=== PATIENT | female | born 1935 | race Caucasian/White ===

== ENCOUNTER 2020-05-15 11:42 | Outpatient (CLI) | payer MEDICARE, OTHER, SELFPAY ==
--- NOTE | 2020-05-21 16:11 | ONC FU_ITS ---
Dr. Kingston Patient Follow-Up Note Patient: Tonia Potts Unit #: [id number]: 1935 Dicatated By: Estuardo Kingston M.D.Date of Visit:May 15, 2020 Onc Med Follow-up/Prog Note Chief Complaint: Monoclonal gammopathy. 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 She had presented with progressive renal function decline over a course of several months. Her hemoglobin had decreased to 11 g/dl in February of 2011. Her serum protein electrophoresis revealed 0.38 g of monoclonal protein, IgG kappa subtype. A skeletal survey was unremarkable. On 05/07/2011 bone marrow biopsy showed no increase in plasma cells. Cytogenetics were normal. [place]/lambda ration was 4.74 on 09/08/2011. An MRI of the spine in August 2011 showed no evidence of myeloma or plasmacytoma. There was no M protein on 24 hour UPEP in February 2012 and in September 2012. Frther urine testing was therefore stopped. As her evaluation was consistent with monoclonal gammopathy of undetermined significance, she was followed observation/expectant management. She also continued regular follow-up with her coin purse framer. As of her follow-up visit in January 2018 there had been no significant change in her M protein and no clinical evidence of myeloma. Subsequent to that visit she was diagnosed with a deep vein thrombosis of the left leg, for which she was given 3-4 months of anticoagulation with a apixaban. Her other medical illnesses include hypertenison, dyslipidemia, stage III chronic kidney disease, and hypothyroidism. She has additional history of B12 deficiency. She is a nonsmoker. INTERIM HISTORY: As of her follow-up visit in April 2019 her M protein had remained stable at 0.35 g/dL and she appeared stable clinically with no evidence of myeloma. She continued observation/expectant management. She is seen for a follow-up visit. She says that most of time she feels pretty good. However, she does complain that she has been having weak spells. They come on suddenly, and she says it feels like she has to sit down right away or she will fall. She has not had any actual loss of consciousness. She continues to have limited mobility, and for the past several months she has been using a walker to ambulate. She is still able to do light work, though. Her ECOG score is 1. She has good appetite. She does not have fever or night sweats. She has nonproductive cough associated with sinus drainage. She does not complain of shortness of breath. She has had a little bit of chest pain in the substernal area, which she describes as just the pain and then it is gone . She occasionally has nausea. She sometimes has diarrhea. She has urinary frequency and nocturia, and she has some urgency with urination. She has pain in her knees and she says her knees sometimes give out. She has a little arthritis in her right thumb. She has generalized muscle weakness. She does not complain of headache. She occasionally feels a little bit dizzy. She has no numbness/paresthesia or other focal neurologic symptoms. Medications: amLODIPine Besylate Tablet Oral, Cholecalciferol 1 (2000 Units) Tablet Oral daily, Fiber (Guar Gum) 2 Tablet, chewable Oral daily, Lasix 1 (40 mg) Tablet Oral daily, Levothyroxine Sodium 1 (50 mcg) Tablet Oral daily, Metoprolol Succinate ER 1 (25 mg) Tablet SR 24 HR Oral daily, PreserVision AREDS 2 Tablet Oral daily Allergies: Clindamycin HCl, Penicillins, and Sulfa Drugs. Review of Systems: Constitutional - She says she feels pretty good most of the time, though she has had some weak spells. Her energy is otherwise okay, though for the past several months she has been using a walker to ambulate. She is still able to do light work. She has good appetite. She does not have fever or night sweats. ECOG score is 1, ENMT - She has sinus drainage. No mouth sores. No sore throat or difficulty swallowing, Hematologic/Lymphatic - She says she bruises pretty easily, Respiratory - No shortness of breath. She has nonproductive cough. No pleuritic pain or hemoptysis, Cardiovascular - She has had a little bit of chest pain in the substernal area. She says it is just a pain and then it is gone . She has had no palpitations, Gastrointestinal - She occasionally has nausea. No heartburn or acid reflux. She sometimes has diarrhea. No blood in the stool or black stools, Genitourinary (F) - No dysuria or hematuria. She has urinary frequency and nocturia, and she has some urgency with urination. No incontinence, Musculoskeletal - She has some arthritis pain, particularly in her right thumb. She has pain in her knees, and she complains that her knees sometimes give out. She has generalized muscle weakness, Integumentary - No skin rash, Neurologic - No headache. She occasionally feels a little bit dizzy. No numbness or tingling. No other focal neurologic symptoms, Psychiatric - No anxiety or depression. No insomnia. Vital Signs: Performed on May 15, 2020 11:20 Height - 67.00 in Weight - 194 lbs (LOW) BSA - 2.00 sq.m BMI - 30.38 (HIGH) Temperature - 97.0 F (LOW) Pulse - 77 /min Respiration - 18 /min BP - 128/70 mm(hg) O2 Sat - 98 % Pain - 0 Physical Examination: Constitutional - She appears somewhat weak generally, and she has limited mobility, Eyes - Sclerae nonicteric. Conjunctivae clear, ENMT - No lesions noted in the oral cavity, Hematologic/Lymphatic - No cervical, clavicular, or axillary adenopathy, Respiratory - Lungs are clear with good air movement bilaterally, Cardiovascular - Heart rhythm is regular. There is no murmur, gallop or rub noted, Abdomen - Soft. Liver and spleen are not enlarged. There is no abdominal mass or ascites noted and there is no inguinal adenopathy, Extremities - There are venous stasis changes bilaterally, and there is 2+ lower extremity edema. Dorsalis pedis pulses are palpable bilaterally, Neurologic - No focal neurologic deficits noted. Lab/Imaging: Test performed on May 08, 2020 09:40 Glucose 76 mg/dL Protein, Total 6.3 g/dL Albumin, SPE 3.80 g/dL BUN 34 mg/dL Creatinine 1.23 mg/dL Cr Clearance (Est) 48.37 mL/min Sodium 135 mmol/L Potassium 4.0 mmol/L Chloride 100 mmol/L CO2 26 mmol/L Calcium 10.0 mg/dL Albumin 4.0 g/dL Bilirubin, Total 0.7 mg/dL Alkaline Phosphatase 83 IU/L AST (SGOT) 17 IU/L ALT (SGPT) 10 IU/L Sed Rate 16 mm/hr WBC 4.4 10^9/L RBC 3.99 10^12/L HGB 12.3 g/dL HCT 38.2 % MCV 95.7 fl MCH 30.8 pg MCHC 32.2 g/dL RDW 13.0 % Platelet Count 260 10^9/L MPV 9.3 fL Neutrophils (Gran) 2.89 10^9/L Lymphocytes 0.93 10^9/L Monocytes 0.44 10^9/L Eosinophils 0.10 10^9/L Basophils 0.02 10^9/L Manual Lymphocytes 21 % Manual Monocytes 10 % Manual Eosinophils 2 % Manual Basophils 1 % Ztlcb-[id number]-[id number] 0.28 g/dL Ghrbs-3-snlwtbkn 0.78 g/dL Beta Globulin 0.661 g/dL Gamma Globulin 0.80 g/dL SPE Interpretation No significant change in monoclonal proteinemia since prior study Impression: 1. 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 It was initially discovered in February 2011. Her evaluation at that time showed no evidence of myeloma. She has been followed on observation/expectant management. 2. She had pre-existing chronic kidney disease, and she had been showing decline in renal function, but it subsequently improved and stabilized. Her other medical illnesses include: 3. Hypertension. 4. Dyslipidemia. 5. Hypothyroidism. 6. She has history of cardiac arrhythmia, which I had assumed was atrial fibrillation or possibly SVT. As of her follow-up visit in January 2018 there had been no significant change in her M protein. Subsequent to that visit, she had developed worsening lower extremity edema, requiring increase in her diuretic therapy. She also required treatment for deep vein thrombosis of the left leg. However, as of her follow-up visit in April 2019 her M protein had remained stable, and there was still no clinical evidence of myeloma. Since her last visit, there has been some further decline in her mobility and in her performance status. She has had episodes described as weak spells . At this point I am not sure whether those are related more to dysequilibrium or to near syncope. Her blood counts, though, remain normal, her renal function has remained stable, and there also has been no change in her M protein level, which currently quantitated 0.41 g/dL. There has been an increase in her free kappa light chain, the significance of which is uncertain. However, by clinical evaluation, she does not have any evidence of symptomatic myeloma. Plan: She remains on observation/expectant management. As a precaution, I am going to have her bring in a 24-hour urine to check for monoclonal protein excretion. I will timely just plan a follow-up visit again in 1 year. Signed By: Estuardo Kingston M.D. <<Signature on File>>
== END 2020-05-15 11:43 | disposition home or self-care (01) ==
LOC: ONCMED 11:43
PROVIDERS: PCP Physician Assistant Medical; Visit Provider Internal Medicine Medical Oncology
DX: D47.2 Monoclonal gammopathy (principal); R53.1 Weakness; I12.9 Hypertensive chronic kidney disease with stage 1 through stage 4 chronic kidney disease, or unspecified chronic kidney disease; N18.9 Chronic kidney disease, unspecified; E78.5 Hyperlipidemia, unspecified; E03.9 Hypothyroidism, unspecified; I49.9 Cardiac arrhythmia, unspecified; Z86.718 Personal history of other venous thrombosis and embolism
CPT/HCPCS: G0463

== ENCOUNTER 2021-07-22 14:15 | Outpatient (CLI) | payer MEDICARE, OTHER, SELFPAY ==
[2021-07-22 15:37] LABS: Basophils # 0.1 10^3/uL (0.0-0.1); Basophils % 0.8 %; Eosinophils # 0.1 10^3/uL (0.0-0.8); Eosinophils % 1.1 %; Hematocrit 43.8 % (37.0-47.0); Hemoglobin 13.9 g/dL (11.5-15.3); Lymphocytes # 1.3 10^3/uL (0.8-4.8); Lymphocytes % 20.2 %; Mean Corpuscular HGB Conc 31.7 g/dL (30.0-36.0); Mean Corpuscular Hemoglobin 30.1 pg (28.0-34.0); Mean Corpuscular Volume 94.8 fl (81-99); Mean Platelet Volume 9.7 fL (7.4-10.4); Monocytes # 0.5 10^3/uL (0.2-0.9); Monocytes % 8.1 %; Neutrophils # 4.56 10^3/uL (1.8-7.7); Neutrophils % 69.6 %; Nucleated Red Blood Cells % 0 %; Platelet Count 273 10^3/cmm (130-400); Red Blood Count 4.62 10^6/uL (4.1-5.3); Red Cell Distribution Width 13.3 % (12.1-15.1); White Blood Count 6.5 10^3/uL (4.0-10.0)
[2021-07-22 16:00] LABS: Alanine Aminotransferase 12 U/L (0-33); Albumin Level 4.2 g/dL (3.5-5.2); Alkaline Phosphatase 88 IU/L (35-105); Anion Gap 16.2 (5-19); Aspartate Amino Transferase 17 U/L (0-32); Blood Urea Nitrogen 40 mg/dL (8-23); Calcium 9.9 mg/dL (8.5-10.5); Carbon Dioxide 26 mmol/L (22-29); Chloride 99 mmol/L (98-107); Globulin 2.8 g/dL (1.3-4.6); Glucose 87 mg/dL (65-115); Osmolality Calculated 293 mOsm/kg (285-295); Potassium 4.2 mmol/L (3.5-5.1); Sodium 137 mmol/L (136-145); Total Bilirubin 0.9 mg/dL (0.15-1.2)
--- NOTE | 2021-07-22 20:14 | ONC FU_ITS ---
Dr. Kingston Patient Follow-Up Note Patient: Tonia Potts Unit #: [id number]: 1935 Dicatated By: Estuardo Kingston M.D.Date of Visit:Jul 22, 2021 Onc Med Follow-up/Prog Note Chief Complaint: Monoclonal gammopathy. 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 She had presented with progressive renal function decline over a course of several months. Her hemoglobin had decreased to 11 g/dl in February of 2011. Her serum protein electrophoresis revealed 0.38 g of monoclonal protein, IgG kappa subtype. A skeletal survey was unremarkable. On 05/07/2011 bone marrow biopsy showed no increase in plasma cells. Cytogenetics were normal. [place]/lambda ration was 4.74 on 09/08/2011. An MRI of the spine in August 2011 showed no evidence of myeloma or plasmacytoma. There was no M protein on 24 hour UPEP in February 2012 and in September 2012. Frther urine testing was therefore stopped. As her evaluation was consistent with monoclonal gammopathy of undetermined significance, she was followed observation/expectant management. She also continued regular follow-up with her charm filter operator helper. As of her follow-up visit in January 2018 there had been no significant change in her M protein and no clinical evidence of myeloma. Subsequent to that visit she was diagnosed with a deep vein thrombosis of the left leg, for which she was given 3-4 months of anticoagulation with a apixaban. With her follow-up visit in April 2019 her M protein remained stable at 0.35 g/dL. Her other medical illnesses include hypertenison, dyslipidemia, stage III chronic kidney disease, and hypothyroidism. She has additional history of B12 deficiency. She is a nonsmoker. INTERIM HISTORY: As of April 2020 her M protein was stable at 0.41 g/dL and she appeared stable clinically with no evidence of myeloma. She continued observation/expectant management. She is seen for a follow-up visit. She has been feeling pretty good generally. She does have limited activity, which she is still able to live independently. She ambulates with a walker and she does her housework. ECOG score is 1. She has good appetite. She has no fever or night sweats. She has sinus drainage and states sometimes has cough. She does not complain of shortness of breath or chest pain. She occasionally has nausea and she also has some mild constipation. She has chronic lower extremity edema, and she gets up 4-5 times during the night to void. She complains of her knees give out and sometimes her ankles give out. She otherwise has no joint or bone pain. She does not complain of headache or dizziness, and she has no focal neurologic symptoms. Medications: amLODIPine Besylate Tablet Oral, Cholecalciferol 1 (2000 Units) Tablet Oral daily, Fiber (Guar Gum) 2 Tablet, chewable Oral daily, Lasix 1 Tablet (of 40 mg) Oral daily, Lasix 1 (40 mg) Tablet Oral daily, Levothyroxine Sodium 1 (50 mcg) Tablet Oral daily, Metoprolol Succinate ER 1 (25 mg) Tablet SR 24 HR Oral daily, PreserVision AREDS 2 Tablet Oral daily Allergies: Clindamycin HCl, Penicillins, and Sulfa Drugs. Vital Signs: Performed on Jul 22, 2021 15:37 Height - 67.00 in Weight - 186 lbs (LOW) BSA - 1.96 sq.m BMI - 29.13 Temperature - 96.0 F (LOW) Pulse - 78 /min Respiration - 18 /min BP - 129/89 mm(hg) O2 Sat - 97 % Pain - 0 Fatigue - 6 Physical Examination: Constitutional - She has limited mobility, but she otherwise looks pretty good generally, Eyes - Sclerae nonicteric. Conjunctivae clear, ENMT - No lesions noted in the oral cavity, Hematologic/Lymphatic - No cervical, clavicular, or axillary adenopathy, Respiratory - Lungs are clear with good air movement bilaterally, Cardiovascular - Heart rhythm is regular. There is no murmur, gallop or rub noted, Abdomen - Soft. Liver and spleen are not enlarged. There is no abdominal mass or ascites noted and there is no inguinal adenopathy, Extremities - There are venous stasis changes bilaterally, and there is 2+ lower extremity edema, Neurologic - No focal neurologic deficits noted. Lab/Imaging: Test performed on Jul 22, 2021 15:14 Sodium 137 mmol/L Potassium 4.2 mmol/L Chloride 99 mmol/L CO2 26 mmol/L Anion Gap 16.2 BUN 40 mg/dL Creatinine 1.1 mg/dL Cr Clearance (Est) 48.9000 mL/min Glucose 87 mg/dL Osmolality - Calculated 293 mOsm/kg Calcium 9.9 mg/dL Protein, Total 7.0 g/dL Albumin 4.2 g/dL Globulin 2.8 g/dL Bilirubin, Total 0.9 mg/dL ALT (SGPT) 12 U/L AST (SGOT) 17 U/L Alkaline Phosphatase 88 IU/L WBC 6.5 10 3/uL RBC 4.62 10 6/uL HGB 13.9 g/dL HCT 43.8 % MCV 94.8 fl MCH 30.1 pg MCHC 31.7 g/dL RDW 13.3 % Platelet Count 273 10 3/cmm MPV 9.7 fL Neutrophils 4.56 10 3/uL Lymphocytes 1.3 10 3/uL Monocytes 0.5 10 3/uL Eosinophils 0.1 10 3/uL Basophils 0.1 10 3/uL Neutrophil % 69.6 % Lymphocyte % 20.2 % Monocyte % 8.1 % Eosinophil % 1.1 % Basophils % 0.8 % NRBC % 0 % Problem List: 1. 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 2. She had pre-existing chronic kidney disease. 3. Hypertension. 4. Dyslipidemia. 5. Hypothyroidism. 6. She has history of cardiac arrhythmia, which I had assumed was atrial fibrillation or possibly SVT. 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 It was initially discovered in February 2011. Her evaluation at that time showed no evidence of myeloma and she was followed with expectant management. She had pre-existing chronic kidney disease, and she had been showing decline in renal function, but it subsequently improved and stabilized. During follow-up she has had somewhat limited activity tolerance, but as of April 2020 her M protein had remained stable and there have been no evidence clinically of myeloma. Her current protein electrophoresis studies are pending. Her CBC, though, is normal and her comprehensive metabolic profile shows stable renal function with BUN 40 and creatinine 1.1 mg/dL. Her overall clinical status also appears stable. Assuming there is no significant change in her quantitative M protein, she will just continue with yearly surveillance. Signed By: Estuardo Kingston M.D. <<Signature on File>>
[2021-07-23 08:46] LABS: PROTEIN, TOTAL 6.6 g/dL (6.1-8.1)
[2021-07-23 12:47] LABS: ABNORMAL PROTEIN BAND 1 0.5 g/dL (NONE DETECTED); ALBUMIN 3.8 g/dL (3.8-4.8); ALPHA 1 GLOBULIN 0.3 g/dL (0.2-0.3); ALPHA 2 GLOBULIN 0.9 g/dL (0.5-0.9); BETA 1 GLOBULIN 0.4 g/dL (0.4-0.6); BETA 2 GLOBULIN 0.3 g/dL (0.2-0.5); GAMMA GLOBULIN 0.9 g/dL (0.8-1.7)
[2021-07-23 14:29] LABS: KAPPA/LAMBDA LIGHT CHAINS FREE 6.27 (0.26-1.65); LAMBDA LIGHT CHAIN, FREE, SERU 25.5 mg/L (5.7-26.3)
[2021-07-25 12:42] LABS: Erythrocyte Sedimentation Rate 14 mm/hr (0-15)
== END 2021-07-22 14:16 | disposition home or self-care (01) ==
PROVIDERS: PCP Physician Assistant Medical; Visit Provider Internal Medicine Medical Oncology
DX: D47.2 Monoclonal gammopathy (principal); N18.9 Chronic kidney disease, unspecified; I10 Essential (primary) hypertension; E78.5 Hyperlipidemia, unspecified; E03.9 Hypothyroidism, unspecified; I49.9 Cardiac arrhythmia, unspecified; Z79.899 Other long term (current) drug therapy
CPT/HCPCS: 36415; 80053; 83883; 84155; 84165; 85025; 85651; 99214

== ENCOUNTER 2023-01-19 13:21 | Oncology outpatient (recurring) (ONCR) | payer MEDICARE, OTHER, SELFPAY | END 2023-01-25 23:59 | disposition home or self-care (01) | LOC: ONCMED 13:21 | PROVIDERS: PCP Family Medicine; Visit Provider Internal Medicine Medical Oncology | DX: D47.2 Monoclonal gammopathy (principal); R74.8 Abnormal levels of other serum enzymes | CPT/HCPCS: 99213 ==

== ENCOUNTER 2023-07-05 10:33 | Inpatient (IN) | payer MEDICARE, OTHER, SELFPAY ==
[2023-07-05] VITALS (20 sets, daily range): BP systolic 119–176; BP diastolic 59–105; PULSE 59–86; RESP 10–24; TEMP 36.1–37.3; O2SAT 97–100; BMI 29.2
--- NOTE | 2023-07-05 10:37 | XRR_ITS ---
PROCEDURE INFORMATION: Exam: XR Chest Exam date and time: 07/05/2023 11:26 AM Age: 88 years old Clinical indication: Injury or trauma; Fall; Blunt trauma (contusions or hematomas); Additional info: Chest pain TECHNIQUE: Imaging protocol: Radiologic exam of the chest. Views: 1 view. COMPARISON: CT cervical spin wo con* [id number] 07/05/2023 11:21 AM FINDINGS: Lungs: Unremarkable. No consolidation. Pleural spaces: Unremarkable. No pleural effusion. No pneumothorax. Heart/Mediastinum: Unremarkable. No cardiomegaly. Bones/joints: there is a osteoarthritis with multilevel intervertebral disc space narrowing throughout the dorsolumbar spine. There is levoscoliosis XR/XR chest 1V portable [id number] IMPRESSION: 1. No acute findings. 2. 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
--- NOTE | 2023-07-05 10:38 | ECG_ITS ---
[facility] Test Date: 2023-07-05 Pat Name: Tonia Potts Department: Room: Gender: Female [employer]oom: : 1935 Requested By: Micah Billingsley Order Number: [id number] Abel MD: Lakhwinder Mcneal M.D. Measurements Intervals [place] Rate: 71 P: 67 WI: 182 QRS: -24 QRSD: 89 T: -6 QT: 393 QTc: 428 Interpretive Statements SINUS RHYTHM BORDERLINE LEFT AXIS DEVIATION [QRS AXIS < -20] LOW QRS VOLTAGE IN PRECORDIAL LEADS [QRS DEFLECTION < 1.0 mV IN CHEST LEADS] No previous ECG available for comparison Electronically Signed On 07-05-2023 22:52:19 CDT by Lakhwinder Mcneal M.D. [id number]
--- NOTE | 2023-07-05 10:40 | ED_ITS ---
HPI - Fall General: Chief Complaint: Fall Stated Complaint: CHEST PAIN; RIGHT LEG PAIN S/P FALL Time Seen by Provider: 07/05/23 10:34 Source: patient Mode of arrival: ambulatory History of Present Illness: 88-year-old female who presents emergency room from home after a fall. She stumbled and fell at home states she falls quite often she is complaining some right leg pain and some chest discomfort chest comfort began after she had fallen. She has no known history of coronary artery disease. She has not taken any of her medications this morning the pain is worse with deep breath. She denies any radiation of the pain. No nausea vomiting or diaphoresis. MD complaint: fall Onset (ago): day(s) (1) Fall from: standing Fall witnessed: no Place fall occurred: home Loss of consciousness: None Prolonged down time: unclear Symptoms prior to fall: none Context: tripped/slipped Location of injury: head and other (6 months ago fell and injured left wrist that is deformed she was never evaluated) Location of injury - extremities: Right: arm and lower leg Quality: dull Associated symptoms-after fall: Reports neck pain; Denies abdominal pain or chest pain Review of Systems Const: Denies: fever(s) or chills Card: Denies: chest pain Resp: Denies: dyspnea GI: Denies: abdominal pain : Denies: dysuria, urinary frequency or urinary urgency Musc: Reports: neck pain; Denies: back pain Skin/Breast: Denies: rash Jameel/Lymph: Reports: easy bruising PFS ED PFSH: Medical History (Updated 07/05/23 @ 13:52 by Micah Gaspar DO) B12 deficiency CKD (chronic kidney disease) History of deep venous thrombosis (DVT) of distal vein of left lower extremity Hyperlipidemia Hypertension Hypothyroidism Lymphedema Monoclonal gammopathy of unknown significance Surgical History (Updated 01/23/23 @ 16:25 by Estuardo Kingston MD) History of cholecystectomy 2005 History of colonoscopy 2009 History of surgical removal of skin lesion Neck - 1970 Basal Cell of neck History of tonsillectomy and adenoidectomy 194 Family History (Updated 01/19/23 @ 13:44 by Doris Christensen LPN) Brother Chronic kidney disease (CKD) Other Cancer Diabetes Hyperlipidemia Hypertension Denies family history of CAD (coronary artery disease) Clotting disorder Dementia Psychiatric illness Suicide Anesthesia complication Bleeding disorder Lung disease Stroke Social History (Updated 01/19/23 @ 13:42 by Doris Christensen LPN) Smoking and tobacco status: never smoked Physical Exam Const: GENERAL APPEARANCE: cooperative and comfortable OR IENTATION/CONSCIOUSNESS: Yes awake, Yes oriented to person, Yes oriented to place and Yes oriented to time HENMT: COMMON NORMALS: normocephalic, atraumatic and hearing grossly normal bilaterally HEAD & SCALP: normocephalic and atraumatic Resp: COMMON NORMALS: normal respiratory effort, No retractions, No use of accessory muscles and clear to auscultation bilaterally AUSCULTATION: clear to auscultation bilaterally Cardio: COMMON NORMALS: regular rate, regular rhythm and No murmurs present (Cardio) RATE: regular rate RHYTHM: regular rhythm GI: COMMON NORMALS: Soft to palpation and No hepatosplenomegaly present AUSCULTATION: Yes normoactive bowel sounds PALPATION: Yes Soft to palpation, No Tenderness to palpation present (GI), No Guarding due to palpation present (GI) and Yes No hepatosplenomegaly present Extremity: COMMON NORMALS: normal to inspection, capillary refill normal, no clubbing, cyanosis or edema, no calf tenderness and no pedal edema OTHER: Ecchymosis right forearm small area of ecchymosis on the medial aspect of the right cheek consistent with injury from the frame of her glasses. Chronic venous stasis changes of the lower extremities with a small hematoma on the right anterior tibia no skin tears no lacerations. Deformity of the left wrist consistent with old fracture no pain with palpation no swelling patient states this occurred 6 months ago Neuro: SENSORIUM/ORIENTATION: Yes oriented to person, Yes oriented to place and Yes oriented to time Skin: COMMON NORMALS: no rashes or lesions noted GENERAL SKIN EXAM: no rashes or lesions noted Course Vital Signs: Vital signs: Vital Signs Temperature 97.0 F L 07/05/23 10:34 Pulse Rate 67 07/05/23 13:17 Respiratory Rate 17 07/05/23 10:34 Blood Pressure 166/95 07/05/23 13:17 Pulse Oximetry 99 07/05/23 10:34 Oxygen Delivery Me thod Room Air 07/05/23 10:34 MDM - Fall Medical Decision Making X-ray showed no acute fractures there is a healing fracture of the left wrist consistent with clinical exam and history of fall several months ago. She has some mild renal insufficiency her troponin is elevated at 464. She complains of some chest discomfort that she states began after she had fallen. Is not entirely reproducible. Patient was given aspirin when she first arrived given topical nitro for blood pressure. Her second troponin is decreased. Did not give her any anticoagulation for now consulted hospitalist and cardiology. Orders written to [facility] cardiology as anticipating seeing the patient. EKGs did not show any acute ST elevation. Medical Records I reviewed the patient's medical records. Lab Data I reviewed the patient's lab results. 07/05/23 10:49 07/05/23 10:49 Radiology Impressions Chest X-Ray 07/05/23 10:37 IMPRESSION: 1. No acute findings. 2. 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 Tibia/Fibula X-Ray 07/05/23 10:54 IMPRESSION: 1. No acute findings. 2. Soft tissue edema lateral ankle Wrist X-Ray 07/05/23 10:54 IMPRESSION: 1. Healing transverse fracture distal shaft of the radius. 2. Dorsal angulation of the distal metaphysis of the radius. 3.Osteoarthritis Cervical Spine CT 07/05/23 10:55 IMPRESSION: No acute cervical fracture is identified. Head CT 07/05/23 10:55 IMPRESSION: 1. No acute intracranial hemorrhage. 2. Advanced small vessel ischemic disease of indeterminate age. 3. Mild parenchymal volume loss. Laboratory Results WBC 5.03 10^3/uL (3.29-11.43) 07/05/23 10:49 RBC 3.78 10^6/uL (3.85-5.65) L 07/05/23 10:49 Hgb 11.80 g/dL (11.27-16.99) 07/05/23 10:49 Hct 37.0 % (36-47) 07/05/23 10:49 MCV 97.9 fl (85-98) 07/05/23 10:49 MCH 31.2 pg (27-33) 07/05/23 10:49 MCHC 31.9 g/dL (30-55) 07/05/23 10:49 RDW 13.9 % (12.1-15.1) 07/05/23 10:49 Plt Count 229 10^3/cmm (157-399) 07/05/23 10:49 MPV 9.1 fL (7.4-10.4) 07/05/23 10:49 Neut % (Auto) 70.1 % 07/05/23 10:49 Lymph % (Auto) 22.1 % 07/05/23 10:49 [place] % (Auto) 6.4 % 07/05/23 10:49 Eos % (Auto) 0.6 % 07/05/23 10:49 Baso % (Auto) 0.6 % 07/05/23 10:49 Neut # (Auto) 3.53 10^3/uL (1.8-7.7) 07/05/23 10:49 Lymph # (Auto) 1.1 10^3/uL (0.8-4.8) 07/05/23 10:49 [place] # (Auto) 0.3 10^3/uL (0.2-0.9) 07/05/23 10:49 Eos # (Auto) 0.0 10^3/uL (0.0-0.8) 07/05/23 10:49 Baso # (Auto) 0.0 10^3/uL (0.0-0.1) 07/05/23 10:49 Nucleated RBC % (auto) 0 % 07/05/23 10:49 Nucleated RBCs # 0.0 /100WBC 07/05/23 10:49 Sodium 135 mmol/L (136-145) L 07/05/23 10:49 Potassium 4.3 mmol/L (3.5-5.1) 07/05/23 10:49 Chloride 101 mmol/L (98-107) 07/05/23 10:49 Carbon Dioxide 24 mmol/L (22-29) 07/05/23 10:49 Anion Gap 14.3 (5-19) 07/05/23 10:49 BUN 46 mg/dL (8-23) H 07/05/23 10:49 Creatinine 1.7 mg/dL (0.5-0.9) H 07/05/23 10:49 GFR Calculation Not Reportable 07/05/23 10:49 Glucose 92 mg/dL (65-115) 07/05/23 10:49 Calculated Osmolality 292 mOsm/kg (285-295) 07/05/23 10:49 Calcium 9.9 mg/dL (8.5-10.5) 07/05/23 10:49 Total Bilirubin 1.1 mg/dL (0.15-1.2) 07/05/23 10:49 AST 27 U/L (0-32) 07/05/23 10:49 ALT 12 U/L (0-33) 07/05/23 10:49 Alkaline Phosphatase 89 U/L (35-105) 07/05/23 10:49 Troponin T Baseline 464 ng/L (0-10) H* 07/05/23 10:49 Troponin T 120 Minute 437.5 ng/L (0-10) H 07/05/23 12:36 Delta Troponin T -26.5 ABS# (0-10) L 07/05/23 12:36 Total Protein 5.5 g/dL (6.6-8.7) L 07/05/23 10:49 Albumin 3.6 g/dL (3.5-5.2) 07/05/23 10:49 Globulin 1.9 g/dL (1.3-4.6) 07/05/23 10:49 All radiology interpretation(s) finalized by discharge Discharge Plan Discharge Admit Provider: Aileen Vee Clinical Impression: Elevated troponin, Acute on chronic renal insufficiency Condition: Stable Coding Level of Care Code ED Health Promotion Coordinator for Glen Lopez
--- NOTE | 2023-07-05 10:54 | XRR_ITS ---
PROCEDURE INFORMATION: Exam: XR Right Tibia and Fibula Exam date and time: 07/05/2023 11:26 AM Age: 88 years old Clinical indication: Injury or trauma; Fall; Blunt trauma; Lower leg; Right TECHNIQUE: Imaging protocol: Radiologic exam of the right tibia and fibula. Views: 2 views. COMPARISON: No relevant prior studies available. FINDINGS: Bones/joints: Negative for acute fracture. Soft tissues: Soft tissue edema lateral aspect of the ankle XR/XR tibia fibula RT 2V [id number] IMPRESSION: 1. No acute findings. 2. Soft tissue edema lateral ankle
--- NOTE | 2023-07-05 10:54 | XRR_ITS ---
PROCEDURE INFORMATION: Exam: XR Right Hip Exam date and time: 07/05/2023 11:26 AM Age: 88 years old Clinical indication: Injury or trauma; Fall; Blunt trauma (contusions or hematomas); Right; Hip TECHNIQUE: Imaging protocol: Radiologic exam of the right hip. Views: 1 view hip with pelvis when performed. COMPARISON: No relevant prior studies available. FINDINGS: Bones/joints: Unremarkable. No acute fracture. Soft tissues: Unremarkable. XR/XR hip RT 2-3V wo/w pel* [id number] IMPRESSION: No acute findings.
--- NOTE | 2023-07-05 10:54 | XRR_ITS ---
PROCEDURE INFORMATION: Exam: XR Left Wrist Exam date and time: 07/05/2023 11:26 AM Age: 88 years old Clinical indication: Injury or trauma; Fall; Blunt trauma (contusions or hematomas); Wrist; Left TECHNIQUE: Imaging protocol: Radiologic exam of the left wrist. Views: 3 or more views. COMPARISON: No relevant prior studies available. FINDINGS: Bones/joints: There is a transverse healing fracture with sclerotic density in the distal shaft of the radius. There is a dorsal angulation of the distal metaphysis of the radius. No additional bony abnormalities are seen. Osteoarthritis is seen with sclerosis and narrowing in the 1st metacarpal carpal articulations. The carpal bones are intact. Soft tissues: Normal. XR/XR wrist LT min 3V* [id number] IMPRESSION: 1. Healing transverse fracture distal shaft of the radius. 2. Dorsal angulation of the distal metaphysis of the radius. 3.Osteoarthritis
--- NOTE | 2023-07-05 10:55 | CTR_ITS ---
PROCEDURE INFORMATION: Exam: CT Cervical Spine Without Contrast Exam date and time: 07/05/2023 11:21 AM Age: 88 years old Clinical indication: Injury or trauma; Fall; Blunt trauma TECHNIQUE: Imaging protocol: Computed tomography of the cervical spine without contrast. Radiation optimization: All CT scans at this facility use at least one of these dose optimization techniques: automated exposure control; mA and/or kV adjustment per patient size (includes targeted exams where dose is matched to clinical indication); or iterative reconstruction. REPORTING DATA: Count of CT and Cardiac NM exams in prior 12 months: This patient has received 0 known CTs and 0 known cardiac nuclear medicine studies in the 12 months prior to the current study. COMPARISON: No relevant prior studies available. RADIATION DOSE METRICS: Total DLP (mGy-cm): 493.5 FINDINGS: Grade 1 anterolisthesis of C2, C3, C4, C7, T1 and T2. No prevertebral soft tissue swelling is seen. [id number] degenerative disc disease is seen in the cervical spine. No acute fracture is identified. The atlantoaxial interval and craniocervical junction are maintained. Small, scattered cervical lymph nodes are noted. Mild scarring in the lung apices. CT/CT cervical spin wo con* [id number] IMPRESSION: No acute cervical fracture is identified.
--- NOTE | 2023-07-05 10:55 | CTR_ITS ---
PROCEDURE INFORMATION: Exam: CT Head Without Contrast Exam date and time: 07/05/2023 11:21 AM Age: 88 years old Clinical indication: Injury or trauma; Fall; Blunt trauma (contusions or hematomas) TECHNIQUE: Imaging protocol: Computed tomography of the head without contrast. Radiation optimization: All CT scans at this facility use at least one of these dose optimization techniques: automated exposure control; mA and/or kV adjustment per patient size (includes targeted exams where dose is matched to clinical indication); or iterative reconstruction. REPORTING DATA: Count of CT and Cardiac NM exams in prior 12 months: This patient has received 0 known CTs and 0 known cardiac nuclear medicine studies in the 12 months prior to the current study. COMPARISON: No relevant prior studies available. RADIATION DOSE METRICS: Total DLP (mGy-cm): 901.3 FINDINGS: Brain: No acute intracranial hemorrhage. No mass, mass effect or midline shift. There is no evidence of acute large vessel infarct. There is advanced patchy subcortical and periventricular hypodensity, most commonly associated with small vessel ischemic disease of indeterminate age. The posterior fossa is grossly unremarkable; however, it is partially obscurred by beam hardening artifact. Cerebral ventricles: The ventricles are prominent, compatible with mild parenchymal volume loss. Paranasal sinuses: Retention cyst or polyp in the right ethmoid sinus. Mastoid air cells: No mastoid effusion. Auditory system: Probable cerumen in the right external auditory canal. Orbital cavities: The visualized orbits are unremarkable. Bones/joints: No acute fracture is seen. Soft tissues: No significant scalp soft tissue swelling. CT/CT head wo con* [id number] IMPRESSION: 1. No acute intracranial hemorrhage. 2. Advanced small vessel ischemic disease of indeterminate age. 3. Mild parenchymal volume loss.
[2023-07-05 10:58] LABS: Basophils % 0.6 %; Eosinophils % 0.6 %; Lymphocytes # 1.1 10^3/uL (0.8-4.8); Lymphocytes % 22.1 %; Mean Corpuscular HGB Conc 31.9 g/dL (30-55); Mean Corpuscular Hemoglobin 31.2 pg (27-33); Mean Corpuscular Volume 97.9 fl (85-98); Mean Platelet Volume 9.1 fL (7.4-10.4); Monocytes # 0.3 10^3/uL (0.2-0.9); Monocytes % 6.4 %; Neutrophils # 3.53 10^3/uL (1.8-7.7); Neutrophils % 70.1 %; Nucleated Red Blood Cells % 0 %; Platelet Count 229 10^3/cmm (157-399); Red Blood Count 3.78 10^6/uL (3.85-5.65); Red Cell Distribution Width 13.9 % (12.1-15.1); White Blood Count 5.03 10^3/uL (3.29-11.43)
[2023-07-05 11:34] LABS: Alanine Aminotransferase 12 U/L (0-33); Albumin Level 3.6 g/dL (3.5-5.2); Alkaline Phosphatase 89 U/L (35-105); Anion Gap 14.3 (5-19); Aspartate Amino Transferase 27 U/L (0-32); Blood Urea Nitrogen 46 mg/dL (8-23); Calcium 9.9 mg/dL (8.5-10.5); Carbon Dioxide 24 mmol/L (22-29); Chloride 101 mmol/L (98-107); Globulin 1.9 g/dL (1.3-4.6); Glucose 92 mg/dL (65-115); Osmolality Calculated 292 mOsm/kg (285-295); Potassium 4.3 mmol/L (3.5-5.1); Sodium 135 mmol/L (136-145); Total Bilirubin 1.1 mg/dL (0.15-1.2); Total Protein 5.5 g/dL (6.6-8.7)
[2023-07-05 11:36] LABS: Creatinine Clr Calc Pharmacy 22.9899; Troponin(5th) Baseline 464 ng/L (0-10)
[2023-07-05] MEDS: aspirin 81 mg Chew Tablet 324 MG PO (11:41)
--- NOTE | 2023-07-05 12:11 | ECG_ITS ---
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 Measurements Intervals [place] Rate: 65 P: 67 IA: 171 QRS: -22 QRSD: 93 T: -7 QT: 411 QTc: 430 Interpretive Statements SINUS RHYTHM WITH OCCASIONAL SUPRAVENTRICULAR PREMATURE COMPLEXES BORDERLINE LEFT AXIS DEVIATION [QRS AXIS < -20] MODERATE VOLTAGE CRITERIA FOR LVH, CONSIDER NORMAL VARIANT [MEETS CRITERIA IN ONE OF: R(aVL), S(V1), R(V5), R(V5/V6)+S(V1)] Compared to ECG 07/05/2023 10:36:56 No significant changes Electronically Signed On 07-05-2023 22:57:35 CDT by Lakhwinder Mcneal M.D. [id number]
[2023-07-05 13:08] LABS: Troponin 5 2HR Delta -26.5 ABS# (0-10)
[2023-07-05 13:09] LABS: Troponin 5 2HR 437.5 ng/L (0-10)
[2023-07-05] MEDS: nitroglycerin 1 gm/inch oint Pkt 1 INCH TOPICAL (13:17)
[2023-07-05] MEDS: sodium chloride 0.9% 500 ML IV (13:20)
[2023-07-05] MEDS: sodium chloride 0.9% 1,000 ML 100 ML IV (15:09)
--- NOTE | 2023-07-05 15:52 | PM.HP ---
Providers/Chief Complaint Admitting Physician: Aileen Vee MD Primary Care Provider: Kavin Quick Chief Complaint: CHEST PAIN; RIGHT LEG PAIN S/P FALL History of Present Illness Tonia Potts is a 88 year old female without significant past medical history of [place] or CHF presented with chief complaint of chest pain. She is stating that for last 3 to 4 days she has been experiencing chest pain which mainly gets worse on deep breathing, she has not experienced any diaphoresis, syncope however she is endorsing nausea without any episode of vomiting. She lives alone, uses a walker, her family lives near her property. At the time of my evaluation she has been evaluated by cardiology there is no plan for angiogram considering high creatinine. She is chest pain-free has a Nitropaste on her chest Hemodynamic stable. Review of Systems Const: Denies: chills Eyes: Denies: change in vision ENMT: Denies: throat pain Card: Reports: chest pain and swelling of feet/ankles Resp: Denies: dyspnea GI: Denies: abdominal pain : Denies: flank pain Medications/Allergies Home Medications Medication Instructions Recorded Confirmed Last Taken Type cholecalciferol (vitamin D3) 50 50 mcg PO QAM 09/16/21 07/05/23 07/04/23 History mcg (2,000 unit) capsule allopurinol 100 mg tablet 100 mg PO QAM 01/19/23 07/05/23 07/04/23 History furosemide 40 mg tablet 40 mg PO QAM 01/19/23 07/05/23 07/04/23 History levothyroxine 75 mcg tablet 75 mcg PO QAM 07/05/23 07/05/23 07/04/23 History metoprolol succinate 25 mg 25 mg PO QAM 07/05/23 07/05/23 07/04/23 History tablet,extended release 24 hr Allergies Allergy/AdvReac Type Severity Reaction Status Date / Time Penicillins Allergy Unknown unkown Verified 07/05/23 13:21 Sulfa (Sulfonamide Allergy Unknown unkown Verified 07/05/23 13:21 Antibiotics) PFSH Acute PFSH: Medical History B12 deficiency CKD (chronic kidney disease) History of deep venous thrombosis (DVT) of distal vein of left lower extremity Hyperlipidemia Hypertension Hypothyroidism Lymphedema Monoclonal gammopathy of unknown significance Surgical History History of cholecystectomy 2005 History of colonoscopy 2009 History of surgical removal of skin lesion Neck - 1970 Basal Cell of neck History of tonsillectomy and adenoidectomy 194 Family History Brother Chronic kidney disease (CKD) Other Cancer Diabetes Hyperlipidemia Hypertension Denies family history of CAD (coronary artery disease) Clotting disorder Dementia Psychiatric illness Suicide Anesthesia complication Bleeding disorder Lung disease Stroke Social History Smoking and tobacco status: never smoked Vitals/I&O/Wt Last Vital Signs Temp 97.0 F L 07/05/23 10:34 Pulse 69 07/05/23 14:24 Resp 18 07/05/23 14:00 BP 151/97 07/05/23 14:00 Pulse Ox 100 07/05/23 14:00 O2 Del Method Room Air 07/05/23 14:25 07/05/23 07/05/23 07/05/23 06:59 14:59 22:59 Intake Total 500 / 500 Balance 500 / 500 Weight last 48 hrs Weight 77.111 kg Physical Exam Narrative: Lower extremity edema Signs of CHF present Currently on room air Hemodynamic stable Heart rate 66 S1, S2 I did not appreciate any murmur Abdomen soft Pleasant and cooperative Nonfocal neuro exam GCS 15 Data 07/05/23 10:49 07/05/23 10:49 A&P Assessment and plan (1) Hyperlipidemia: (2) Elevated troponin: (3) Acute on chronic renal insufficiency: (4) Lymphedema: (5) Hypothyroidism: (6) Acute kidney injury superimposed on chronic kidney disease: (7) Bilateral lower extremity edema: (8) Diastolic CHF: Plan Diastolic CHF exacerbation New onset Grade 1 diastolic function EF 55% Start diuretics Non-STEMI Start ACS protocol Aspirin and Plavix Considering high creatinine I will only once a day therapeutic regimen of Lovenox Further additional medications as per cardiology recommendations EKG without ischemic or infarctive changes Chronic lower extremity edema Lymphedema History of hypothyroidism Patient is a walker at home Acute on chronic kidney disease Anticipate improvement with diuresis Avoid nephrotoxic agents Patient is DNI/DNI Cardiac diet DVT prophylaxis on board Goals of care discussed with the patient she is not full code she does not want CPR resuscitation or ventilator support Attestations Medical Necessity Statement*: More than 2 midnights anticipated Diagnoses Hyperlipidemia E78.5 Elevated troponin R79.89 Acute on chronic renal insufficiency N28.9; N18.9 Lymphedema I89.0 Hypothyroidism E03.9 Acute kidney injury superimposed on chronic kidney disease N17.9; N18.9 Bilateral lower extremity edema R60.0 Diastolic CHF I50.30
--- NOTE | 2023-07-05 15:57 | USCV_ITS ---
Tonia Potts Age: 88 Gender: F : 1935 Exam Date: 07/05/2023 16:27 Ordering Phys: Aileen Vee MD Technologist: Sandoval Boucher Exam Location: [facility] [place] Indication: nstemi BP: 120 / 60 HR: 71 Rhythm: Sinus Technical Quality: Adequate MEASUREMENTS (Male / Female) Normal Values 2D ECHO LVOT Diameter 2.0 cm LV Ejection Fraction MOD 2C 52.3 % LV Ejection Fraction 2C AL 52.7 % LA Diameter 3.2 cm LA Width 3.1 cm LA Height 4.8 cm RA Width 3.5 cm RA Height 4.4 cm Aorta at Sinotubular Diameter 2.9 cm IVC Diameter 1.4 cm M-MODE Aortic Annulus Diameter 1.4 cm LA Ao Ratio MM 2.3 MV E Point Septal Separation 0.5 cm DOPPLER AV Peak Velocity 153.0 cm/s LVOT Peak Velocity 113.0 cm/s AV Area Cont Eq vti 2.5 cm squared AV Area Cont Eq pk 2.3 cm squared MV Peak Velocity 100.0 cm/s MV Area PHT 5.0 cm squared Mitral E to A Ratio 1.0 MV E' Velocity 48.0 cm/s Mitral E to MV E' Ratio 10.1 Mitral E to LV E' Lateral Ratio 8.7 Mitral E to LV E' Septal Ratio 12.0 TR Peak Velocity 232.2 cm/s TR Peak Gradient 21.6 mmHg TR Mean Velocity 186.0 cm/s TR Mean Gradient 14.6 mmHg TR Velocity Time Integral 61.2 cm Right Atrial Pressure 3.0 mmHg Pulmonary Artery Systolic Pressu 24.6 mmHg PV Peak Velocity 87.0 cm/s RV Acceleration Time 0.1 s RV Ejection Time 0.2 s RV AcT/ET 0.5 FINDINGS Left Ventricle Normal LV systolic function with estimated ejection fraction about 55%. No wall motion abnormalities. Grade 1 diastolic dysfunction Right Ventricle Normal in size and function Right Atrium Normal in size Left Atrium Normal insight Mitral Valve Mildly calcified. No significant mitral stenosis. There is mild mitral regurgitation Aortic Valve No significant aortic stenosis or aortic insufficiency the valve is moderately calcified Tricuspid Valve Structurally normal. There is mild regurgitation Pulmonic Valve Not well-visualized. There is mild pulmonic insufficiency Pericardium No pericardial effusion Aorta Normal IVC Normal CONCLUSIONS Paula Otto MD (Electronically Signed) Final Date: 05 July 2023 17:12 S
[2023-07-05] MEDS: enoxaparin 80 mg/0.8 mL Syringe SUBCUT (16:36)
--- NOTE | 2023-07-05 16:38 | ECG_ITS ---
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 Measurements Intervals [place] Rate: 73 P: 76 [place]: 192 QRS: -21 QRSD: 91 T: -24 QT: 414 QTc: 458 Interpretive Statements SINUS RHYTHM WITH FREQUENT SUPRAVENTRICULAR PREMATURE COMPLEXES BORDERLINE LEFT AXIS DEVIATION [QRS AXIS < -20] Compared to ECG 07/05/2023 12:11:50 No significant changes Electronically Signed On 07-05-2023 22:57:25 CDT by Lakhwinder Mcneal M.D. [id number]
--- NOTE | 2023-07-05 17:13 | P.CONIM_ITS ---
Providers/Reason For Consult Consulting Physician/Specialty*: Cardiology Reason for Consult*: Elevated troponin atypical chest pain. Attending Physician: Aileen Vee MD Primary Care Provider: Kavin Quick History of Present Illness History of Present Illness Tonia Potts is a 88 year old female with no prior history of coronary artery disease or congestive heart failure. She does have a history of hypertension and hyperlipidemia. Also has history of gummyopathy with underlying renal insufficiency. 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 Patient came to the emergency room where she was evaluated and found to have elevated troponin. Patient has atypical chest pain which mostly musculoskeletal and reproducible. She stated that she has this pain mostly after she fell. No significant chest pain prior to that. Currently doing well without any chest pain no respiratory distress. EKG showed normal sinus rhythm with nonspecific ST-T changes. Echocardiogram which was done today showed normal LV function with no significant wall motion abnormalities. Mild valvular disease. Review of Systems General: Reports: 10 or more systems reviewed and unremarkable except in HPI and below Narrative: No fever chills Const: Denies: fever(s) or chills Eyes: Reports: change in vision Card: Reports: chest pain (occasional); Denies: swelling of feet/ankles, lightheadedness, dyspnea on exertion or orthopnea Resp: Denies: dyspnea, productive cough or non-productive cough GI: Denies: abdominal pain, nausea or vomiting Musc: Reports: neck pain, back pain and joint pain Neuro: Denies: headache(s) or dizziness Psych: Denies: anxiety or depression Jameel/Lymph: Denies: easy bruising or easy bleeding Const: Denies fever(s) Eyes: Reports change in vision ENT: Reports neck pain Card: Reports chest pain (occasional); Denies dizziness Resp: Denies dyspnea on exertion GI: Denies abdominal pain, nausea or vomiting Musc: Reports back pain Neuro: Denies headache(s) Psych: Denies anxiety or depression Jameel/Lymph: Denies easy bleeding or easy bruising Medications/Allergies Home Medications Medication Instructions Recorded Confirmed Last Taken Type cholecalciferol (vitamin D3) 50 50 mcg PO QAM 09/16/21 07/05/23 07/04/23 History mcg (2,000 unit) capsule allopurinol 100 mg tablet 100 mg PO QAM 01/19/23 07/05/2323 History furosemide 40 mg tablet 40 mg PO QAM 01/19/23 07/05/23 07/04/23 History levothyroxine 75 mcg tablet 75 mcg PO QAM 07/05/23 07/05/23 07/04/23 History metoprolol succinate 25 mg 25 mg PO QAM 07/05/23 07/05/23 07/04/23 History tablet,extended release 24 hr Allergies Allergy/AdvReac Type Severity Reaction Status Date / Time Penicillins Allergy Unknown unkown Verified 07/05/23 13:21 Sulfa (Sulfonamide Allergy Unknown unkown Verified 07/05/23 13:21 Antibiotics) Current Medications Generic Name Dose Route Start Last Admin Trade Name Freq PRN Reason Stop Dose Admin Sodium Chloride 1,000 mls @ 100 mls/hr 07/05/23 14:17 07/05/23 15:09 Sodium Chloride 0.9% IV 100 mls/hr .Q10H JOCELYNE Administration PFSH Acute PFSH: Medical History (Updated 07/05/23 @ 17:26 by Paula Mullen MD) B12 deficiency CKD (chronic kidney disease) History of deep venous thrombosis (DVT) of distal vein of left lower extremity Hyperlipidemia Hypertension Hypothyroidism Lymphedema Monoclonal gammopathy of unknown significance Surgical History History of cholecystectomy 2005 History of colonoscopy 2009 History of surgical removal of skin lesion Neck - 1969 Basal Cell of neck History of tonsillectomy and adenoidectomy 1943 Family History Brother Chronic kidney disease (CKD) Other Cancer Diabetes Hyperlipidemia Hypertension Denies family history of CAD (coronary artery disease) Clotting disorder Dementia Psychiatric illness Suicide Anesthesia complication Bleeding disorder Lung disease Stroke Social History Smoking and tobacco status: never smoked Dietary Habits: Current diet type/program: regular Caffeine: Yes Caffeine intake frequency: coffee Vitals/I&O/Wt Last Vital Signs Temp 97.0 F L 07/05/23 10:34 Pulse 72 07/05/23 16:26 Resp 18 07/05/23 16:26 BP 151/97 10/08/23 14:00 Pulse Ox 99 07/05/23 16:26 O2 Del Method Room Air 07/05/23 16:26 07/05/23 07/05/23 07/05/23 06:59 14:59 22:59 Intake Total 500 / 500 Balance 500 / 500 Weight last 48 hrs Weight 170 lb Physical Exam Const: COMMON NORMALS: no acute distress, patient oriented x3, no limitations, alert and well nourished HENMT: COMMON NORMALS: normocephalic, atraumatic, hearing grossly normal bilaterally and gingiva normal HEAD & SCALP: normocephalic and atraumatic Eye: COMMON NORMALS: Equal, round and reactive pupils present and EOMs intact bilaterally GENERAL EYE: appearance normal, both eyes and all related structures PUPIL: Yes Equal, round and reactive pupils present Neck/C-Spine: COMMON NORMALS: no JVD GENERAL: Yes normal visual inspection CAROTIDS: Yes normal carotid upstroke Chest: COMMONS NORMALS: normal inspection of the chest CHEST: Yes Symmetrical chest wall rise OTHER: Mild reproducible chest tenderness Resp: COMMON NORMALS: normal respiratory effort, No retractions, clear to auscultation bilaterally and percussion normal EFFORT & INSPECTION: Yes symmetric chest movement AUSCULTATION: clear to auscultation bilaterally PERCUSSION: percussion normal Cardio: COMMON NORMALS: no JVD, regular rate, regular rhythm, S1 normal heart sound present, S2 normal heart sound present, No gallops present (Cardio), No clicks present (Cardio), No murmurs present (Cardio) and No rub (Cardio) RATE: regular rate RHYTHM: regular rhythm HEART SOUNDS: S1 normal heart sound present and S2 normal heart sound present GI: COMMON NORMALS: Normal to inspection, nondistended, normoactive bowel sounds present, Soft to palpation and non-tender PALPATION: Yes Soft to palpation : COMMON NORMALS: Yes no CVA tenderness BLADDER/KIDNEY EXAM: Yes no CVA t enderness Back/Pelvis: COMMON NORMALS: no CVA tenderness Extremity: COMMON NORMALS: normal to inspection, full ROM, no joint enlargement, no clubbing, cyanosis or edema and no calf tenderness NARRATIVE EXTREMITY EXAM: Mild bilateral pedal edema seen Neuro: COMMON NORMALS: patient oriented x3, moves all extremities, no focal motor deficits and no sensory deficits noted SENSORIUM/ORIENTATION: Yes alert GAIT: Yes Normal gait present Psych: COMMON NORMALS: mental status grossly normal APPEARANCE: Yes grossly normal Skin: COMMON NORMALS: no rashes or lesions noted GENERAL SKIN EXAM: no rashes or lesions noted Data 07/05/23 10:49 07/05/23 10:49 A&P Assessment and plan (1) Elevated troponin: Patient has atypical chest pain this is likely type II non-ST elevation ND. In light of her renal insufficiency normal LV function on echocardiogram and currently pain-free we will treat medically continue aspirin nitrate and beta- danae. If her renal function improves or normalized and develops any symptoms then she will be considered for angiogram. Patient currently wants medical therapy. (2) Acute on chronic renal insufficiency: Her creatinine is 1.7 we will repeat her CMP in the morning. (3) Monoclonal gammopathy of unknown significance: With renal insufficiency followed by oncology (4) Diastolic CHF: Relatively stable no acute CHF symptoms except mild chronic pedal edema. (5) Hyperlipidemia: Continue on statin LDL goal less than 70 Coding Level of Care Code Acute Code for Chg Fwd Diagnoses Elevated troponin R79.89 Acute on chronic renal insufficiency N28.9; N18.9 Monoclonal gammopathy of unknown significance D47.2 Diastolic CHF I50.30 Hyperlipidemia E78.5
[2023-07-05 17:16] LABS: Glucose Point of Care 93 mg/dL (70-110)
[2023-07-05 17:57] LABS: Troponin 5 6HR 388.2 ng/L (0-10)
--- NOTE | 2023-07-05 18:59 | PC.NURSE ---
report for transfer to [facility]
[2023-07-05 20:58] LABS: Glucose Point of Care 98 mg/dL (70-110)
[2023-07-06] VITALS (16 sets, daily range): BP systolic 144–179; BP diastolic 74–100; PULSE 76–102; RESP 18–33; TEMP 36.9–37.5; O2SAT 96–100
[2023-07-06] MEDS: sodium chloride 0.9% 1,000 ML 100 ML IV (03:10)
[2023-07-06 03:33] LABS: Basophils % 0.4 %; Eosinophils % 0.8 %; Hematocrit 33.4 % (36-47); Lymphocytes # 0.9 10^3/uL (0.8-4.8); Lymphocytes % 18.4 %; Mean Corpuscular HGB Conc 31.7 g/dL (30-55); Mean Corpuscular Volume 97.7 fl (85-98); Mean Platelet Volume 9.6 fL (7.4-10.4); Monocytes # 0.4 10^3/uL (0.2-0.9); Monocytes % 7.4 %; Neutrophils # 3.44 10^3/uL (1.8-7.7); Neutrophils % 72.8 %; Nucleated Red Blood Cells % 0 %; Platelet Count 213 10^3/cmm (157-399); Red Blood Count 3.42 10^6/uL (3.85-5.65); Red Cell Distribution Width 14.1 % (12.1-15.1); White Blood Count 4.73 10^3/uL (3.29-11.43)
[2023-07-06 03:54] LABS: Anion Gap 12.3 (5-19); Blood Urea Nitrogen 47 mg/dL (8-23); Carbon Dioxide 23 mmol/L (22-29); Chloride 102 mmol/L (98-107); Glucose 88 mg/dL (65-115); Magnesium 2.1 mg/dL (1.7-2.3); Osmolality Calculated 288 mOsm/kg (285-295); Phosphorus 2.9 mg/dL (2.5-4.5); Potassium 4.3 mmol/L (3.5-5.1); Sodium 133 mmol/L (136-145)
[2023-07-06] MEDS: levothyroxine 75 mcg Tablet PO (05:53)
[2023-07-06] MEDS: FUROsemide 40 mg Tablet PO (06:41)
[2023-07-06] MEDS: metoprolol succinate ER (24 HR) 25 mg Tablet PO (06:41)
[2023-07-06] MEDS: allopurinol 100 mg Tablet PO (06:41)
[2023-07-06 06:52] LABS: Glucose Point of Care 85 mg/dL (70-110)
--- NOTE | 2023-07-06 08:37 | PM.PN ---
Subjective Subjective: Patient has pleuritic chest discomfort. Also has pain on palpation. Troponins are trended down. Echo showed normal LV systolic function. Vitals/I&O/Wt Last Vital Signs Temp 99.1 F 07/05/23 23:58 Pulse 76 07/06/23 06:00 Resp 18 07/06/23 04:00 BP 144/74 07/06/23 04:00 Pulse Ox 97 07/06/23 04:00 O2 Del Method Room Air 07/06/23 04:00 07/05/23 07/06/23 07/06/23 22:59 06:59 14:59 Intake Total 590 / 1090 1120 / 2210 Balance 590 / 1090 1120 / 2210 Weight last 48 hrs Weight 170 lb Physical Exam Narrative: GENERAL: Patient is alert, awake and oriented x3. [] NECK: No jugular vein distension. [] HEENT: No cyanosis. No icterus. No pallor. [] HEART: Regular S1 and S2. No murmur, rub or gallop. [] LUNGS: Clear to auscultate bilaterally. [] CENTRAL NERVOUS SYSTEM: Grossly nonfocal. [] EXTREMITIES: Lower extremities with 1+ edema bilaterally. Data 07/06/23 03:10 07/06/23 03:10 A&P Assessment and plan (1) Elevated troponin: (2) Acute on chronic renal insufficiency: (3) Monoclonal gammopathy of unknown significance: (4) Diastolic CHF: (5) Hyperlipidemia: Plan Likely Type 2 NSTEMI. Echo showed normal LV systolic function. Given renal dysfunction, shared decision with patient made to continue medical therapy. Continue aspirin, plavix and beta blockers. Thank you for involving us with care of this patient. We will continue to follow. Please call with questions. Attestations Medical Necessity Statement*: Care expected to cross 2 midnights. Coding Level of Care Code Acute Code for Chg Fwd Diagnoses Elevated troponin R79.89 Acute on chronic renal insufficiency N28.9; N18.9 Monoclonal gammopathy of unknown significance D47.2 Diastolic CHF I50.30 Hyperlipidemia E78.5
--- NOTE | 2023-07-06 10:01 | P.PN_ITS ---
Subjective Subjective: No active chest pain Patient is stating that every time she takes a deep breath she experiences pain that travels across her chest below her sternum from left to right she has no experienced nausea vomiting or diaphoresis Creatinine 1.6 I have asked nurse to place Ureña catheter for accurate measurement of urine output Vitals/I&O/Wt Last Vital Signs Temp 99.1 F 07/05/23 23:58 Pulse 76 07/06/23 09:36 Resp 18 07/06/23 09:36 BP 144/74 07/06/23 04:00 Pulse Ox 100 07/06/23 09:36 O2 Del Method Room Air 07/06/23 09:36 07/05/23 07/06/23 07/06/23 22:59 06:59 14:59 Intake Total 590 / 1090 1120 / 2210 Balance 590 / 1090 1120 / 2210 Weight last 48 hrs Weight 77.111 kg Physical Exam Narrative: Signs of fluid load present GCS 15 Currently on room air Eating breakfast Limited range of motion right shoulder Normotensive Pleasant and cooperative Lower extremity nonpitting edema Patient wearing adult diapers S1, S2 Data 07/06/23 03:10 07/06/23 03:10 A&P Assessment and plan (1) Acute kidney injury superimposed on chronic kidney disease: (2) Elevated troponin: (3) Acute on chronic renal insufficiency: (4) Lymphedema: (5) Hypothyroidism: (6) CKD (chronic kidney disease): (7) Monoclonal gammopathy of unknown significance: (8) Bilateral lower extremity edema: (9) Diastolic CHF: Plan Atypical chest pain Significant troponin elevation As per cardiology we will treat her medically, echo was reviewed yesterday Patient still complaining of pain on deep breathing Afebrile Doing well on room air We will follow-up with Dr. Alex's recommendation Non-STEMI: Likely type II ME? ACS protocol started at the time of admission Cardiology was consulted Acute on chronic kidney disease Cardiorenal in nature Mild improvement noted with diuresis We will put Ureña catheter for accurate urine output Lower extremity edema lymphedema, hypothyroid We will request physical therapy today Patient has had multiple falls at home She has chronic kidney disease with monoclonal gammopathy DNR/DNI Cardiac diet Patient lives alone however does have family who keeps an eye on her, Attestations Medical Necessity Statement*: Continue medical management Diagnoses Acute kidney injury superimposed on chronic kidney disease N17.9; N18.9 Elevated troponin R79.89 Acute on chronic renal insufficiency N28.9; N18.9 Lymphedema I89.0 Hypothyroidism E03.9 CKD (chronic kidney disease) N18.9 Monoclonal gammopathy of unknown significance D47.2 Bilateral lower extremity edema R60.0 Diastolic CHF I50.30
[2023-07-06] MEDS: atorvastatin 40 mg Tablet 80 MG PO (10:07)
[2023-07-06] MEDS: sennosides-docusate Tablet 1 TAB PO (10:07)
[2023-07-06] MEDS: aspirin 81 mg EC Tablet PO (10:08)
[2023-07-06] MEDS: clopidogrel 75 mg Tablet PO (10:08)
[2023-07-06 11:51] LABS: Glucose Point of Care 85 mg/dL (70-110)
[2023-07-06] MEDS: enoxaparin 30 mg/0.3 mL Syringe SUBCUT (17:35)
[2023-07-06 17:37] LABS: Glucose Point of Care 96 mg/dL (70-110)
[2023-07-06 20:28] LABS: Glucose Point of Care 135 mg/dL (70-110)
[2023-07-07] VITALS (11 sets, daily range): BP systolic 129–144; BP diastolic 73–90; PULSE 78–102; RESP 16–92; TEMP 36.3–37.3; O2SAT 92–100
[2023-07-07 05:05] LABS: Anion Gap 15.3 (5-19); Blood Urea Nitrogen 47 mg/dL (8-23); Calcium 9.4 mg/dL (8.5-10.5); Carbon Dioxide 21 mmol/L (22-29); Chloride 103 mmol/L (98-107); Glucose 104 mg/dL (65-115); Osmolality Calculated 293 mOsm/kg (285-295); Potassium 4.3 mmol/L (3.5-5.1); Sodium 135 mmol/L (136-145)
[2023-07-07] MEDS: levothyroxine 75 mcg Tablet PO (05:18)
[2023-07-07] MEDS: FUROsemide 40 mg Tablet PO (06:18)
[2023-07-07] MEDS: allopurinol 100 mg Tablet PO (06:18)
[2023-07-07] MEDS: metoprolol succinate ER (24 HR) 25 mg Tablet PO (06:18)
[2023-07-07 06:28] LABS: Glucose Point of Care 91 mg/dL (70-110)
[2023-07-07] MEDS: aspirin 81 mg EC Tablet PO (08:30)
[2023-07-07] MEDS: atorvastatin 40 mg Tablet 80 MG PO (08:30)
[2023-07-07] MEDS: clopidogrel 75 mg Tablet PO (08:30)
--- NOTE | 2023-07-07 11:08 | PM.PN ---
Subjective Subjective: Patient feeling well. On PO lasix Vitals/I&O/Wt Last Vital Signs Temp 99.2 F 07/07/23 08:00 Pulse 89 07/07/23 08:00 Resp 19 H 07/07/23 08:00 BP 141/73 07/07/23 08:00 Pulse Ox 97 07/07/23 08:00 O2 Del Method Room Air 07/07/23 08:00 07/06/23 07/07/23 07/07/23 22:59 06:59 14:59 Intake Total 120 / 1060 240 / 1300 220 / 220 Output Total 700 / 1550 1200 / 2750 550 / 550 Balance -580 / -490 -960 / -1450 -330 / -330 Physical Exam Narrative: GENERAL: Patient is alert, awake and oriented x3. [] NECK: No jugular vein distension. [] HEENT: No cyanosis. No icterus. No pallor. [] HEART: Regular S1 and S2. No murmur, rub or gallop. [] LUNGS: Clear to auscultate bilaterally. [] CENTRAL NERVOUS SYSTEM: Grossly nonfocal. [] EXTREMITIES: Lower extremities with 1+ edema bilaterally. Urinary Catheter Management: Ureña: Cath Placed During This Visit: yes Reason for Continuing Indwelling Catheter: Acute Urinary Retention or Obstruction Urinary Catheter Date of Insertion: 07/06/23 Urinary Catheter Time of Insertion: 09:00 Data 07/06/23 03:10 07/09/23 04:35 A&P Assessment and plan (1) Elevated troponin: (2) Acute on chronic renal insufficiency: (3) Monoclonal gammopathy of unknown significance: (4) Diastolic CHF: (5) Hyperlipidemia: Plan Continue medical therapy. ECHO not showing regional wall motion abnormalities. Continue aspirin, plavix, statin and PO lasix Thank you for involving us with care of this patient. Please call with questions. Attestations Medical Necessity Statement*: Care expected to cross 2 midnights. Coding Level of Care Code Acute Code for Chg Fwd Diagnoses Elevated troponin R79.89 Acute on chronic renal insufficiency N28.9; N18.9 Monoclonal gammopathy of unknown significance D47.2 Diastolic CHF I50.30 Hyperlipidemia E78.5
[2023-07-07 11:32] LABS: Glucose Point of Care 104 mg/dL (70-110)
--- NOTE | 2023-07-07 12:17 | P.PN_ITS ---
Subjective Subjective: This morning patient was eating breakfast at the time my evaluation Creatinine improving Adequate urine output Ureña catheter has been placed We are looking into rehab/SNF for her Vitals/I&O/Wt Last Vital Signs Temp 99.2 F 07/07/23 08:00 Pulse 89 07/07/23 08:00 Resp 19 H 07/07/23 08:00 BP 141/73 07/07/23 08:00 Pulse Ox 97 07/07/23 08:00 O2 Del Method Room Air 07/07/23 08:00 07/06/23 07/07/23 07/07/23 22:59 06:59 14:59 Intake Total 120 / 1060 240 / 1300 220 / 220 Output Total 700 / 1550 1200 / 2750 550 / 550 Balance -580 / -490 -960 / -1450 -330 / -330 Physical Exam Narrative: S1, S2 Lower extremity edema seems to be improving Skin wrinkling noted Abdomen soft Currently doing well on room air Pleasant and cooperative Eating breakfast S1, S2 Urinary Catheter Management: Ureña: Cath Placed During This Visit: yes Reason for Continuing Indwelling Catheter: Acute Urinary Retention or Obstruction Urinary Catheter Date of Insertion: 07/06/23 Urinary Catheter Time of Insertion: 09:00 Data 07/06/23 03:10 07/07/23 04:12 A&P Assessment and plan (1) Acute kidney injury superimposed on chronic kidney disease: (2) Hyperlipidemia: (3) Elevated troponin: (4) Acute on chronic renal insufficiency: (5) Lymphedema: (6) Hypothyroidism: (7) CKD (chronic kidney disease): (8) Monoclonal gammopathy of unknown significance: (9) Bilateral lower extremity edema: (10) Diastolic CHF: Plan Diastolic CHF exacerbation Patient has been switched to p.o. Lasix Lymphedema, requested physical therapy for compression wraps. Atypical chest pain No wall motion abnormality on echo As per cardiology: Medical management CODE STATUS: DNR/DNI Disposition plan: halfway placement once authorization has been approved Multiple falls at home, related to lymphedema Awaiting placement Attestations Medical Necessity Statement*: Awaiting placement Diagnoses Acute kidney injury superimposed on chronic kidney disease N17.9; N18.9 Hyperlipidemia E78.5 Elevated troponin R79.89 Acute on chronic renal insufficiency N28.9; N18.9 Lymphedema I89.0 Hypothyroidism E03.9 CKD (chronic kidney disease) N18.9 Monoclonal gammopathy of unknown significance D47.2 Bilateral lower extremity edema R60.0 Diastolic CHF I50.30
[2023-07-07 17:10] LABS: Glucose Point of Care 112 mg/dL (70-110)
[2023-07-07] MEDS: enoxaparin 30 mg/0.3 mL Syringe SUBCUT (17:44)
[2023-07-07 20:02] LABS: Glucose Point of Care 149 mg/dL (70-110)
[2023-07-08] VITALS (10 sets, daily range): BP systolic 103–136; BP diastolic 48–90; PULSE 92–110; RESP 16–27; TEMP 36.9–37.6; O2SAT 96–99
[2023-07-08 05:04] LABS: Anion Gap 14.1 (5-19); Blood Urea Nitrogen 52 mg/dL (8-23); Calcium 9.4 mg/dL (8.5-10.5); Carbon Dioxide 21 mmol/L (22-29); Chloride 102 mmol/L (98-107); Glucose 96 mg/dL (65-115); Osmolality Calculated 290 mOsm/kg (285-295); Potassium 4.1 mmol/L (3.5-5.1); Sodium 133 mmol/L (136-145)
[2023-07-08] MEDS: levothyroxine 75 mcg Tablet PO (06:39)
[2023-07-08] MEDS: metoprolol succinate ER (24 HR) 25 mg Tablet PO (06:39)
[2023-07-08] MEDS: FUROsemide 40 mg Tablet PO (06:39)
[2023-07-08] MEDS: allopurinol 100 mg Tablet PO (06:39)
[2023-07-08 07:40] LABS: Glucose Point of Care 94 mg/dL (70-110)
--- NOTE | 2023-07-08 08:50 | PC.SOCIAL ---
IMM Update pg 2 of IMM updated and reviewed w/ patient copy provided and copy dated, initialed and placed in chart.
[2023-07-08] MEDS: atorvastatin 40 mg Tablet 80 MG PO (09:25)
[2023-07-08] MEDS: aspirin 81 mg EC Tablet PO (09:25)
[2023-07-08] MEDS: clopidogrel 75 mg Tablet PO (09:25)
--- NOTE | 2023-07-08 10:16 | PM.PN ---
Subjective Subjective: Creatinine stable Patient doing well Patient was resting comfortably at the time of my evaluation Currently on room air Vitals/I&O/Wt Last Vital Signs Temp 98.5 F 07/08/23 07:31 Pulse 103 H 07/08/23 08:00 Resp 18 07/08/23 08:00 BP 128/90 07/08/23 07:31 Pulse Ox 98 07/08/23 08:00 O2 Del Method Room Air 07/08/23 08:00 07/07/23 07/08/23 07/08/23 22:59 06:59 14:59 Intake Total 460 / 680 360 / 360 Output Total 725 / 1275 550 / 1825 Balance -265 / -595 -550 / -1145 360 / 360 Physical Exam Narrative: Currently on room air Resting comfortably Hemodynamically stable Signs of fluid load improving Both extremities covered with compression wraps GCS 15 Nonfocal neuro exam Urinary Catheter Management: Ureña: Cath Placed During This Visit: yes Reason for Continuing Indwelling Catheter: Accurate Measurement of Urinary Output in Critically Ill Patients Urinary Catheter Date of Insertion: 07/06/23 Urinary Catheter Time of Insertion: 09:00 Data 07/06/23 03:10 07/08/23 04:20 A&P Assessment and plan (1) Acute kidney injury superimposed on chronic kidney disease: (2) Acute on chronic renal insufficiency: (3) Lymphedema: (4) Monoclonal gammopathy of unknown significance: (5) Bilateral lower extremity edema: (6) Diastolic CHF: Plan COLLEEN: Cardiorenal: Improving creatinine 1.5 Non-STEMI: Type II, medical management Recurrent falls started lymphedema, nursing on Awaiting placement Creatinine improving Hemodynamically stable Chest pain improved Attestations Medical Necessity Statement*: Awaiting placement Diagnoses Acute kidney injury superimposed on chronic kidney disease N17.9; N18.9 Acute on chronic renal insufficiency N28.9; N18.9 Lymphedema I89.0 Monoclonal gammopathy of unknown significance D47.2 Bilateral lower extremity edema R60.0 Diastolic CHF I50.30
[2023-07-08 11:28] LABS: Glucose Point of Care 146 mg/dL (70-110)
[2023-07-08] MEDS: insulin lispro 100 unit/1 mL SUBCUT (13:15)
[2023-07-08 17:20] LABS: Glucose Point of Care 104 mg/dL (70-110)
[2023-07-08] MEDS: enoxaparin 30 mg/0.3 mL Syringe SUBCUT (18:18)
[2023-07-08 21:00] LABS: Glucose Point of Care 101 mg/dL (70-110)
[2023-07-09] VITALS (8 sets, daily range): BP systolic 126–138; BP diastolic 71–95; PULSE 76–95; RESP 16–23; TEMP 36.9–37.2; O2SAT 94–100
[2023-07-09 05:24] LABS: Anion Gap 13.9 (5-19); Blood Urea Nitrogen 55 mg/dL (8-23); Calcium 9.5 mg/dL (8.5-10.5); Carbon Dioxide 23 mmol/L (22-29); Chloride 102 mmol/L (98-107); Glucose 94 mg/dL (65-115); Osmolality Calculated 295 mOsm/kg (285-295); Potassium 3.9 mmol/L (3.5-5.1); Sodium 135 mmol/L (136-145)
[2023-07-09 05:25] LABS: Creatinine Clr Calc Pharmacy 22.9899
[2023-07-09] MEDS: levothyroxine 75 mcg Tablet PO (05:37)
[2023-07-09] MEDS: metoprolol succinate ER (24 HR) 25 mg Tablet PO (05:37)
[2023-07-09] MEDS: allopurinol 100 mg Tablet PO (05:37)
[2023-07-09] MEDS: FUROsemide 40 mg Tablet PO (05:37)
[2023-07-09 06:34] LABS: Glucose Point of Care 95 mg/dL (70-110)
--- NOTE | 2023-07-09 08:59 | P.PN_ITS ---
Subjective Subjective: Discontinue Lasix Creatinine 1.7 Patient is endorsing feeling better Clinically euvolemic to dehydrated Patient stating that she is still experiencing chest pain on deep breathing which travels across from right shoulder to left shoulder She is not endorsing any nausea, vomiting or shortness of breath Vitals/I&O/Wt Last Vital Signs Temp 98.5 F 07/09/23 08:00 Pulse 76 07/09/23 08:00 Resp 21 H 07/09/23 08:00 BP 128/72 07/09/23 08:00 Pulse Ox 97 07/09/23 08:00 O2 Del Method Room Air 07/09/23 08:00 07/08/23 07/09/23 07/09/23 22:59 06:59 14:59 Intake Total 240 / 1040 200 / 1240 360 / 360 Output Total 550 / 550 550 / 1100 Balance -310 / 490 -350 / 140 360 / 360 Physical Exam Narrative: Patient eating breakfast Euvolemic Lower extremities covered with compression wraps GCS 15 Pleasant and cooperative Doing well on room air Hemodynamic stable Urinary Catheter Management: Ureña: Cath Placed During This Visit: yes Reason for Continuing Indwelling Catheter: Accurate Measurement of Urinary Output in Critically Ill Patients Urinary Catheter Date of Insertion: 07/06/23 Urinary Catheter Time of Insertion: 09:00 Data 07/06/23 03:10 07/09/23 04:35 A&P Assessment and plan (1) Acute kidney injury superimposed on chronic kidney disease: (2) Hyperlipidemia: (3) Elevated troponin: (4) Acute on chronic renal insufficiency: (5) Lymphedema: (6) Hypothyroidism: (7) Monoclonal gammopathy of unknown significance: (8) Bilateral lower extremity edema: (9) Diastolic CHF: Plan Secondary to recurrent falls patient is requiring [facility] placement Diastolic CHF: Compensated Stop Lasix COLLEEN related to cardiorenal: Hold Lasix today concern for overdiuresis DNR/DNI Type II non-STEMI: Echo showing preserved action fraction PT recommended rehab Plan for coronary angiogram Cardiac diet Attestations Medical Necessity Statement*: Awaiting placement Diagnoses Acute kidney injury superimposed on chronic kidney disease N17.9; N18.9 Hyperlipidemia E78.5 Elevated troponin R79.89 Acute on chronic renal insufficiency N28.9; N18.9 Lymphedema I89.0 Hypothyroidism E03.9 Monoclonal gammopathy of unknown significance D47.2 Bilateral lower extremity edema R60.0 Diastolic CHF I50.30
[2023-07-09] MEDS: atorvastatin 40 mg Tablet 80 MG PO (09:05)
[2023-07-09] MEDS: aspirin 81 mg EC Tablet PO (09:05)
[2023-07-09] MEDS: sennosides-docusate Tablet 1 TAB PO (09:05)
[2023-07-09] MEDS: clopidogrel 75 mg Tablet PO (09:05)
--- NOTE | 2023-07-09 10:47 | PM.DCS ---
Discharge Providers Date of Admission: 07/05/23 13:02 Date of Discharge: July 08, 2023 Attending Provider at Admission: Aileen Vee MD Attending Provider at Discharge: Aileen Vee MD Primary Care Provider: Kavin Quick Diagnoses at Discharge Discharge Diagnosis (1) Acute kidney injury superimposed on chronic kidney disease: Status: Acute (2) Hyperlipidemia: Status: Acute (3) Elevated troponin: Status: Acute (4) Acute on chronic renal insufficiency: Status: Acute (5) Lymphedema: Status: Acute (6) Hypothyroidism: Status: Acute (7) CKD (chronic kidney disease): Status: Acute (8) Monoclonal gammopathy of unknown significance: Status: Acute (9) Bilateral lower extremity edema: Status: Acute (10) Diastolic CHF: Status: Acute Reason for Visit Reason for Visit: CHEST PAIN; RIGHT LEG PAIN S/P FALL Hospital Course Hospital Course Very pleasant 88-year-old female, who lives alone, presented to the hospital for recurrent falls and chest pain. Initially she was diagnosed with non-STEMI, cardiology was consulted who recommended medical management considering her worsening kidney function, patient was complaining of atypical chest pain, she did not have any history of congestive heart failure or VA. She does have lymphedema, hypothyroidism. In the hospital she was diagnosed with diastolic CHF exacerbation, she received diuretics, kidney function improved with diuresis, she did not do well with physical therapy, she will be discharged to detention with stable hemodynamics. Lymphedema likely contributed to her recurrent falls, I have requested physical therapy for compression wraps. Physical Exam Narrative: Pleasant and cooperative Signs of CHF improving Lymphedema of lower extremity S1, S2 Abdomen soft Doing well on room air Urinary Catheter Management: Ureña: Cath Placed During This Visit: yes Reason for Continuing Indwelling Catheter: Accurate Measurement of Urinary Output in Critically Ill Patients Urinary Catheter Date of Insertion: 07/06/23 Urinary Catheter Time of Insertion: 09:00 Discharge Data Studies Completed and Pending Completed Studies During Hospitalization Category Date Time Status CT cervical spin wo con* [id number] Stat Cat Scan 07/05/23 10:[address] head wo con* [id number] Stat Cat Scan 07/05/23 10:55 Completed XR chest 1V portable [id number] Stat Exams 07/05/23 10:37 Completed XR hip RT 2-3V wo/w pel* [id number] Stat Exams 07/05/23 10:54 Completed XR tibia fibula RT 2V [id number] Stat Exams 07/05/23 10:54 Completed XR wrist LT min 3V* [id number] Stat Exams 07/05/23 10:54 Completed CV. echo complete* [id number] Routine Ultrasound 07/05/23 15:57 Completed Radiology Impressions Chest X-Ray 07/05/23 10:37 IMPRESSION: 1. No acute findings. 2. 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 Tibia/Fibula X-Ray 07/05/23 10:54 IMPRESSION: 1. No acute findings. 2. Soft tissue edema lateral ankle Wrist X-Ray 07/05/23 10:54 IMPRESSION: 1. Healing transverse fracture distal shaft of the radius. 2. Dorsal angulation of the distal metaphysis of the radius. 3.Osteoarthritis Cervical Spine CT 07/05/23 10:55 IMPRESSION: No acute cervical fracture is identified. Head CT 07/05/23 10:55 IMPRESSION: 1. No acute intracranial hemorrhage. 2. Advanced small vessel ischemic disease of indeterminate age. 3. Mild parenchymal volume loss. Laboratory Results WBC 4.73 10^3/uL (3.29-11.43) 07/06/23 03:10 RBC 3.42 10^6/uL (3.85-5.65) L 07/06/23 03:10 Hgb 10.60 g/dL (11.27-16.99) L 07/06/23 03:10 Hct 33.4 % (36-47) L 07/06/23 03:10 MCV 97.7 fl (85-98) 07/06/23 03:10 MCH 31.0 pg (27-33) 07/06/23 03:10 MCHC 31.7 g/dL (30-55) 07/06/23 03:10 RDW 14.1 % (12.1-15.1) 07/06/23 03:10 Plt Count 213 10^3/cmm (157-399) 07/06/23 03:10 MPV 9.6 fL (7.4-10.4) 07/06/23 03:10 Neut % (Auto) 72.8 % 07/06/23 03:10 Lymph % (Auto) 18.4 % 07/06/23 03:10 [place] % (Auto) 7.4 % 07/06/23 03:10 Eos % (Auto) 0.8 % 07/06/23 03:10 Baso % (Auto) 0.4 % 07/06/23 03:10 Neut # (Auto) 3.44 10^3/uL (1.8-7.7) 07/06/23 03:10 Lymph # (Auto) 0.9 10^3/uL (0.8-4.8) 07/06/23 03:10 [place] # (Auto) 0.4 10^3/uL (0.2-0.9) 07/06/23 03:10 Eos # (Auto) 0.0 10^3/uL (0.0-0.8) 07/06/23 03:10 Baso # (Auto) 0.0 10^3/uL (0.0-0.1) 07/06/23 03:10 Nucleated RBC % (auto) 0 % 07/06/23 03:10 Nucleated RBCs # 0.0 /100WBC 07/06/23 03:10 Sodium 133 mmol/L (136-145) L 07/08/23 04:20 Potassium 4.1 mmol/L (3.5-5.1) 07/08/23 04:20 Chloride 102 mmol/L (98-107) 07/08/23 04:20 Carbon Dioxide 21 mmol/L (22-29) L 07/08/23 04:20 Anion Gap 14.1 (5-19) 07/08/23 04:20 BUN 52 mg/dL (8-23) H 07/08/23 04:20 Creatinine 1.5 mg/dL (0.5-0.9) H 07/08/23 04:20 GFR Calculation Not Reportable 07/08/23 04:20 Glucose 96 mg/dL (65-115) 07/08/23 04:20 POC Glucose 149 mg/dL (70-110) H 07/07/23 19:59 Calculated Osmolality 290 mOsm/kg (285-295) 07/08/23 04:20 Calcium 9.4 mg/dL (8.5-10.5) 07/08/23 04:20 Phosphorus 2.9 mg/dL (2.5-4.5) 07/06/23 03:10 Magnesium 2.1 mg/dL (1.7-2.3) 07/06/23 03:10 Total Bilirubin 1.1 mg/dL (0.15-1.2) 07/05/23 10:49 AST 27 U/L (0-32) 07/05/23 10:49 ALT 12 U/L (0-33) 07/05/23 10:49 Alkaline Phosphatase 89 U/L (35-105) 07/05/23 10:49 Troponin T Baseline 464 ng/L (0-10) H* 07/05/23 10:49 Troponin T 120 Minute 437.5 ng/L (0-10) H 07/05/23 12:36 Delta Troponin T -26.5 ABS# (0-10) L 07/05/23 12:36 Troponin T Hi Sens 6Hr 388.2 ng/L (0-10) H 07/05/23 16:49 Troponin T Hi Sens 6Hr Delta -75.8 ng/L (0-12) L 07/05/23 16:49 Total Protein 5.5 g/dL (6.6-8.7) L 07/05/23 10:49 Albumin 3.6 g/dL (3.5-5.2) 07/05/23 10:49 Globulin 1.9 g/dL (1.3-4.6) 07/05/23 10:49 Vitals Last Vital Signs Temp 99.6 F 07/08/23 02:42 Pulse 110 H 07/08/23 02:42 Resp 18 07/08/23 02:42 BP 103/48 07/08/23 02:42 Pulse Ox 99 07/08/23 02:42 O2 Del Method Room Air 07/08/23 02:42 Discharge Plan Discharge Patient Disposition: Xfer SNF Condition: Stable Prescriptions: New aspirin 81 mg Tablet,Delayed Release (Dr/Ec) 81 mg PO DAILY Qty: 60 0RF clopidogrel 75 mg Tablet 75 mg PO DAILY Qty: 30 0RF atorvastatin 40 mg Tablet 40 mg PO DAILY Qty: 30 0RF sennosides-docusate sodium [Stool Softener-Laxative] 8.6-50 mg Tablet 1 tab PO DAILY Qty: 30 0RF potassium chloride 10 mEq tablet extended release 10 meq PO DAILY PRN (Reason: Only with Lasix) Qty: 20 0RF Continued cholecalciferol (vitamin D3) 50 mcg (2,000 unit) capsule 50 mcg PO QAM allopurinol 100 mg tablet 100 mg PO QAM levothyroxine 75 mcg tablet 75 mcg PO QAM metoprolol succinate 25 mg tablet extended release 24 hr 25 mg PO QAM Changed furosemide 40 mg tablet 20 mg PO QAM PRN (Reason: weight gain >3lbs ) Qty: 30 0RF Rx Instructions: can take 40mg to 80mg daily Discharge Orders: Discharge Order (Routine); Ordered 07/09/23 Ordered By: Aileen Vee Referrals: Kavin Quick [Primary Care Provider] - 3 weeks Discharge Diet: Cardiac Discharge Activity: Increase activity as tolerated and As per PT/OT instructions Patient Instructions: Heart Failure (DC), CHF Stoplight, Opioid Safety Discharge Attestations Time Spent in Discharge Care*: greater than 30 min Quality Metrics Clinical Quality Measures [ No reported AMI, CVA or VTE this stay] Coding Level of Care Code Acute Code for Chg Fwd Diagnoses Acute kidney injury superimposed on chronic kidney disease N17.9; N18.9 Hyperlipidemia E78.5 Elevated troponin R79.89 Acute on chronic renal insufficiency N28.9; N18.9 Lymphedema I89.0 Hypothyroidism E03.9 CKD (chronic kidney disease) N18.9 Monoclonal gammopathy of unknown significance D47.2 Bilateral lower extremity edema R60.0 Diastolic CHF I50.30
[2023-07-09 11:56] LABS: SARS Covid-2 Antigen negative (Negative)
[2023-07-09] MEDS: lactulose oral liq 20 gm/30 mL UDC PO (12:13)
[2023-07-09 12:26] LABS: Glucose Point of Care 99 mg/dL (70-110)
--- NOTE | 2023-07-09 14:50 | PC.OT ---
PER NURSING; PATIENT IS TO D/C TO SNF TODAY AND THEY DO NOT WANT HER LEGS WRAPPED IN LYMPHEDEMA WRAPS BECAUSE THEY NEED TO BE ABLE TO DO A SKIN ASSESSMENT WHEN SHE ARRIVES AT THE NEW FACILITY.
--- NOTE | 2023-07-09 16:35 | PC.NURSE ---
Discharge Note Patient discharged to [facility] via ambulance accompanied by ambulance personnel. Discharge instructions reviewed with patient and/or inbound call center representative. Mobile pharmacy medications and/or prescriptions provided. Belongings/home medications returned.
== END 2023-07-09 16:37 | disposition skilled nursing facility (03) | DRG 280 ==
LOC: ER 10:46 → ICU 13:47 → CSU 19:19
PROVIDERS: Admitting Provider Internal Medicine; Emergency Provider Family Medicine; PCP Family Medicine; Visit Provider Internal Medicine
DX: I13.0 Hypertensive heart and chronic kidney disease with heart failure and stage 1 through stage 4 chronic kidney disease, or unspecified chronic kidney disease (principal); I50.31 Acute diastolic (congestive) heart failure; I21.A1 Myocardial infarction type 2; N17.9 Acute kidney failure, unspecified; N18.9 Chronic kidney disease, unspecified; Z11.52 Encounter for screening for COVID-19; E03.9 Hypothyroidism, unspecified; I89.0 Lymphedema, not elsewhere classified; M79.604 Pain in right leg; W18.30XA Fall on same level, unspecified, initial encounter; Z86.718 Personal history of other venous thrombosis and embolism; E78.5 Hyperlipidemia, unspecified; D47.2 Monoclonal gammopathy; S52.502D Unspecified fracture of the lower end of left radius, subsequent encounter for closed fracture with routine healing; M19.032 Primary osteoarthritis, left wrist; W19.XXXD Unspecified fall, subsequent encounter; E86.0 Dehydration; Z66 Do not resuscitate
CPT/HCPCS: 36415; 36416; 51702; 70450; 71045; 72125; 73110; 73502; 73590; 80048; 80053; 82962; 83735; 84100; 84484; 85025; 87426; 93005; 93306; 96372; 97110; 97124; 97161; 97167; 97530; 99285; J1650; J1815; J7030; J7040

== ENCOUNTER 2023-12-25 05:42 | Inpatient (IN) | payer MEDICARE, OTHER, SELFPAY ==
[2023-12-25] VITALS (15 sets, daily range): BP systolic 101–147; BP diastolic 60–89; PULSE 66–101; RESP 16–25; TEMP 36.3–37.3; O2SAT 94–100; BMI 25.7; BMI 29.8
--- NOTE | 2023-12-25 05:52 | XRR_ITS ---
PROCEDURE INFORMATION: Exam: XR Chest Exam date and time: 12/25/2023 6:07 AM Age: 88 years old Clinical indication: Shortness of breath TECHNIQUE: Imaging protocol: Radiologic exam of the chest. Views: 1 view. COMPARISON: CR XR chest 1V portable [id number] 07/05/2023 11:26 AM FINDINGS: Lungs: Bibasilar opacity, right greater than left representing atelectasis, infiltrate, and/or effusion. Pleural spaces: Unremarkable. No pleural effusion. No pneumothorax. Heart/Mediastinum: Mild cardiomegaly. Bones/joints: Unremarkable. XR/XR chest 1V [id number] IMPRESSION: Mild bibasilar opacities.
--- NOTE | 2023-12-25 05:52 | ECG_ITS ---
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 Measurements Intervals [place] Rate: 105 P: 0 [place]: 0 QRS: 34 QRSD: 85 T: 32 QT: 251 QTc: 332 Interpretive Statements ATRIAL FIBRILLATION WITH RAPID VENTRICULAR RESPONSE WITH ABERRANT CONDUCTION OR VENTRICULAR PREMATURE COMPLEXES Compared to ECG 07/05/2023 16:19:58 Aberrant conduction of supraventricular beat(s) now present Ventricular premature complex(es) now present Sinus rhythm no longer present Electronically Signed On 12-25-2023 8:34:30 CDT by Lakhwinder Mcneal M.D. [email or web address]/store/NU/[id number] f
--- NOTE | 2023-12-25 05:53 | W.ED.FEVER ---
HPI - Fever General: Chief Complaint: Fever Stated Complaint: CP Time Seen by Provider: 12/25/23 05:51 History of Present Illness: 88-year-old female with a history of gout, DVT (no longer on any anticoagulants), hypertension, hyperlipidemia CHF, chronic kidney disease, hypothyroidism and recent diagnosis of flu (reported diagnosed 8 days ago) who presents to the emergency room this morning with report of fever. Her temp is 99 2 on presentation here. EMS reports that the alf said she had complained of some chest discomfort. She does not remember this and says she has no chest discomfort now. She says she does feel little bit short of breath. Otherwise she has no pain. No focal motor deficits. She has chronic lower extremity swelling appears to be bedbound. No abdominal pain. No nausea or vomiting. She is in atrial fibrillation on presentation and alf reports she does not have a history of this that they know of. Review of Systems Narrative: Constitutional symptoms: Negative except as documented in HPI. Skin symptoms: Negative except as documented in HPI. Eye symptoms: Negative except as documented in HPI. ENMT symptoms: Negative except as documented in HPI. Respiratory symptoms: Negative except as documented in HPI. Cardiovascular symptoms: Negative except as documented in HPI. Gastrointestinal symptoms: Negative except as documented in HPI. Genitourinary symptoms: Negative except as documented in HPI. Musculoskeletal symptoms: Negative except as documented in HPI. Neurologic symptoms: Negative except as documented in HPI. Psychiatric symptoms: Negative except as documented in HPI. Endocrine symptoms: Negative except as documented in HPI. PFSH ED PFSH: Medical History B12 deficiency CKD (chronic kidney disease) History of deep venous thrombosis (DVT) of distal vein of left lower extremity Hyperlipidemia Hypertension Hypothyroidism Lymphedema Monoclonal gammopathy of unknown significance Surgical History History of cholecystectomy 2005 History of colonoscopy 2009 History of surgical removal of skin lesion Neck - 1970 Basal Cell of neck History of tonsillectomy and adenoidectomy 194 Family History Brother Chronic kidney disease (CKD) Other Cancer Diabetes Hyperlipidemia Hypertension Denies family history of CAD (coronary artery disease) Clotting disorder Dementia Psychiatric illness Suicide Anesthesia complication Bleeding disorder Lung disease Stroke Social History Smoking and tobacco/nicotine status: never used tobacco/nicotine Physical Exam Narrative: EXAM NARRATIVE: General: Alert, no acute distress. Skin: Warm, dry. Patient has an old skin tear and bruise on her left shoulder Head: Normocephalic, atraumatic. Neck: Supple, trachea midline. Eye: Extraocular movements are intact. Ears, nose, mouth and throat: mucosa moist. Cardiovascular: Irregularly irregular,, Normal peripheral perfusion. Respiratory: Lungs are clear to auscultation, respirations are non-labored, breath sounds are equal, Symmetrical chest wall expansion. Gastrointestinal: Soft, Nontender, Non distended, Normal bowel sounds. Musculoskeletal: Normal ROM, no deformity. Neurological: Alert, No focal neurological deficit observed. Psychiatric: Cooperative Course Vital Signs: Vital signs: Vital Signs Temperature 99.2 F 12/25/23 05:42 Pulse Rate 97 12/25/23 06:20 Respiratory Rate 20 H 12/25/23 06:20 Blood Pressure 105/74 12/25/23 06:20 Pulse Oximetry 97 12/25/23 06:20 Oxygen Delivery Me thod Room Air 12/25/23 06:20 MDM - Fever Medical Decision Making Medical decision making: Differential diagnosis including but not limited to and based on the above HPI, review of systems and physical exam: In this patient with recent flu diagnosis but over a week ago would have concern for secondary infection/pneumonia. Also would have concern for urinary tract infection. Sepsis. Chest x-ray, EKG (patient is in atrial fibrillation), urinalysis, blood cultures, lactate, CBC, comprehensive metabolic panel were all ordered Orders placed to evaluate differential diagnosis based on the above differential, HPI and physical exam Lab Review: Laboratory results were reviewed and interpreted by myself the emergency room physician. Patient is anemic. Hemoglobin a few months ago was 10. It is 7.2 today. A type and screen was ordered. Patient has some leukocytosis with a white count of 14,000 this is left shifted at 86%. BUN and creatinine are 28 and 1.2 which is slightly lower than June 28 creatinine was 1.2-1.5 and her BUN was around 55. Patient CRP is up 148. Her lactate is 0.6. EKG: atrial fibrillation with controlled rate, No ST-T changes, no ectopy, This was reviewed and interpreted by myself the ER physician. Chest x-ray: Patient has a right lower lobe infiltrate. Stable cardiomegaly. No pneumothorax.. This was reviewed and interpreted by myself the ER physician. Reexamination: Patient relatively unchanged admission. Heart rate remains around 100 and atrial fibrillation. She has no increased work of breathing. Breath sounds are fairly clear. No focal motor deficits. Medical Records I reviewed the patient's medical records. Lab Data 12/25/23 06:05 12/25/23 06:05 Laboratory Results WBC 14.28 10^3/uL (3.29-11.43) H 12/25/23 06:05 RBC 2.39 10^6/uL (3.85-5.65) L 12/25/23 06:05 Hgb 7.20 g/dL (11.27-16.99) L 12/25/23 06:05 Hct 23.3 % (36-47) L 12/25/23 06:05 MCV 97.5 fl (85-98) 12/25/23 06:05 MCH 30.1 pg (27-33) 12/25/23 06:05 MCHC 30.9 g/dL (30-55) 12/25/23 06:05 RDW 17.6 % (12.1-15.1) H 12/25/23 06:05 Plt Count 376 10^3/cmm (157-399) 12/25/23 06:05 MPV 9.2 fL (7.4-10.4) 12/25/23 06:05 Neut % (Auto) 85.8 % 12/25/23 06:05 Lymph % (Auto) 7.7 % 12/25/23 06:05 [place] % (Auto) 5.9 % 12/25/23 06:05 Eos % (Auto) 0.1 % 12/25/23 06:05 Baso % (Auto) 0.1 % 12/25/23 06:05 Neut # (Auto) 12.25 10^3/uL (1.8-7.7) H 12/25/23 06:05 Lymph # (Auto) 1.1 10^3/uL (0.8-4.8) 12/25/23 06:05 [place] # (Auto) 0.8 10^3/uL (0.2-0.9) 12/25/23 06:05 Eos # (Auto) 0.0 10^3/uL (0.0-0.8) 12/25/23 06:05 Baso # (Auto) 0.0 10^3/uL (0.0-0.1) 12/25/23 06:05 Nucleated RBC % (auto) 0 % 12/25/23 06:05 Nucleated RBCs # 0.0 /100WBC 12/25/23 06:05 Sodium 140 mmol/L (136-145) 12/25/23 06:05 Potassium 4.2 mmol/L (3.5-5.1) 12/25/23 06:05 Chloride 112 mmol/L (98-107) H 12/25/23 06:05 Carbon Dioxide 20 mmol/L (22-29) L 12/25/23 06:05 Anion Gap 12.2 (5-19) 12/25/23 06:05 BUN 28 mg/dL (8-23) H 12/25/23 06:05 Creatinine 1.2 mg/dL (0.5-0.9) H 12/25/23 06:05 GFR Calculation Not Reportable 12/25/23 06:05 Glucose 91 mg/dL (65-115) 12/25/23 06:05 Calculated Osmolality 295 mOsm/kg (285-295) 12/25/23 06:05 Lactic Acid 0.6 mmol/L (0.5-2.2) 12/25/23 06:05 Calcium 8.3 mg/dL (8.5-10.5) L 12/25/23 06:05 Total Bilirubin 0.8 mg/dL (0.15-1.2) 12/25/23 06:05 AST 21 U/L (0-32) 12/25/23 06:05 ALT 12 U/L (0-33) 12/25/23 06:05 Alkaline Phosphatase 105 U/L (35-105) 12/25/23 06:05 C-Reactive Protein 148.3 mg/L (0.0-4.9) H 12/25/23 06:05 Total Protein 4.6 g/dL (6.6-8.7) L 12/25/23 06:05 Albumin 1.7 g/dL (3.5-5.2) L 12/25/23 06:05 Globulin 2.9 g/dL (1.3-4.6) 12/25/23 06:05 Urine Color Yellow (Yellow) 12/25/23 06:05 Urine Appearance Clear (CLEAR) 12/25/23 06:05 Urine pH 5 (5-7) 12/25/23 06:05 Ur Specific [place] 1.015 (1.005-1.030) 12/25/23 06:05 Urine Protein 1+ (Negative) H 12/25/23 06:05 Urine Glucose (UA) Norm (Normal) 12/25/23 06:05 Urine Ketones Negative (Negative) 12/25/23 06:05 Urine Blood Neg (Negative) 12/25/23 06:05 Urine Nitrate Negative (Negative) 12/25/23 06:05 Urine Bilirubin Neg (Negative) 12/25/23 06:05 Urine Urobilinogen 1 mg/dL (Negative) H 12/25/23 06:05 Ur Leukocyte Esterase Negative (Negative) 12/25/23 06:05 Urine RBC Rare /hpf (0-2) 12/25/23 06:05 Urine WBC 0-4 /hpf (0-5) H 12/25/23 06:05 Ur Squamous Epith Cells 5-10 /hpf (0-5) H 12/25/23 06:05 Ur Transition Epith Cell 0-4 /hpf 12/25/23 06:05 Calcium Oxalate Crystal Rare /hpf 12/25/23 06:05 Amorphous Sediment Not Reportable 12/25/23 06:05 Urine Bacteria Trace /hpf (NONE) 12/25/23 06:05 Coarse Granular Casts 0-4 /lpf H 12/25/23 06:05 Urine Mucus Trace /hpf 12/25/23 06:05 All radiology interpretation(s) finalized by discharge Other Data Assessment and plan: Pneumonia Sepsis -Patient has infiltrate in the right lower lung, hypertension, fever reported at alf and temp of 99 2 here. She has some leukocytosis. CRP is 140. However lactate is only 0.6. - only giving 1 L normal saline bolus at this time. Patient has quite a bit of swelling in her legs and cardiomegaly. Have concern for fluid overload. Also ordering blood. -Broad-spectrum antibiotics were administered. Zyvox and meropenem. -Sepsis quality measures. -Lactic acid with a reflex was ordered. -Blood cultures were ordered. Atrial fibrillation -Currently rate controlled. No history. Given that she is anemic today started a anticoagulation as of yet. Chronic kidney disease -Renal function is slightly improved from previous admission. Again this might cause some concern that she would be fluid overloaded and further supports not administering full sepsis dose fluids. Anemia -Administering 1 unit of PRBCs. Patient may or may not have had some chest discomfort this morning has some cardiac history so at 7.2 transfusion is appropriate. Chronic diastolic congestive heart failure -Appears patient had a non-STEMI on previous admission so cardiac markers and serial EKGs have been ordered. Per hospitalist. -I discussed the patient with the hospitalist on-call who is admitting the patient. - Discussed findings and plan with patient. Answered any questions. - All laboratory values were reviewed and interpreted personally by myself, the ER physician - All imaging was reviewed and interpreted personally by myself, the ER physician. - Evaluation and treatment of this problem were appropriate in the emergency setting -I spent a total of >35 minutes of critical care time managing the patient, independent of any other practitioner. -The time involved in the performance of separately reportable procedures was not counted towards critical care time. Discharge Plan Discharge Patient Disposition: Admitted As Inpatient Clinical Impression: Sepsis, Pneumonia, Atrial fibrillation, Anemia, Chronic renal insufficiency Condition: Stable Coding Level of Care Code ED Supervisor [employer] for [place] Lopez
[2023-12-25 06:15] LABS: Basophils % 0.1 %; Eosinophils % 0.1 %; Hematocrit 23.3 % (36-47); Lymphocytes # 1.1 10^3/uL (0.8-4.8); Lymphocytes % 7.7 %; Mean Corpuscular HGB Conc 30.9 g/dL (30-55); Mean Corpuscular Hemoglobin 30.1 pg (27-33); Mean Corpuscular Volume 97.5 fl (85-98); Mean Platelet Volume 9.2 fL (7.4-10.4); Monocytes # 0.8 10^3/uL (0.2-0.9); Monocytes % 5.9 %; Neutrophils # 12.25 10^3/uL (1.8-7.7); Neutrophils % 85.8 %; Nucleated Red Blood Cells % 0 %; Platelet Count 376 10^3/cmm (157-399); Red Blood Count 2.39 10^6/uL (3.85-5.65); Red Cell Distribution Width 17.6 % (12.1-15.1); White Blood Count 14.28 10^3/uL (3.29-11.43)
[2023-12-25] MEDS: sodium chloride 0.9% 1,000 ML 999 ML IV (06:18)
[2023-12-25 06:33] LABS: Alanine Aminotransferase 12 U/L (0-33); Albumin Level 1.7 g/dL (3.5-5.2); Alkaline Phosphatase 105 U/L (35-105); Anion Gap 12.2 (5-19); Aspartate Amino Transferase 21 U/L (0-32); Blood Urea Nitrogen 28 mg/dL (8-23); C Reactive Protein 148.3 mg/L (0.0-4.9); Calcium 8.3 mg/dL (8.5-10.5); Carbon Dioxide 20 mmol/L (22-29); Chloride 112 mmol/L (98-107); Creatinine Clr Calc Pharmacy 30.7127; Globulin 2.9 g/dL (1.3-4.6); Glucose 91 mg/dL (65-115); Osmolality Calculated 295 mOsm/kg (285-295); Potassium 4.2 mmol/L (3.5-5.1); Sodium 140 mmol/L (136-145); Total Bilirubin 0.8 mg/dL (0.15-1.2); Total Protein 4.6 g/dL (6.6-8.7)
[2023-12-25 06:34] LABS: Lactic Sepsis W/Reflex 0.6 mmol/L (0.5-2.2)
[2023-12-25 06:47] LABS: Add Urine Culture? No; Bacteria Urine TRACE /hpf; Bilirubin Urine Neg (Negative); Blood Urine Neg (Negative); Calcium Oxalate Crystals Urine RARE /hpf; Coarse Granular Casts Urine 0-4 /lpf; Glucose Urine UA Norm (Normal); Ketones Urine Negative (Negative); Leukocyte Esterase Urine Negative (Negative); Mucus Urine TRACE /hpf; Nitrate Urine Negative (Negative); Protein Urine 1+ (Negative); RBC Urine RARE /hpf (0-2); Specific Gravity, Urine 1.015 (1.005-1.030); Transitional Epi Cells Urine 0-4 /hpf; Urine Appearance Clear (CLEAR); Urine Color Yellow (Yellow); Urobilinogen Urine 1 mg/dL (Negative); WBC Urine 0-4 /hpf (0-5); pH Urine 5 (5-7)
[2023-12-25] MEDS: meropenem 500 MG in sodium chloride 0.9% (plus) 50 ML 100 MG IV (07:15)
--- NOTE | 2023-12-25 07:16 | ECG_ITS ---
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 Measurements Intervals [place] Rate: 92 P: 79 [place]: 151 QRS: 47 QRSD: 88 T: 53 QT: 373 QTc: 462 Interpretive Statements SINUS RHYTHM WITH OCCASIONAL SUPRAVENTRICULAR PREMATURE COMPLEXES Compared to ECG 12/25/2023 05:48:37 Atrial fibrillation no longer present Aberrant conduction of supraventricular beat(s) no longer present Ventricular premature complex(es) no longer present Electronically Signed On 12-25-2023 8:34:19 CDT by Lakhwinder Mcneal M.D. [email or web address] [email or web address] hospital - [email or web address]/OM/[id number]
[2023-12-25] MEDS: pantoprazole 40 mg SDV 80 MG IVP (07:26)
[2023-12-25 07:29] LABS: NT Pro B Type Natriuretic Pept 9466 pg/mL (0-450)
--- NOTE | 2023-12-25 07:45 | PC.PHAR ---
[phone]-per mis álvarez states the pt finished doxycycline hyclate 100mg bid on 12/21/23 ext shows last filled 12/14/23 10d/s-states the pt finished tamiflu on 12/22/23 ext shows last filled 12/17/23 5d/s-mis states the plavix was dced last month-
[2023-12-25 07:48] LABS: Troponin(5th) Baseline 105 ng/L (0-10)
[2023-12-25 07:54] LABS: Influenza A by IFA negative (Negative); Influenza B by IFA negative (Negative)
--- NOTE | 2023-12-25 07:59 | PC.NURSE ---
ABX LATE DUE TO NEED FOR BLOOD CULTURES.
--- NOTE | 2023-12-25 08:25 | P.HP_ITS ---
Providers/Chief Complaint 2 Admitting Physician: Ariel Benítez MD, hospitalist Primary Care Provider: Kavin Quick Chief Complaint: CP History of Present Illness Tonia Potts is a 88 year old female presenting to the emergency department from the senior living with concerns of fever, recent flu, concern of chest discomfort. Patient's interaction with me is that she is encephalopathic, and does not have any active complaints when awakened but also cannot recognize daughter in room which she usually can. Review of Systems 2 General: Reports: ROS unobtainable due to medical condition Medications/Allergies Home Medications Medication Instructions Recorded Confirmed Last Taken Type cholecalciferol (vitamin D3) 50 50 mcg PO DAILY@09/16/21 12/25/23 07/04/23 History mcg (2,000 unit) capsule allopurinol 100 mg tablet 100 mg PO DAILY@01/19/23 12/25/23 07/04/23 History levothyroxine 75 mcg tablet 75 mcg PO QAM 07/05/23 12/25/23 07/04/23 History potassium chloride 10 mEq 10 meq PO DAILY PRN Only with 07/09/23 12/25/23 Unknown Rx tablet,extended release Lasix #20 tabs acetaminophen 325 mg tablet 650 mg PO Q6H PRN Pain 12/25/23 12/25/23 Unknown History (Tylenol) aspirin 81 mg tablet,delayed 81 mg PO DAILY@12/25/23 12/25/23 Unknown History release atorvastatin 40 mg tablet 40 mg PO DAILY@12/25/23 12/25/23 Unknown History bisacodyl 10 mg rectal suppository 10 mg MN DAILY PRN Constipation 12/25/23 12/25/23 Unknown History (Dulcolax (bisacodyl)) famotidine 20 mg tablet 20 mg PO DAILY 12/25/23 12/25/23 Unknown History furosemide 20 mg tablet (Lasix) 20 mg PO DAILY PRN Edema 12/25/23 12/25/23 Unknown History magnesium hydroxide 400 mg/5 mL 30 ml PO DAILY PRN Constipation 12/25/23 12/25/23 Unknown History oral suspension (Milk of Magnesia) naloxone 2 mg/2 mL syringe kit See Rx Instructions .Route .COMPLEX 12/25/23 12/25/23 Unknown History polyethylene glycol 3350 17 gram 17 g PO DAILY 12/25/23 12/25/23 Unknown History oral powder packet (Miralax) vit no.95-ferrous 1 tab PO DAILY@07 12/25/23 12/25/23 Unknown History fumarate 28 mg-folic acid 800 mcg tablet ( Multivitamins) Allergies Allergy/AdvReac Type Severity Reaction Status Date / Time Penicillins Allergy Unknown unkown Verified 12/25/23 07:39 Sulfa (Sulfonamide Allergy Unknown unkown Verified 12/25/23 07:39 Antibiotics) PFSH Acute 2 PFSH: Medical History Acute kidney injury superimposed on chronic kidney disease Acute on chronic renal insufficiency Elevated troponin History of deep venous thrombosis (DVT) of distal vein of left lower extremity B12 deficiency Hypertension Hyperlipidemia Monoclonal gammopathy of unknown significance Bilateral lower extremity edema Hypothyroidism CKD (chronic kidney disease) Diastolic CHF Lymphedema Surgical History History of tonsillectomy and adenoidectomy 194 History of cholecystectomy 2005 History of surgical removal of skin lesion Neck - 1969 Basal Cell of neck History of colonoscopy 2009 Family History Brother Chronic kidney disease (CKD) Other Cancer Diabetes Hyperlipidemia Hypertension Denies family history of CAD (coronary artery disease) Clotting disorder Dementia Psychiatric illness Suicide Anesthesia complication Bleeding disorder Lung disease Stroke Social History Smoking and tobacco/nicotine status: never used tobacco/nicotine Vitals/I&O/Wt Last Vital Signs Temp 99.2 F 12/25/23 05:42 Pulse 97 12/25/23 06:20 Resp 20 H 12/25/23 06:20 BP 105/74 12/25/23 06:20 Pulse Ox 97 12/25/23 06:20 O2 Del Method Room Air 12/25/23 06:20 Weight last 48 hrs Weight 68.039 kg Physical Exam 2 Narrative: General exam is white female, frequently falling asleep, and when awakens seems confused HEENT: Pupils equally round. Oropharynx is dry Neck is supple no lymphadenopathy thyromegaly Cardiovascular irregular, irregular without murmur Lungs clear no wheezing or crackles. Diminished breath sounds are noted on the right Abdomen is soft nontender with positive bowel sounds. Umbilical hernia is noted which is easily reducible demonstrates Ureña Extremities show at least 1+ edema. Dressings are present on shins Skin no rash Neuro: Confused but no focal deficits Data 12/25/23 06:05 12/25/23 06:05 Other Labs: LFTs are normal Calcium 8.3 with albumin of 1.7 BNP 9466 CRP 148 Troponin baseline 105 Urinalysis 5-10 squamous, 0-4 whites Influenza negative, coronavirus pending Chest x-ray which I reviewed demonstrates right lung pneumonia by my read. Echo of June 2023 demonstrates EF of 55%, grade 1 diastolic dysfunction EKG done today demonstrates sinus rhythm, normal axis, frequent PACs by my read Micro: Microbiology 12/25/23 06:50 Blood Culture - Preliminary Blood SPECIMEN COLLECTED 12/25/23 06:05 Blood Culture - Preliminary Blood SPECIMEN COLLECTED A&P Assessment and plan (1) Pneumonia: Patient appears to have significant pneumonia She recently had influenza at the nursing facility, 1 week ago and had Tamiflu. Secondary to concern for aspiration will involve speech therapy N.p.o. for now IV antibiotics consisting of vancomycin and meropenem, she is allergic to penicillin Sputum culture COVID antigen MRSA PCR Blood cultures (2) Acute encephalopathy: Appears to have some mild increase of confusion/encephalopathy associate with pneumonia consistent with acute metabolic encephalopathy. No need for CT scan currently. Monitor for improvement. (3) Anemia: Significant anemia. Her last hospital stay she was treated for non-ST elevation myocardial infarction with addition of Plavix and aspirin Hold anticoagulants and antiplatelets Transfuse 1 unit of packed red blood cells next close follow-up hemoglobin Iron studies, B12 folate, stool Hemoccult Protonix 80 mg IV x 1 in the ER and then 40 mg IV twice daily No intention of further evaluation currently with EGD or colonoscopy after visiting with the family. They do want medical treatment but not invasive procedures. (4) Chronic renal insufficiency: Appears to be stable currently Avoid renal toxic medications She is getting a unit of blood. She is also had some IV fluids in the emergency department. Would not give further IV fluids secondary to her peripheral edema, severely low albumin. I would rather she orally hydrate/eat if appropriate with speech therapy. (5) Failure to thrive: I have concern with recommendations physical appearance that is consistent with failure to thrive. I suspect she has not been eating well. Her albumin is very low. I discussed with the family this usually portends a poor prognosis. Plan History of MGUS Past history of DVT, not on anticoagulation Pressure ulcers lower ext[facility] right arm. Multiple other medical problems as outlined in past medical history allow natural SCDs for DVT prophylaxis, anticoagulation contraindicated With anemia Attestations 2 Medical Necessity Statement*: Will need greater than 2 midnight stay for evaluation and treatment of pneumonia, fever, encephalopathy, anemia Diagnoses Pneumonia J18.9 Acute encephalopathy G93.40 Anemia D64.9 Chronic renal insufficiency N18.9 Failure to thrive Time Spent (min) 54
[2023-12-25] MEDS: linezolid premix 600 MG/300 ML PREMIX 300 MG IV (08:48)
[2023-12-25 09:12] LABS: Ferritin 605 ng/mL (15-150); Iron 10 ug/dL (37-145); Percent Saturation 13.6 % (20-50); Thyroid Stimulating Hormone 3.23 uIU/mL (0.27-4.20); Total Iron Binding Capacity 73 mcg/dl; Unsaturated Iron Binding 63 ug/dL (112-347); Vitamin B12 377 pg/mL (232-1245)
[2023-12-25 09:23] LABS: Adenovirus Not Detected (NOT DETECT); Chlamydia Pneumoniae Not Detected (NOT DETECT); Coronavirus 229E,HKU1,NL63,OC4 Not Detected (NOT DETECT); Human Metapneumovirus Not Detected (NOT DETECT); Human Rhinovirus/Enterovirus Not Detected (NOT DETECT); Influenza A Not Detected (NOT DETECT); Influenza A H1 Not Detected (NOT DETECT); Influenza A H1-2009 Not Detected (NOT DETECT); Influenza A H3 Not Detected (NOT DETECT); Influenza B Not Detected (NOT DETECT); Mycoplasma Pneumoniae Not Detected (NOT DETECT); Parainfluenza Virus Type 1 Not Detected (NOT DETECT); Parainfluenza Virus Type 2 Not Detected (NOT DETECT); Parainfluenza Virus Type 3 Not Detected (NOT DETECT); Parainfluenza Virus Type 4 Not Detected (NOT DETECT); Respiratory Syncytial Virus A Not Detected (NOT DETECT); Respiratory Syncytial Virus B Not Detected (NOT DETECT); SARS-COV-2 Not Detected (NOT DETECT)
--- NOTE | 2023-12-25 09:23 | ECG_ITS ---
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 Measurements Intervals [place] Rate: 82 P: 0 DC: 0 QRS: 21 QRSD: 86 T: 38 QT: 367 QTc: 430 Interpretive Statements SINUS RHYTHM WITH FREQUENT PACs Electronically Signed On 12-25-2023 12:35:45 CDT by Lakhwinder Mcneal M.D. [id number]
[2023-12-25] MEDS: meropenem 1,000 MG in sodium chloride 0.9% (plus) 50 ML 100 MG IV ×2 (09:55→21:24)
[2023-12-25] MEDS: vancomycin 1,000 MG in sodium chloride 0.9% 250 ML 250 MG IV (10:30)
--- NOTE | 2023-12-25 13:16 | ECG_ITS ---
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 Measurements Intervals [place] Rate: 75 P: 0 UT: 0 QRS: 4 QRSD: 88 T: 31 QT: 403 QTc: 453 Interpretive Statements SINUS RHYTHM WITH PACs Electronically Signed On 12-25-2023 22:54:30 CDT by Lakhwinder Mcneal M.D. [id number]
[2023-12-25 14:07] LABS: Hematocrit 26.4 % (36-47)
--- NOTE | 2023-12-25 16:13 | PC.SLP ---
EDUCATION DEPARTMENT REGISTRAR attempted to see the pt, however, nursing staff was working with the pt. EDUCATION DEPARTMENT REGISTRAR will attempt assessment tomorrow.
--- NOTE | 2023-12-25 17:03 | XRR_ITS ---
PROCEDURE INFORMATION: Exam: XR Right Tibia and Fibula Exam date and time: 12/25/2023 6:09 PM Age: 88 years old Clinical indication: Pain; Right; Patient HX: Ulcerative wounds to posterior RT lower leg TECHNIQUE: Imaging protocol: Radiologic exam of the right tibia and fibula. Views: 2 views. COMPARISON: CR (LOW EXM, ) 07/05/2023 11:26 AM FINDINGS: Bones/joints: There is advanced osteoarthritis of the right knee with severe narrowing of lateral compartment with [id number] contact and remodeling of the lateral femoral condyle and lateral tibial plateau with prominent osteophyte formation. Bones are moderately osteopenic. There is no fracture or dislocation. There is a prominent plantar calcaneal spur. Soft tissues: There are defects in the posterior soft tissues of the distal calf consistent with a history of ulcerative wounds. Vasculature: Atherosclerotic calcifications are present in regional vessels. XR/XR tibia fibula RT 2V [id number] IMPRESSION: 1. 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 No acute fracture or bony destructive lesion is demonstrated. 2. Soft tissue ulcers posterior calf.
[2023-12-25] MEDS: FUROsemide 10 mg/mL SDV 4mL 40 MG IVP (17:33)
[2023-12-25 17:39] LABS: Folate Level > 20.0 ng/mL (4.8-37.3)
[2023-12-25] MEDS: atorvastatin 40 mg Tablet PO (21:24)
[2023-12-25] MEDS: pantoprazole 40 mg SDV IVP (21:24)
[2023-12-26] VITALS (8 sets, daily range): BP systolic 104–149; BP diastolic 72–95; PULSE 79–109; RESP 17–22; TEMP 36.2–36.9; O2SAT 91–99
[2023-12-26 03:14] LABS: Basophils % 0.1 %; Eosinophils # 0.1 10^3/uL (0.0-0.8); Eosinophils % 0.6 %; Hematocrit 29.8 % (36-47); Lymphocytes # 1.1 10^3/uL (0.8-4.8); Lymphocytes % 7.3 %; Mean Corpuscular HGB Conc 31.5 g/dL (30-55); Mean Corpuscular Volume 95.2 fl (85-98); Mean Platelet Volume 9.1 fL (7.4-10.4); Monocytes # 0.8 10^3/uL (0.2-0.9); Monocytes % 5.1 %; Neutrophils # 12.76 10^3/uL (1.8-7.7); Neutrophils % 86.3 %; Nucleated Red Blood Cells % 0 %; Platelet Count 399 10^3/cmm (157-399); Red Blood Count 3.13 10^6/uL (3.85-5.65); Red Cell Distribution Width 19.9 % (12.1-15.1)
[2023-12-26 03:29] LABS: Alanine Aminotransferase 8 U/L (0-33); Albumin Level 1.9 g/dL (3.5-5.2); Alkaline Phosphatase 109 U/L (35-105); Anion Gap 11.2 (5-19); Aspartate Amino Transferase 20 U/L (0-32); Blood Urea Nitrogen 26 mg/dL (8-23); Calcium 8.6 mg/dL (8.5-10.5); Carbon Dioxide 23 mmol/L (22-29); Chloride 112 mmol/L (98-107); Creatinine Clr Calc Pharmacy 32.9403; Globulin 2.8 g/dL (1.3-4.6); Glucose 78 mg/dL (65-115); Magnesium 1.8 mg/dL (1.7-2.3); Osmolality Calculated 298 mOsm/kg (285-295); Potassium 4.2 mmol/L (3.5-5.1); Sodium 142 mmol/L (136-145); Total Bilirubin 0.6 mg/dL (0.15-1.2); Total Protein 4.7 g/dL (6.6-8.7)
[2023-12-26] MEDS: allopurinol 100 mg Tablet PO (06:19)
[2023-12-26] MEDS: levothyroxine 75 mcg Tablet PO (06:19)
[2023-12-26] MEDS: meropenem 1,000 MG in sodium chloride 0.9% (plus) 50 ML 100 MG IV (08:55)
[2023-12-26] MEDS: vancomycin 1,000 MG in sodium chloride 0.9% 250 ML 250 MG IV (09:40)
[2023-12-26] MEDS: pantoprazole 40 mg SDV IVP ×2 (10:45→21:00)
--- NOTE | 2023-12-26 12:37 | P.PN_ITS ---
Subjective 2 Subjective: seen this morning daughter and on at bedside pt states she is not in any pain she knows shes in hospital knows her name and does not know president or year she says i dont know pt is bedbound at baseline. family states she cannot stand has been declining in last few weeks has not been eating very much Vitals/I&O/Wt Last Vital Signs Temp 97.2 F L 12/26/23 12:00 Pulse 87 12/26/23 12:00 Resp 18 12/26/23 12:00 BP 148/95 12/26/23 12:00 Pulse Ox 95 12/26/23 12:00 O2 Del Method Room Air 12/25/23 16:00 12/25/23 12/26/23 12/26/23 22:59 06:59 14:59 Intake Total 2049 300 / 300 Balance 2049 300 / 300 Weight last 48 hrs Weight 74.525 kg Weight 78.925 kg Weight 68.039 kg Physical Exam 2 Narrative: General exam is white female, wakes up and talks but not oriented to time. HEENT: Pupils equally round. Oropharynx is dry Cardiovascular irregular, irregular without murmur Lungs clear no wheezing or crackles. Diminished breath sounds are noted on the right Abdomen is soft nontender with positive bowel sounds. Umbilical hernia is noted which is easily reducible demonstrates Ureña Extremities show at least 1+ edema. Dressings are present on shins Skin no rash Neuro: Confused but no focal deficits Data 12/26/23 02:44 12/26/23 02:44 Micro: Microbiology 12/25/23 06:50 Blood Culture - Preliminary Blood NEGATIVE TO DATE 12/25/23 06:05 Blood Culture - Preliminary Blood NEGATIVE TO DATE 12/25/23 19:49 Occult Blood (FIT) - Final Stool Routine Collection A&P Assessment and plan (1) Pneumonia: Patient appears to have significant pneumonia She recently had influenza at the nursing facility, 1 week ago and had Tamiflu. Secondary to concern for aspiration will involve speech therapy N.p.o. for now IV antibiotics consisting of vancomycin and meropenem, she is allergic to penicillin Sputum culture COVID antigen MRSA PCR Blood cultures (2) Acute encephalopathy: Appears to have some mild increase of confusion/encephalopathy associate with pneumonia consistent with acute metabolic encephalopathy. No need for CT scan currently. Monitor for improvement. (3) Anemia: Significant anemia. Her last hospital stay she was treated for non-ST elevation myocardial infarction with addition of Plavix and aspirin Hold anticoagulants and antiplatelets Transfuse 1 unit of packed red blood cells next close follow-up hemoglobin Iron studies, B12 folate, stool Hemoccult Protonix 80 mg IV x 1 in the ER and then 40 mg IV twice daily No intention of further evaluation currently with EGD or colonoscopy after visiting with the family. They do want medical treatment but not invasive procedures. (4) Chronic renal insufficiency: Appears to be stable currently Avoid renal toxic medications She is getting a unit of blood. She is also had some IV fluids in the emergency department. Would not give further IV fluids secondary to her peripheral edema, severely low albumin. I would rather she orally hydrate/eat if appropriate with speech therapy. (5) Failure to thrive: I have concern with recommendations physical appearance that is consistent with failure to thrive. I suspect she has not been eating well. Her albumin is very low. I discussed with the family this usually portends a poor prognosis. Plan History of MGUS Past history of DVT, not on anticoagulation Pressure ulcers lower ext[facility] right arm. Multiple other medical problems as outlined in past medical history allow natural SCDs for DVT prophylaxis, anticoagulation contraindicated With anemia #Failure to thrive #History of MGUS #Past history of DVT, not on anticoagulation #Pressure ulcers bilateral lower extremities, history of cellulitis #CKD #Acute on chronic anemia #Metabolic encephalopathy #Bilateral bibasilar pneumonia, most likely secondary to aspiration? Today's plan 12/26/2023 ? Had a long discussion with family that patient has a poor prognosis. Family endorses that she has been declining in the last few weeks. She has stopped eating. She does not even eat her favorite foods. There is a strong suspicion that patient may be aspirating. Mild bibasilar opacities on x-ray. Continue patient on meropenem and vancomycin at this time. Patient is allergic to penicillin ? Sputum culture pending ? COVID antigen negative Blood cultures pending ? Most likely has metabolic encephalopathy secondary to confusion. She is able to talk to me this morning seems more alert. ? Patient aspirin Plavix 78 she was treated for NSTEMI in the last hospital stay. ? Discussed with family that she will not be a candidate for any further invasive cardiac workup secondary to her not being able to. Family does not want to pursue endoscopy or colonoscopy they would like to avoid invasive procedures. ? Avoid renal toxic medications. ? Patient is status post 1 unit packed RBC. ? Does have generalized anasarca especially in lower extremities. Has severely low albumin. ? Discussed with family that this is due to poor nutrition ? Speech swallow evaluation ordered. ? No pharmacological DVT prophylaxis -I did discuss with family if patient continues to have poor nutritional status feeding tube may be considered versus hospice. Patient does have a history of dementia from what they tell me and she has good days and bad days. ? We will observe patient on antibiotics Next 24 to 48 hours. Will see how she does with speech evaluation today. DNR/DNI Attestations 2 Medical Necessity Statement*: Requires continued hospitalization for management of pneumonia, metabolic encephalopathy, failure to thrive. Diagnoses Pneumonia J18.9 Acute encephalopathy G93.40 Anemia D64.9 Chronic renal insufficiency N18.9 Failure to thrive
[2023-12-26] MEDS: meropenem 1,000 MG in sodium chloride 0.9% (plus) 50 ML 1 MG IV (20:59)
[2023-12-26] MEDS: atorvastatin 40 mg Tablet PO (20:59)
[2023-12-27] VITALS (93 sets, daily range): BP systolic 111–141; BP diastolic 75–92; PULSE 91–135; RESP 16–34; TEMP 36.3–37.3; O2SAT 86–97
[2023-12-27] MEDS: guaiFENesin-dextromethorphan UDC 10 mL 5 ML PO ×2 (00:59→05:59)
[2023-12-27 02:44] LABS: Basophils % 0.3 %; Eosinophils # 0.1 10^3/uL (0.0-0.8); Eosinophils % 0.7 %; Hematocrit 32.9 % (36-47); Lymphocytes % 7.2 %; Mean Corpuscular Hemoglobin 29.6 pg (27-33); Mean Corpuscular Volume 95.4 fl (85-98); Mean Platelet Volume 9.4 fL (7.4-10.4); Monocytes # 0.8 10^3/uL (0.2-0.9); Monocytes % 5.7 %; Neutrophils # 11.37 10^3/uL (1.8-7.7); Neutrophils % 85.6 %; Nucleated Red Blood Cells % 0 %; Platelet Count 465 10^3/cmm (157-399); Red Blood Count 3.45 10^6/uL (3.85-5.65); Red Cell Distribution Width 19.1 % (12.1-15.1); White Blood Count 13.26 10^3/uL (3.29-11.43)
[2023-12-27 03:11] LABS: Alanine Aminotransferase 9 U/L (0-33); Albumin Level 1.8 g/dL (3.5-5.2); Alkaline Phosphatase 136 U/L (35-105); Anion Gap 15.7 (5-19); Aspartate Amino Transferase 20 U/L (0-32); Blood Urea Nitrogen 25 mg/dL (8-23); Calcium 8.7 mg/dL (8.5-10.5); Carbon Dioxide 20 mmol/L (22-29); Chloride 112 mmol/L (98-107); Creatinine Clr Calc Pharmacy 27.4628; Globulin 3.2 g/dL (1.3-4.6); Glucose 57 mg/dL (65-115); Magnesium 1.8 mg/dL (1.7-2.3); Osmolality Calculated 300 mOsm/kg (285-295); Phosphorus 3.3 mg/dL (2.5-4.5); Potassium 3.7 mmol/L (3.5-5.1); Sodium 144 mmol/L (136-145); Total Bilirubin 0.5 mg/dL (0.15-1.2)
[2023-12-27] MEDS: allopurinol 100 mg Tablet PO (05:59)
[2023-12-27] MEDS: levothyroxine 75 mcg Tablet PO (06:00)
[2023-12-27] MEDS: pantoprazole 40 mg SDV IVP ×2 (08:59→20:13)
[2023-12-27] MEDS: meropenem 1,000 MG in sodium chloride 0.9% (plus) 50 ML 100 MG IV ×2 (09:00→20:12)
[2023-12-27] MEDS: vancomycin 1,000 MG in sodium chloride 0.9% 250 ML 250 MG IV (09:59)
--- NOTE | 2023-12-27 10:04 | P.PN_ITS ---
Subjective 2 Subjective: seen this morning had 2 BM overnight cr 1.4 this morning albumin 1.8 Awake alert oriented this morning. Oriented to self however. Overnight blood sugar 57. Patient is asymptomatic however. Much more alert today compared to yesterday. Vitals/I&O/Wt Last Vital Signs Temp 97.7 F 12/27/23 07:40 Pulse 98 12/27/23 07:40 Resp 20 H 12/27/23 07:40 BP 111/82 12/27/23 07:40 Pulse Ox 93 12/27/23 07:40 O2 Del Method Room Air 12/27/23 07:40 12/26/23 12/27/23 12/27/23 22:59 06:59 14:59 Intake Total 50 / 350 50 / 50 Output Total 3 / 3 Balance 47 / 347 50 / 50 Weight last 48 hrs Weight 73.527 kg Weight 74.525 kg Weight 78.925 kg Physical Exam 2 Narrative: General exam is white female, wakes up and talks but not oriented to time. HEENT: Pupils equally round. Oropharynx is dry Cardiovascular irregular, irregular without murmur Lungs clear no wheezing or crackles. Diminished breath sounds are noted on the right Abdomen is soft nontender with positive bowel sounds. Umbilical hernia is noted which is easily reducible demonstrates Ureña Extremities show at least 1+ edema. Dressings are present on shins Skin no rash Neuro: Confused but no focal deficits Data 12/27/23 01:50 12/27/23 01:50 Micro: Microbiology 12/25/23 06:50 Blood Culture - Preliminary Blood NEGATIVE TO DATE 12/25/23 06:05 Blood Culture - Preliminary Blood NEGATIVE TO DATE A&P Assessment and plan (1) Pneumonia: Patient appears to have significant pneumonia She recently had influenza at the nursing facility, 1 week ago and had Tamiflu. Secondary to concern for aspiration will involve speech therapy N.p.o. for now IV antibiotics consisting of vancomycin and meropenem, she is allergic to penicillin Sputum culture COVID antigen MRSA PCR Blood cultures (2) Acute encephalopathy: Appears to have some mild increase of confusion/encephalopathy associate with pneumonia consistent with acute metabolic encephalopathy. No need for CT scan currently. Monitor for improvement. (3) Anemia: Significant anemia. Her last hospital stay she was treated for non-ST elevation myocardial infarction with addition of Plavix and aspirin Hold anticoagulants and antiplatelets Transfuse 1 unit of packed red blood cells next close follow-up hemoglobin Iron studies, B12 folate, stool Hemoccult Protonix 80 mg IV x 1 in the ER and then 40 mg IV twice daily No intention of further evaluation currently with EGD or colonoscopy after visiting with the family. They do want medical treatment but not invasive procedures. (4) Chronic renal insufficiency: Appears to be stable currently Avoid renal toxic medications She is getting a unit of blood. She is also had some IV fluids in the emergency department. Would not give further IV fluids secondary to her peripheral edema, severely low albumin. I would rather she orally hydrate/eat if appropriate with speech therapy. (5) Failure to thrive: I have concern with recommendations physical appearance that is consistent with failure to thrive. I suspect she has not been eating well. Her albumin is very low. I discussed with the family this usually portends a poor prognosis. Plan History of MGUS Past history of DVT, not on anticoagulation Pressure ulcers lower ext[facility] for cellulitis right arm. Multiple other medical problems as outlined in past medical history allow natural SCDs for DVT prophylaxis, anticoagulation contraindicated With anemia #Failure to thrive #History of MGUS #Past history of DVT, not on anticoagulation #Pressure ulcers bilateral lower extremities, history of cellulitis #CKD #Acute on chronic anemia #Metabolic encephalopathy #Bilateral bibasilar pneumonia, most likely secondary to aspiration? Today's plan 12/27/2023 ? Had a long discussion with family that patient has a poor prognosis. Family endorses that she has been declining in the last few weeks. She has stopped eating. She does not even eat her favorite foods. There is a strong suspicion that patient may be aspirating. Mild bibasilar opacities on x-ray. Continue patient on meropenem and vancomycin at this time. Patient is allergic to penicillin ? Sputum culture pending ? COVID antigen negative Blood cultures pending ? Most likely has metabolic encephalopathy secondary to confusion. She is able to talk to me this morning seems more alert. ? Patient aspirin Plavix 78 she was treated for NSTEMI in the last hospital stay. ? Discussed with family that she will not be a candidate for any further invasive cardiac workup secondary to her not being able to. Family does not want to pursue endoscopy or colonoscopy they would like to avoid invasive procedures. ? Avoid renal toxic medications. ? Patient is status post 1 unit packed RBC. ? Does have generalized anasarca especially in lower extremities. Has severely low albumin. ? Discussed with family that this is due to poor nutrition ? Speech swallow evaluation ordered. ? No pharmacological DVT prophylaxis ? We will observe patient on antibiotics Next 24 to 48 hours. -Patient awake alert. Added hypoglycemia protocol on the chart. ? Son at bedside. ? Do speech swallow evaluation. Restart diet. ? Out of bed to chair ? Will call [facility] regarding wound care instructions for her bilateral shins. Will place wound care orders today. DNR/DNI Attestations 2 Medical Necessity Statement*: Requires continued hospitalization for management of pneumonia, metabolic encephalopathy, failure to thrive. Diagnoses Pneumonia J18.9 Acute encephalopathy G93.40 Anemia D64.9 Chronic renal insufficiency N18.9 Failure to thrive
[2023-12-27 10:16] LABS: Glucose Point of Care 60 mg/dL (70-110)
[2023-12-27] MEDS: dextrose 5%-sod chloride 0.45% 1,000 ML 75 ML IV (10:54)
[2023-12-27 13:25] LABS: Glucose Point of Care 67 mg/dL (70-110)
[2023-12-27] MEDS: dextrose 10% 1,000 ML 50 ML IV (13:50)
[2023-12-27 13:59] LABS: Glucose Point of Care 81 mg/dL (70-110)
[2023-12-27] MEDS: sodium hypochlorite 0.125% Btl 473 mL 1 APPLIC TOPICAL (14:47)
--- NOTE | 2023-12-27 14:47 | PC.NURSE ---
Spoke with Megan LAWSON in [place], where pt resides. RN states that for leg wounds they dress them with Dakin's solution, petroleum gauze, and wrap in kerlex. All wound treatments completed. Pictures sent to Dr. Gomes for chart update.
--- NOTE | 2023-12-27 14:55 | XRR_ITS ---
PROCEDURE INFORMATION: Exam: XR Chest Exam date and time: 12/27/2023 2:37 PM Age: 88 years old Clinical indication: Device placement; Picc; Additional info: Picc confirmation TECHNIQUE: Imaging protocol: Radiologic exam of the chest. Views: 1 view. COMPARISON: CR (CHEST, ) 12/25/2023 6:07 AM FINDINGS: Lungs: No focal consolidation. Right basilar hazy opacities compatible with edema or developing infection in the proper clinical setting. Pleural spaces: No evidence of pneumothorax. Small bilateral pleural effusions. Heart/Mediastinum: Atherosclerotic calcifications of the aortic arch. Cardiomediastinal silhouette is otherwise within normal limits. Left-sided PICC line in place with tip in the region of the distal SVC. Bones/joints: No evidence of acute osseous abnormality. XR/XR chest 1V portable [id number] IMPRESSION: 1. Left-sided PICC line in place with tip in the region of the distal SVC. 2. Right basilar hazy opacities compatible with edema or developing infection in the proper clinical setting. 3. Small bilateral pleural effusions.
--- NOTE | 2023-12-27 15:45 | PC.NURSE ---
Double lumen PICC placed to left brachial vein. Referred to vascular access nurse for possible need for continued IV antibiotics, D10 infusion, and poor access. Risks and benefits discussed with patient and pt son, Lexx. Informed consent obtained from pt son. Right arm assessed with no viable veins noted. Left arm assessed with left brachial vein 3.2 mm, straight, and apparent best choice for placement. Using sterile technique and MST, left brachial vein accessed with moderate difficulty x 1 stick. Mid-arm circumference measured 10 cm from left AC 27 cm. Trimmed cath 37 cm with 0 cm external length noted. Tip appears to end in distal SVC, awaiting read from vRAd. Line secured with stat-lock. Insertion site covered with Biopatch, gauze, and TSM. Report given to bedside nurseKartik.
--- NOTE | 2023-12-27 16:10 | PC.NURSE ---
Dr. Guadarrama covering for notified of patient reporting leg pain 03/07, order received for 1mg Morphine Q4 PRN, Also notified Dr. Guadarrama that BG check at 66 due to D10 being off for IV failure and PICC line placement, restarting D10 and rechecking BG.
[2023-12-27 16:12] LABS: Glucose Point of Care 72 mg/dL (70-110)
[2023-12-27 16:12] LABS: Glucose Point of Care 66 mg/dL (70-110)
[2023-12-27 16:36] LABS: Glucose Point of Care 67 mg/dL (70-110)
[2023-12-27 17:14] LABS: Glucose Point of Care 78 mg/dL (70-110)
--- NOTE | 2023-12-27 18:03 | PC.NURSE ---
Patient reports pain 5/10 on pain scale, refusing pain medication at this time.
[2023-12-27 19:14] LABS: Glucose Point of Care 105 mg/dL (70-110)
[2023-12-27] MEDS: atorvastatin 40 mg Tablet PO (20:12)
[2023-12-27 20:59] LABS: Glucose Point of Care 124 mg/dL (70-110)
[2023-12-27 21:24] LABS: Glucose Point of Care 121 mg/dL (70-110)
[2023-12-27 22:01] LABS: Glucose Point of Care 141 mg/dL (70-110)
[2023-12-27] MEDS: morphine 4 mg/mL SDV 1 mL 1 MG IVP (22:35)
[2023-12-27 23:01] LABS: Glucose Point of Care 123 mg/dL (70-110)
[2023-12-27 23:58] LABS: Glucose Point of Care 119 mg/dL (70-110)
[2023-12-28] VITALS (36 sets, daily range): BP systolic 111–155; BP diastolic 63–91; PULSE 75–114; RESP 16–28; TEMP 36.3–37.4; O2SAT 84–99; BMI 27.6
[2023-12-28 04:03] LABS: Basophils % 0.4 %; Eosinophils # 0.2 10^3/uL (0.0-0.8); Eosinophils % 1.9 %; Hematocrit 30.5 % (36-47); Lymphocytes # 1.1 10^3/uL (0.8-4.8); Lymphocytes % 10.4 %; Mean Corpuscular HGB Conc 30.8 g/dL (30-55); Mean Corpuscular Hemoglobin 29.5 pg (27-33); Mean Corpuscular Volume 95.6 fl (85-98); Mean Platelet Volume 9.2 fL (7.4-10.4); Monocytes # 0.9 10^3/uL (0.2-0.9); Monocytes % 7.9 %; Neutrophils # 8.48 10^3/uL (1.8-7.7); Neutrophils % 78.8 %; Nucleated Red Blood Cells % 0 %; Platelet Count 406 10^3/cmm (157-399); Red Blood Count 3.19 10^6/uL (3.85-5.65); Red Cell Distribution Width 18.7 % (12.1-15.1); White Blood Count 10.77 10^3/uL (3.29-11.43)
[2023-12-28 04:20] LABS: Magnesium 1.7 mg/dL (1.7-2.3)
[2023-12-28 06:09] LABS: Glucose Point of Care 118 mg/dL (70-110)
[2023-12-28] MEDS: allopurinol 100 mg Tablet PO (06:10)
[2023-12-28] MEDS: levothyroxine 75 mcg Tablet PO (06:10)
--- NOTE | 2023-12-28 09:57 | PC.SOCIAL ---
IMM Update pg 2 of IMM updated and reviewed w/ patient. Copy provided and copy dated, initialed and placed in chart.
[2023-12-28] MEDS: meropenem 1,000 MG in sodium chloride 0.9% (plus) 50 ML 100 MG IV ×2 (10:22→20:03)
[2023-12-28] MEDS: pantoprazole 40 mg SDV IVP ×2 (10:22→20:04)
[2023-12-28] MEDS: dextrose 10% 1,000 ML 50 ML IV (10:23)
[2023-12-28] MEDS: vancomycin 1,000 MG in sodium chloride 0.9% 250 ML 250 MG IV (10:23)
[2023-12-28 12:35] LABS: Methicillin-Resist S.aureu PCR DETECTED (NOT DETECTED)
--- NOTE | 2023-12-28 15:03 | P.PN_ITS ---
Subjective 2 Subjective: Patient is alert and awake today. He is able to tell me her correct name, knows that she is in the hospital. Does not know why she is here. Correctly tells me that she lives in [place]. Afebrile hemodynamically stable. Fingersticks are well-maintained. Medications: Reviewed: Yes Vitals/I&O/Wt Last Vital Signs Temp 97.5 F L 12/28/23 10:00 Pulse 75 12/28/23 14:30 Resp 19 H 12/28/23 14:30 BP 125/83 12/28/23 14:30 Pulse Ox 97 12/28/23 14:30 O2 Del Method Room Air, Venturi Mask 12/28/23 06:00 12/28/23 12/28/23 12/28/23 06:59 14:59 22:59 Intake Total 1300 / 1300 Balance 1300 / 1300 Weight last 48 hrs Weight 73.113 kg Weight 73.527 kg Physical Exam 2 Narrative: General: No acute distress, AO x3 HEENT: PERRLA, pupils bilaterally equal and reactive, pallors not present Chest: Normal vesicular breath sounds, no added sounds, equal good air entry bilaterally CVS: S1-S2 regular, no murmurs, no tachycardia, no gallops, no rubs Abdomen: Soft, nontender, no organomegaly, bowel sounds present Neuro: No focal deficits, no facial deformity, AO x3, power 5/5 in all limbs Extremities: Chronic lower extremity swelling, unchanged per patient. Data 12/28/23 03:30 12/27/23 01:50 A&P Assessment and plan (1) Pneumonia: Patient appears to have significant pneumonia She recently had influenza at the nursing facility, 1 week ago and had Tamiflu. Secondary to concern for aspiration will involve speech therapy N.p.o. for now IV antibiotics consisting of vancomycin and meropenem, she is allergic to penicillin Sputum culture COVID antigen MRSA PCR Blood cultures (2) Acute encephalopathy: Appears to have some mild increase of confusion/encephalopathy associate with pneumonia consistent with acute metabolic encephalopathy. No need for CT scan currently. Monitor for improvement. (3) Anemia: Significant anemia. Her last hospital stay she was treated for non-ST elevation myocardial infarction with addition of Plavix and aspirin Hold anticoagulants and antiplatelets Transfuse 1 unit of packed red blood cells next close follow-up hemoglobin Iron studies, B12 folate, stool Hemoccult Protonix 80 mg IV x 1 in the ER and then 40 mg IV twice daily No intention of further evaluation currently with EGD or colonoscopy after visiting with the family. They do want medical treatment but not invasive procedures. (4) Chronic renal insufficiency: Appears to be stable currently Avoid renal toxic medications She is getting a unit of blood. She is also had some IV fluids in the emergency department. Would not give further IV fluids secondary to her peripheral edema, severely low albumin. I would rather she orally hydrate/eat if appropriate with speech therapy. (5) Failure to thrive: I have concern with recommendations physical appearance that is consistent with failure to thrive. I suspect she has not been eating well. Her albumin is very low. I discussed with the family this usually portends a poor prognosis. Plan History of MGUS Past history of DVT, not on anticoagulation Pressure ulcers lower ext[facility] cellulitis right arm. Multiple other medical problems as outlined in past medical history allow natural SCDs for DVT prophylaxis, anticoagulation contraindicated With anemia #Failure to thrive #History of MGUS #Past history of DVT, not on anticoagulation #Pressure ulcers bilateral lower extremities, history of cellulitis #CKD #Acute on chronic anemia #Metabolic encephalopathy #Bilateral bibasilar pneumonia, most likely secondary to aspiration? Today's plan 12/27/2023 ? Had a long discussion with family that patient has a poor prognosis. Family endorses that she has been declining in the last few weeks. She has stopped eating. She does not even eat her favorite foods. There is a strong suspicion that patient may be aspirating. Mild bibasilar opacities on x-ray. Continue patient on meropenem and vancomycin at this time. Patient is allergic to penicillin ? Sputum culture pending ? COVID antigen negative Blood cultures pending ? Most likely has metabolic encephalopathy secondary to confusion. She is able to talk to me this morning seems more alert. ? Patient aspirin Plavix 78 she was treated for NSTEMI in the last hospital stay. ? Discussed with family that she will not be a candidate for any further invasive cardiac workup secondary to her not being able to. Family does not want to pursue endoscopy or colonoscopy they would like to avoid invasive procedures. ? Avoid renal toxic medications. ? Patient is status post 1 unit packed RBC. ? Does have generalized anasarca especially in lower extremities. Has severely low albumin. ? Discussed with family that this is due to poor nutrition ? Speech swallow evaluation ordered. ? No pharmacological DVT prophylaxis ? We will observe patient on antibiotics Next 24 to 48 hours. -Patient awake alert. Added hypoglycemia protocol on the chart. ? Son at bedside. ? Do speech swallow evaluation. Restart diet. ? Out of bed to chair ? Will call group home regarding wound care instructions for her bilateral shins. Will place wound care orders today. DNR/DNI Plan for today December 28, 2023. Patient was moved to the ICU due to concern for A-fib. Currently patient does not have A-fib RVR. To be moved out of ICU today. Speech evaluation completed. Dysphagia 5 diet with mildly thick liquids recommended. Patient is alert and awake, able to answer questions. She is hard of hearing. Continue antibiotics meropenem and vancomycin. Awaiting sputum culture. Blood culture negative to date. Check urine bacterial antigen. Move out of ICU. Hypoglycemia has now resolved. Attestations 2 Medical Necessity Statement*: ongoing need for iv abx Coding Level of Care Code Acute Code for Chg Fwd Moderate MDM includes number and complexity of problems actively addressed during encounter, amount and/or complexity of data reviewed/ordered and described risk of complication, morbidity or mortality of management as documented Diagnoses Pneumonia J18.9 Acute encephalopathy G93.40 Anemia D64.9 Chronic renal insufficiency N18.9 Failure to thrive
[2023-12-28 18:44] LABS: Glucose Point of Care 131 mg/dL (70-110)
[2023-12-28] MEDS: atorvastatin 40 mg Tablet PO (19:34)
[2023-12-28 20:14] LABS: Glucose Point of Care 106 mg/dL (70-110)
[2023-12-28 21:12] LABS: Glucose Point of Care 108 mg/dL (70-110)
[2023-12-28 22:04] LABS: Glucose Point of Care 98 mg/dL (70-110)
[2023-12-28 23:07] LABS: Glucose Point of Care 97 mg/dL (70-110)
[2023-12-29] VITALS (8 sets, daily range): BP systolic 120–150; BP diastolic 80–105; PULSE 76–93; RESP 16–18; TEMP 36.2–36.6; O2SAT 94–100
[2023-12-29 00:23] LABS: Glucose Point of Care 106 mg/dL (70-110)
[2023-12-29 01:42] LABS: Glucose Point of Care 101 mg/dL (70-110)
[2023-12-29 03:21] LABS: Glucose Point of Care 92 mg/dL (70-110)
[2023-12-29 05:15] LABS: Basophils % 0.5 %; Eosinophils # 0.2 10^3/uL (0.0-0.8); Eosinophils % 2.8 %; Hematocrit 30.6 % (36-47); Lymphocytes # 1.1 10^3/uL (0.8-4.8); Lymphocytes % 13.7 %; Mean Corpuscular HGB Conc 31.7 g/dL (30-55); Mean Corpuscular Hemoglobin 29.8 pg (27-33); Mean Corpuscular Volume 94.2 fl (85-98); Mean Platelet Volume 8.8 fL (7.4-10.4); Monocytes # 0.9 10^3/uL (0.2-0.9); Monocytes % 10.5 %; Neutrophils # 5.82 10^3/uL (1.8-7.7); Neutrophils % 71.4 %; Nucleated Red Blood Cells % 0 %; Platelet Count 385 10^3/cmm (157-399); Red Blood Count 3.25 10^6/uL (3.85-5.65); Red Cell Distribution Width 18.1 % (12.1-15.1); White Blood Count 8.16 10^3/uL (3.29-11.43)
[2023-12-29 05:39] LABS: Alanine Aminotransferase 11 U/L (0-33); Albumin Level 1.7 g/dL (3.5-5.2); Alkaline Phosphatase 124 U/L (35-105); Anion Gap 11.5 (5-19); Aspartate Amino Transferase 23 U/L (0-32); Blood Urea Nitrogen 24 mg/dL (8-23); Calcium 8.4 mg/dL (8.5-10.5); Carbon Dioxide 21 mmol/L (22-29); Chloride 112 mmol/L (98-107); Creatinine Clr Calc Pharmacy 30.0037; Globulin 2.9 g/dL (1.3-4.6); Glucose 92 mg/dL (65-115); Osmolality Calculated 296 mOsm/kg (285-295); Potassium 3.5 mmol/L (3.5-5.1); Sodium 141 mmol/L (136-145); Total Bilirubin 0.3 mg/dL (0.15-1.2); Total Protein 4.6 g/dL (6.6-8.7)
[2023-12-29] MEDS: allopurinol 100 mg Tablet PO (06:07)
[2023-12-29] MEDS: aspirin 81 mg EC Tablet PO (06:08)
[2023-12-29] MEDS: levothyroxine 75 mcg Tablet PO (06:08)
[2023-12-29 06:38] LABS: Glucose Point of Care 90 mg/dL (70-110)
[2023-12-29] MEDS: pantoprazole 40 mg SDV IVP ×2 (08:32→20:25)
[2023-12-29] MEDS: meropenem 1,000 MG in sodium chloride 0.9% (plus) 50 ML 100 MG IV (08:32)
[2023-12-29 08:44] LABS: Glucose Point of Care 90 mg/dL (70-110)
[2023-12-29 09:45] LABS: Vancomycin Trough 23.3 ug/mL (10-15)
[2023-12-29 10:59] LABS: Glucose Point of Care 96 mg/dL (70-110)
--- NOTE | 2023-12-29 14:06 | PM.PN ---
Subjective Subjective: no new complaints today, prefers to sleep most of the morning. Currently on RA. Noted to have expiratory wheezing on exam today Medications: Reviewed: Yes Vitals/I&O/Wt Last Vital Signs Temp 97.2 F L 12/29/23 11:39 Pulse 85 12/29/23 11:39 Resp 16 12/29/23 11:39 BP 142/105 12/29/23 11:39 Pulse Ox 96 12/29/23 11:39 O2 Del Method Room Air 12/29/23 11:39 12/28/23 12/29/23 12/29/23 22:59 06:59 14:59 Intake Total 726.667 / 6.667 100 / 100 Balance 726.667 / 2025.667 100 / 100 Weight last 48 hrs Weight 76.793 kg Weight 73.113 kg Physical Exam Narrative: General: No acute distress, AO x3, however prefers to sleep rigth after , says she is fair HEENT: PERRLA, pupils bilaterally equal and reactive, pallors not present Chest: Normal vesicular breath sounds, no added sounds, equal good air entry bilaterally CVS: S1-S2 regular, no murmurs, no tachycardia, no gallops, no rubs Abdomen: Soft, nontender, no organomegaly, bowel sounds present Neuro: No focal deficits, no facial deformity, AO x3, power 5/5 in all limbs Extremities: Chronic lower extremity swelling, Data 12/29/23 04:56 12/29/23 04:56 A&P Assessment and plan (1) Pneumonia: Patient appears to have significant pneumonia She recently had influenza at the nursing facility, 1 week ago and had Tamiflu. Secondary to concern for aspiration will involve speech therapy N.p.o. for now IV antibiotics consisting of vancomycin and meropenem, she is allergic to penicillin Sputum culture COVID antigen MRSA PCR Blood cultures (2) Acute encephalopathy: Appears to have some mild increase of confusion/encephalopathy associate with pneumonia consistent with acute metabolic encephalopathy. No need for CT scan currently. Monitor for improvement. (3) Anemia: Significant anemia. Her last hospital stay she was treated for non-ST elevation myocardial infarction with addition of Plavix and aspirin Hold anticoagulants and antiplatelets Transfuse 1 unit of packed red blood cells next close follow-up hemoglobin Iron studies, B12 folate, stool Hemoccult Protonix 80 mg IV x 1 in the ER and then 40 mg IV twice daily No intention of further evaluation currently with EGD or colonoscopy after visiting with the family. They do want medical treatment but not invasive procedures. (4) Chronic renal insufficiency: Appears to be stable currently Avoid renal toxic medications She is getting a unit of blood. She is also had some IV fluids in the emergency department. Would not give further IV fluids secondary to her peripheral edema, severely low albumin. I would rather she orally hydrate/eat if appropriate with speech therapy. (5) Failure to thrive: I have concern with recommendations physical appearance that is consistent with failure to thrive. I suspect she has not been eating well. Her albumin is very low. I discussed with the family this usually portends a poor prognosis. Plan History of MGUS Past history of DVT, not on anticoagulation Pressure ulcers lower ext[facility] for cellulitis right arm. Multiple other medical problems as outlined in past medical history allow natural SCDs for DVT prophylaxis, anticoagulation contraindicated With anemia #Failure to thrive #History of MGUS #Past history of DVT, not on anticoagulation #Pressure ulcers bilateral lower extremities, history of cellulitis #CKD #Acute on chronic anemia #Metabolic encephalopathy #Bilateral bibasilar pneumonia, most likely secondary to aspiration? Today's plan 12/27/2023 ? Had a long discussion with family that patient has a poor prognosis. Family endorses that she has been declining in the last few weeks. She has stopped eating. She does not even eat her favorite foods. There is a strong suspicion that patient may be aspirating. Mild bibasilar opacities on x-ray. Continue patient on meropenem and vancomycin at this time. Patient is allergic to penicillin ? Sputum culture pending ? COVID antigen negative Blood cultures pending ? Most likely has metabolic encephalopathy secondary to confusion. She is able to talk to me this morning seems more alert. ? Patient aspirin Plavix 78 she was treated for NSTEMI in the last hospital stay. ? Discussed with family that she will not be a candidate for any further invasive cardiac workup secondary to her not being able to. Family does not want to pursue endoscopy or colonoscopy they would like to avoid invasive procedures. ? Avoid renal toxic medications. ? Patient is status post 1 unit packed RBC. ? Does have generalized anasarca especially in lower extremities. Has severely low albumin. ? Discussed with family that this is due to poor nutrition ? Speech swallow evaluation ordered. ? No pharmacological DVT prophylaxis ? We will observe patient on antibiotics Next 24 to 48 hours. -Patient awake alert. Added hypoglycemia protocol on the chart. ? Son at bedside. ? Do speech swallow evaluation. Restart diet. ? Out of bed to chair ? [facility] regarding [facility] care instructions for her bilateral shins. Will place wound care orders today. DNR/DNI Plan for today December 28, 2023. Patient was moved to the ICU due to concern for A-fib. Currently patient does not have A-fib RVR. To be moved out of ICU today. Speech evaluation completed. Dysphagia 5 diet with mildly thick liquids recommended. Patient is alert and awake, able to answer questions. She is hard of hearing. Continue antibiotics meropenem and vancomycin. Awaiting sputum culture. Blood culture negative to date. Check urine bacterial antigen. Move out of ICU. Hypoglycemia has now resolved. Plan for today December 29, 2023. Patient moved out of ICU to [facility] yesterday. Reviewed serial EKGs. Patient does not have A-fib on any of the 12 leads. Underlying rhythm appears to be sinus rhythm with multiple APCs. No acute events on telemetry. Discussed updates with her son Lexx today. Patient states that even at a baseline patient with answer some simple questions but does not like to engage in extended conversation. Does like to sleep most of the day. Leukocytosis is currently resolved. Patient is afebrile and hemodynamically stable. Will transition patient from IV to oral antibiotics today and assess for tolerability. If remains stable with these interventions [facility]. Trial of mirtazapine 7.5 mg daily as an appetite stimulant.D/c morphine. Nystatin ordered for intertrigo. Attestations Medical Necessity Statement*: transition iv to oral abx. asses for tolerance. Anticipate discharge upcoming 24 hrs if able to tolerate medication changes Coding Level of Care Code Acute Code for g Fwd Diagnoses Pneumonia J18.9 Acute encephalopathy G93.40 Anemia D64.9 Chronic renal insufficiency N18.9 Failure to thrive
[2023-12-29] MEDS: azithromycin 250 mg Tablet 500 MG PO (15:21)
[2023-12-29] MEDS: FUROsemide 10 mg/mL SDV 2mL 20 MG IVP (15:21)
[2023-12-29 16:56] LABS: Glucose Point of Care 83 mg/dL (70-110)
[2023-12-29] MEDS: amoxicillin-clav 875-125 mg Tablet 1 TAB PO (17:22)
[2023-12-29] MEDS: nystatin powder 30 gm Btl 1 APPLIC TOPICAL (17:22)
[2023-12-29] MEDS: mirtazapine 15 mg Tablet 7.5 MG PO (20:22)
[2023-12-29] MEDS: atorvastatin 40 mg Tablet PO (20:22)
[2023-12-29 22:26] LABS: Glucose Point of Care 98 mg/dL (70-110)
[2023-12-30 02:34] LABS: Glucose Point of Care 118 mg/dL (70-110)
[2023-12-30 04:04] VITALS: BP 152/92; PULSE 98; RESP 16; TEMP 36.4; O2SAT 95
[2023-12-30 04:55] VITALS: PULSE 83
[2023-12-30 05:14] LABS: Basophils # 0.1 10^3/uL (0.0-0.1); Basophils % 0.9 %; Eosinophils # 0.3 10^3/uL (0.0-0.8); Eosinophils % 3.8 %; Lymphocytes # 1.3 10^3/uL (0.8-4.8); Mean Corpuscular HGB Conc 30.9 g/dL (30-55); Mean Corpuscular Hemoglobin 29.6 pg (27-33); Mean Corpuscular Volume 95.8 fl (85-98); Mean Platelet Volume 8.9 fL (7.4-10.4); Monocytes # 0.8 10^3/uL (0.2-0.9); Monocytes % 10.9 %; Neutrophils # 4.51 10^3/uL (1.8-7.7); Neutrophils % 64.1 %; Nucleated Red Blood Cells % 0 %; Platelet Count 388 10^3/cmm (157-399); Red Blood Count 3.34 10^6/uL (3.85-5.65); Red Cell Distribution Width 18.1 % (12.1-15.1); White Blood Count 7.04 10^3/uL (3.29-11.43)
[2023-12-30 05:32] LABS: Alanine Aminotransferase 10 U/L (0-33); Albumin Level 1.7 g/dL (3.5-5.2); Alkaline Phosphatase 200 U/L (35-105); Anion Gap 11.6 (5-19); Aspartate Amino Transferase 29 U/L (0-32); Blood Urea Nitrogen 23 mg/dL (8-23); Calcium 8.5 mg/dL (8.5-10.5); Carbon Dioxide 21 mmol/L (22-29); Chloride 111 mmol/L (98-107); Creatinine Clr Calc Pharmacy 31.8496; Glucose 85 mg/dL (65-115); Osmolality Calculated 293 mOsm/kg (285-295); Potassium 3.6 mmol/L (3.5-5.1); Sodium 140 mmol/L (136-145); Total Bilirubin 0.3 mg/dL (0.15-1.2); Total Protein 4.7 g/dL (6.6-8.7)
[2023-12-30 06:07] LABS: Glucose Point of Care 73 mg/dL (70-110)
[2023-12-30] MEDS: aspirin 81 mg EC Tablet PO (06:24)
[2023-12-30] MEDS: levothyroxine 75 mcg Tablet PO (06:24)
[2023-12-30] MEDS: allopurinol 100 mg Tablet PO (06:24)
--- NOTE | 2023-12-30 07:00 | XR_ITS ---
WS: [id number] Examination: XR chest 1V portable [id number] Reason for Exam: pneumonia Date: December 30, 2023 Comparison: December 27, 2023 Findings: The heart is enlarged. There is a left PICC The left hemidiaphragm remains obscured and the right hemidiaphragm is indistinct. There is bilateral basilar infiltrates and or effusion suspected. There is no pulmonary edema. There is mild curvature of the spine which in part may be positional. Degenerative changes of the tho racic spine are present. Impression: Continued bilateral basilar opacities thought to be effusion and consolidation. This appears similar to previous studies particularly at the left base.
[2023-12-30 07:41] VITALS: BP 141/84; PULSE 98; RESP 17; TEMP 36.4; O2SAT 96
[2023-12-30] MEDS: azithromycin 250 mg Tablet 500 MG PO (07:58)
[2023-12-30] MEDS: amoxicillin-clav 875-125 mg Tablet 1 TAB PO (07:59)
[2023-12-30] MEDS: pantoprazole 40 mg SDV IVP (07:59)
[2023-12-30] MEDS: nystatin powder 30 gm Btl 1 APPLIC TOPICAL (08:00)
[2023-12-30 08:29] VITALS: PULSE 103; RESP 20; O2SAT 98
--- NOTE | 2023-12-30 09:54 | PC.NURSE ---
Pt unable to void. Bladder scan shows 492ml residual. Dr. Mata contacted and advised. New order received to place indwelling dominguez.
--- NOTE | 2023-12-30 10:36 | PM.DCS ---
Discharge Providers Date of Admission: 12/25/23 12:39 Date of Discharge: December 30, 2023 Attending Provider at Admission: Ariel Benítez MD Attending Provider at Discharge: Marybeth Mata MD Primary Care Provider: Kavin Quick Diagnoses at Discharge Discharge Diagnosis (1) Pneumonia: Status: Acute (2) Acute encephalopathy: Status: Acute (3) Anemia: Status: Acute (4) Chronic renal insufficiency: Status: Chronic (5) Failure to thrive: Status: Acute Reason for Visit Reason for Visit: CP Brief History: 88 year old female presenting to the emergency department from the skilled nursing with concerns of fever, recent flu, concern of chest discomfort. She was encephalopathic upon presentation. Chest x-ray with official report of mild bibasilar infiltrates, on personal review appears to have a right lower lobe pneumonia. Concern for bacterial pneumonia as a complication of recent influenza infection. She tested positive for MRSA PCR. She received meropenem and IV vancomycin during the course of her admission here. This has been transitioned to oral Augmentin and oral linezolid at the time of discharge. Patient's encephalopathy improved. Son reported Her to be at baseline mental status. Patient is able to correctly state her name, knows that she is in the hospital, however does need to be reoriented as to why she is here. hospital course also otherwise notable for urinary retention. She failed voiding trial twice. Ultimately Ureña catheter has been placed at the time of discharge. Please reassess with voiding trials again at SNF.. Patient had also been complaining of a poor appetite, trial of mirtazapine 7.5 mg p.o. daily. New medications at the time of discharge include Augmentin, linezolid and mirtazapine. Physical Exam Narrative: General: No acute distress, AO x2 HEENT: PERRLA, pupils bilaterally equal and reactive, pallors not present Chest: intermittent crackles on exam CVS: S1-S2 regular, no murmurs, no tachycardia, no gallops, no rubs Abdomen: Soft, nontender, no organomegaly, bowel sounds present Neuro: No focal deficits, no facial deformity, AO x3, power 5/5 in all limbs Extremities: No edema clubbing or cyanosis. Urinary Catheter Management: Ureña: Cath Placed During This Visit: yes Urinary Catheter Date of Insertion: 12/30/23 Urinary Catheter Time of Insertion: 10:22 Discharge Data Studies Completed and Pending Completed Studies During Hospitalization Category Date Time Status CXRP [XR chest 1V portable [id number]] Routine Exams 12/27/23 14:55 Completed XR chest 1V 20919 Stat Exams 12/25/23 05:52 Completed XR chest 1V portable [id number] AM LABS Exams 12/30/23 07:00 Completed XR tibia fibula RT 2V [id number] Routine Exams 12/25/23 17:03 Completed Pending at discharge Category Date Time Status MRSA [Methicillin Resistant S.aureu] Routine Lab 12/28/23 22:50 Received SARS Covid-2 Antigen Routine Lab 12/30/23 10:25 Received Sputum Culture and Gram Stain Routine Lab 12/25/23 09:01 Uncollected Radiology Impressions Tibia/Fibula X-Ray 12/25/23 17:03 IMPRESSION: 1. 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 No acute fracture or bony destructive lesion is demonstrated. 2. Soft tissue ulcers posterior calf. Laboratory Results WBC 7.04 10^3/uL (3.29-11.43) 12/30/23 04:58 RBC 3.34 10^6/uL (3.85-5.65) L 12/30/23 04:58 Hgb 9.90 g/dL (11.27-16.99) L 12/30/23 04:58 Hct 32.0 % (36-47) L 12/30/23 04:58 MCV 95.8 fl (85-98) 12/30/23 04:58 MCH 29.6 pg (27-33) 12/30/23 04:58 MCHC 30.9 g/dL (30-55) 12/30/23 04:58 RDW 18.1 % (12.1-15.1) H 12/30/23 04:58 Plt Count 388 10^3/cmm (157-399) 12/30/23 04:58 MPV 8.9 fL (7.4-10.4) 12/30/23 04:58 Neut % (Auto) 64.1 % 12/30/23 04:58 Lymph % (Auto) 19.0 % 12/30/23 04:58 [place] % (Auto) 10.9 % 12/30/23 04:58 Eos % (Auto) 3.8 % 12/30/23 04:58 Baso % (Auto) 0.9 % 12/30/23 04:58 Neut # (Auto) 4.51 10^3/uL (1.8-7.7) 12/30/23 04:58 Lymph # (Auto) 1.3 10^3/uL (0.8-4.8) 12/30/23 04:58 [place] # (Auto) 0.8 10^3/uL (0.2-0.9) 12/30/23 04:58 Eos # (Auto) 0.3 10^3/uL (0.0-0.8) 12/30/23 04:58 Baso # (Auto) 0.1 10^3/uL (0.0-0.1) 12/30/23 04:58 Nucleated RBC % (auto) 0 % 12/30/23 04:58 Nucleated RBCs # 0.0 /100WBC 12/30/23 04:58 Sodium 140 mmol/L (136-145) 12/30/23 04:58 Potassium 3.6 mmol/L (3.5-5.1) 12/30/23 04:58 Chloride 111 mmol/L (98-107) H 12/30/23 04:58 Carbon Dioxide 21 mmol/L (22-29) L 12/30/23 04:58 Anion Gap 11.6 (5-19) 12/30/23 04:58 BUN 23 mg/dL (8-23) 12/30/23 04:58 Creatinine 1.2 mg/dL (0.5-0.9) H 12/30/23 04:58 GFR Calculation Not Reportable 12/30/23 04:58 Glucose 85 mg/dL (65-115) 12/30/23 04:58 POC Glucose 73 mg/dL (70-110) 12/30/23 06:03 Calculated Osmolality 293 mOsm/kg (285-295) 12/30/23 04:58 Lactic Acid 0.6 mmol/L (0.5-2.2) 12/25/23 06:05 Calcium 8.5 mg/dL (8.5-10.5) 12/30/23 04:58 Phosphorus 3.3 mg/dL (2.5-4.5) 12/27/23 01:50 Magnesium 1.7 mg/dL (1.7-2.3) 12/28/23 03:30 Iron 10 ug/dL (37-145) L 12/25/23 06:05 TIBC 73 mcg/dl 12/25/23 06:05 % Saturation 13.6 % (20-50) L 12/25/23 06:05 Unsat Iron Binding 63 ug/dL (112-347) L 12/25/23 06:05 Ferritin 605 ng/mL (15-150) H 12/25/23 06:05 Total Bilirubin 0.3 mg/dL (0.15-1.2) 12/30/23 04:58 AST 29 U/L (0-32) 12/30/23 04:58 ALT 10 U/L (0-33) 12/30/23 04:58 Alkaline Phosphatase 200 U/L (35-105) H 12/30/23 04:58 Troponin T Baseline 105 ng/L (0-10) H* 12/25/23 06:05 C-Reactive Protein 148.3 mg/L (0.0-4.9) H 12/25/23 06:05 NT-Pro-B Natriuret Pep 9466 pg/mL (0-450) H 12/25/23 06:05 Total Protein 4.7 g/dL (6.6-8.7) L 12/30/23 04:58 Albumin 1.7 g/dL (3.5-5.2) L 12/30/23 04:58 Globulin 3.0 g/dL (1.3-4.6) 12/30/23 04:58 Vitamin B12 377 pg/mL (232-1245) 12/25/23 06:05 Folate > 20.0 ng/mL (4.8-37.3) 12/25/23 06:05 TSH 3.23 uIU/mL (0.27-4.20) 12/25/23 06:05 Urine Color Yellow (Yellow) 12/25/23 06:05 Urine Appearance Clear (CLEAR) 12/25/23 06:05 Urine pH 5 (5-7) 12/25/23 06:05 Ur Specific [place] 1.015 (1.005-1.030) 12/25/23 06:05 Urine Protein 1+ (Negative) H 12/25/23 06:05 Urine Glucose (UA) Norm (Normal) 12/25/23 06:05 Urine Ketones Negative (Negative) 12/25/23 06:05 Urine Blood Neg (Negative) 12/25/23 06:05 Urine Nitrate Negative (Negative) 12/25/23 06:05 Urine Bilirubin Neg (Negative) 12/25/23 06:05 Urine Urobilinogen 1 mg/dL (Negative) H 12/25/23 06:05 Ur Leukocyte Esterase Negative (Negative) 12/25/23 06:05 Urine RBC Rare /hpf (0-2) 12/25/23 06:05 Urine WBC 0-4 /hpf (0-5) H 12/25/23 06:05 Ur Squamous Epith Cells 5-10 /hpf (0-5) H 12/25/23 06:05 Ur Transition Epith Cell 0-4 /hpf 12/25/23 06:05 Calcium Oxalate Crystal Rare /hpf 12/25/23 06:05 Amorphous Sediment Not Reportable 12/25/23 06:05 Urine Bacteria Trace /hpf (NONE) 12/25/23 06:05 Coarse Granular Casts 0-4 /lpf H 12/25/23 06:05 Urine Mucus Trace /hpf 12/25/23 06:05 Vancomycin Trough 23.3 ug/mL (10-15) H 12/29/23 09:15 Coronavirus 229E (PCR) Not detected (NOT DETECT) 12/25/23 07:26 Influenza Type A Ag negative (Negative) 12/25/23 07:26 Influenza Type B Ag negative (Negative) 12/25/23 07:26 SARS-CoV-2 (PCR) Not detected (NOT DETECT) 12/25/23 07:26 MRSA (PCR) Detected (NOT DETECTED) A 12/25/23 17:38 Blood Type O Positive 12/25/23 06:50 Rho(D) Type Rh positive 12/25/23 06:50 Antibody Screen Negative 12/25/23 06:50 Crossmatch See Detail 12/25/23 06:50 Vitals Last Vital Signs Temp 97.6 F 12/30/23 07:41 Pulse 103 H 12/30/23 08:29 Resp 20 H 12/30/23 08:29 BP 141/84 12/30/23 07:41 Pulse Ox 98 12/30/23 08:29 O2 Del Method Room Air 04/03/24 08:29 Discharge Plan Discharge Patient Disposition: Xfer SNF Condition: Stable Prescriptions: New linezolid 600 mg tablet 600 mg PO BID 5 Days Qty: 10 0RF mirtazapine 15 mg Tablet 7.5 mg PO BEDTIME 30 Days Qty: 30 0RF amoxicillin-pot clavulanate 875-125 mg Tablet 1 tab PO BID 5 Days Qty: 10 0RF albuterol sulfate 2.5 mg /3 mL (0.083 %) solution for nebulization 2.5 mg inhalation TID PRN (Reason: wheezing) Qty: 75 0RF Continued cholecalciferol (vitamin D3) 50 mcg (2,000 unit) capsule 50 mcg PO DAILY@07 allopurinol 100 mg tablet 100 mg PO DAILY@07 levothyroxine 75 mcg tablet 75 mcg PO QAM potassium chloride 10 mEq tablet extended release 10 meq PO DAILY PRN (Reason: Only with Lasix) Qty: 20 0RF famotidine 20 mg tablet 20 mg PO DAILY Tylenol 325 mg Tablet 650 mg PO Q6H PRN (Reason: Pain) Miralax 17 gram Powder In Packet 17 g PO DAILY Milk of Magnesia 400 mg/5 mL Suspension 30 ml PO DAILY PRN (Reason: Constipation) Dulcolax (bisacodyl) 10 mg Suppository 10 mg NV DAILY PRN (Reason: Constipation) Lasix 20 mg Tablet 20 mg PO DAILY PRN (Reason: Edema) Multivitamins 28 mg iron- 800 mcg Tablet 1 tab PO DAILY@07 naloxone 2 mg/2 mL Syringe Kit See Rx Instructions .ROUTE .COMPLEX Rx Instructions: inject 2mg im prn oproid overdose atorvastatin 40 mg tablet 40 mg PO DAILY@20 aspirin 81 mg tablet,delayed release (DR/EC) 81 mg PO DAILY@07 Discharge Orders: Discharge Order (Routine); Ordered 12/30/23 Ordered By: Marybeth Mata Referrals: [facility] [Outside] Kavin Quick [Primary Care Provider] - Patient Instructions: Opioid Safety Activity Restrictions/Additional Instructions: patient has a new Ureña catheter for urinary retention. Failed voiding trial x 2. Please reassess for voiding trial at SNF Discharge Attestations Time Spent in Discharge Care*: greater than 30 min Quality Metrics Clinical Quality Measures [ No reported AMI, CVA or VTE this stay] Coding Level of Care Code Acute Code for Chg Fwd Diagnoses Pneumonia J18.9 Acute encephalopathy G93.40 Anemia D64.9 Chronic renal insufficiency N18.9 Failure to thrive
[2023-12-30 10:45] LABS: Glucose Point of Care 84 mg/dL (70-110)
[2023-12-30 10:54] LABS: SARS Covid-2 Antigen negative (Negative)
--- NOTE | 2023-12-30 11:41 | PC.NURSE ---
Report called to Zackery at [facility].
--- NOTE | 2023-12-30 11:41 | PC.NURSE ---
Daughter advised that pt will be transferring back to [facility] today. Out of hospital AND obtained at this time from daughter. Witnessed by Lili Weaver.
[2023-12-30 11:42] VITALS: BP 112/76; PULSE 90; RESP 14; TEMP 36.7; O2SAT 95
[2023-12-30 11:51] VITALS: BP 112/76; PULSE 90; RESP 14; TEMP 36.7; O2SAT 95
--- NOTE | 2023-12-30 12:14 | PC.NURSE ---
EMS here to transport pt back to [facility]. All belongings sent with pt.
[2023-12-30 14:05] LABS: Methicillin-Resist S.aureu PCR DETECTED (NOT DETECTED)
== END 2023-12-30 12:14 | disposition skilled nursing facility (03) | DRG 194 ==
LOC: ER 07:13 → MEDSURG 12:45 → ICU 12-27 14:39 → MEDSURG 12-28 21:16
PROVIDERS: Internal Medicine; Admitting Provider Internal Medicine; Emergency Provider Emergency Medicine; PCP Family Medicine; Visit Provider Student in an Organized Health Care Education/Training Program
DX: J18.9 Pneumonia, unspecified organism (principal); G93.40 Encephalopathy, unspecified; I50.32 Chronic diastolic (congestive) heart failure; I13.0 Hypertensive heart and chronic kidney disease with heart failure and stage 1 through stage 4 chronic kidney disease, or unspecified chronic kidney disease; N18.9 Chronic kidney disease, unspecified; D63.1 Anemia in chronic kidney disease; R62.7 Adult failure to thrive; Z68.27 Body mass index [BMI] 27.0-27.9, adult; I48.91 Unspecified atrial fibrillation; Z22.322 Carrier or suspected carrier of Methicillin resistant Staphylococcus aureus; R33.9 Retention of urine, unspecified; E16.2 Hypoglycemia, unspecified; Z66 Do not resuscitate; E78.5 Hyperlipidemia, unspecified; E03.9 Hypothyroidism, unspecified; R60.0 Localized edema; Z74.01 Bed confinement status; Z86.718 Personal history of other venous thrombosis and embolism; Z79.02 Long term (current) use of antithrombotics/antiplatelets; Z79.82 Long term (current) use of aspirin
CPT/HCPCS: 36415; 36416; 36430; 36573; 51702; 51798; 71045; 73590; 80053; 80202; 81001; 82274; 82607; 82728; 82746; 82962; 83540; 83550; 83605; 83735; 83880; 84100; 84443; 84484; 85014; 85018; 85025; 86140; 86403; 86850; 86900; 86920; 87040; 87426; 87635; 87641; 87804; 92526; 92610; 93005; 96365; 96367; 96375; 96376; 99285; C9113; J1940; J2020; J2185; J2270; J3370; J7030; J7050; J7799; P9016; Q0144

== ENCOUNTER 2024-07-06 02:39 | Emergency (ER) | payer MEDICARE, OTHER, MEDICAID, SELFPAY ==
[2024-07-06] VITALS (27 sets, daily range): BP systolic 132–173; BP diastolic 83–115; PULSE 77–113; RESP 7–29; TEMP 36.7; O2SAT 89–100; BMI 22.3
--- NOTE | 2024-07-06 02:44 | XRR_ITS ---
PROCEDURE INFORMATION: Exam: XR Left Forearm Exam date and time: 07/06/2024 3:12 AM Age: 89 years old Clinical indication: Injury or trauma; Fall; Blunt trauma (contusions or hematomas); Arm, lower and wrist; Left; Additional info: Fall pain TECHNIQUE: Imaging protocol: Radiologic exam of the left forearm. Views: 2 views. COMPARISON: No relevant prior studies available. FINDINGS: Bones/joints: Findings are suspicious for a distal radius fracture. Recommend correlation with dedicated wrist radiographs. No fractures are otherwise appreciated. Bony mineralization is decreased. Soft tissues: Normal. XR/XR forearm LT 2V [id number] IMPRESSION: 1. Findings suspicious for a fracture involving the distal radius. Recommend clinical correlation and correlation with dedicated wrist radiographs. 2. Bony demineralization.
--- NOTE | 2024-07-06 02:44 | CTR_ITS ---
PROCEDURE INFORMATION: Exam: CT Head Without Contrast Exam date and time: 07/06/2024 2:58 AM Age: 89 years old Clinical indication: Injury or trauma; Fall; Blunt trauma (contusions or hematomas); Consciousness not specified TECHNIQUE: Imaging protocol: Computed tomography of the head without contrast. Radiation optimization: All CT scans at this facility use at least one of these dose optimization techniques: automated exposure control; mA and/or kV adjustment per patient size (includes targeted exams where dose is matched to clinical indication); or iterative reconstruction. COMPARISON: CT head wo con* [id number] 07/05/2023 11:21 AM RADIATION DOSE METRICS: Total DLP (mGy-cm): 1178.18 FINDINGS: Brain: There is prominence of the subarachnoid spaces compatible with atrophy. There is small-vessel ischemic change within the periventricular white matter. No acute stroke or hemorrhage is appreciated. Cerebral ventricles: No ventriculomegaly. Paranasal sinuses: There is minimal mucosal thickening involving the paranasal sinuses. There is minimal layering fluid within the left maxillary sinus and sphenoid sinuses. Mastoid air cells: Visualized mastoid air cells are well aerated. Bones: Unremarkable. No acute fracture. Soft tissues: Unremarkable. CT/CT head wo con* [id number] IMPRESSION: 1. Atrophy with small-vessel ischemic change.
--- NOTE | 2024-07-06 02:44 | CTR_ITS ---
PROCEDURE INFORMATION: Exam: CT Cervical Spine Without Contrast Exam date and time: 07/06/2024 3:01 AM Age: 89 years old Clinical indication: Injury or trauma; Fall; Blunt trauma; Additional info: Fall pain TECHNIQUE: Imaging protocol: Computed tomography of the cervical spine without contrast. Radiation optimization: All CT scans at this facility use at least one of these dose optimization techniques: automated exposure control; mA and/or kV adjustment per patient size (includes targeted exams where dose is matched to clinical indication); or iterative reconstruction. COMPARISON: CT cervical spin wo con* [id number] 07/05/2023 11:21 AM RADIATION DOSE METRICS: Total DLP (mGy-cm): 138 FINDINGS: Bones: Examination of the reformatted images demonstrates trace anterolisthesis of C2 in relation to C3, C3 in relation to C4, C4 in relation to C5, C6 in relation to C7, C7 in relation to T1 and T1 in relation to T2. No fractures are appreciated. No blastic or lytic bony lesions are identified. There is disc space narrowing with osteophyte formation most pronounced at C5-C6 and C6-C7. There are degenerative changes involving the facets at multiple levels. Facets otherwise align normally. No fractures are noted on the axial images. Lungs: Lung apices are normal. Soft tissues: Unremarkable. CT/CT cervical spin wo con* [id number] IMPRESSION: 1. Spondylosis.
--- NOTE | 2024-07-06 02:44 | XRR_ITS ---
PROCEDURE INFORMATION: Exam: XR Left Humerus Exam date and time: 07/06/2024 3:09 AM Age: 89 years old Clinical indication: Injury or trauma; Fall; Blunt trauma (contusions or hematomas); Shoulder and arm, upper; Left; Additional info: Fall pain TECHNIQUE: Imaging protocol: Radiologic exam of the left humerus. Views: 2 or more views. COMPARISON: CT cervical spin wo con* [id number] 07/06/2024 3:01 AM FINDINGS: Bones/joints: No fracture is appreciated. Bony mineralization is decreased. The humeral head abuts the distal acromion suggesting the presence of a rotator cuff tear. Soft tissues: Normal. XR/[place] [id number] IMPRESSION: 1. No fracture identified.
--- NOTE | 2024-07-06 02:57 | W.ED.FALL ---
HPI - Fall General: Chief Complaint: Fall Stated Complaint: FALL Time Seen by Provider: 07/06/24 02:39 History of Present Illness: Patient brought in by [facility] from [facility]. Patient rolled out of bed hitting her face on the floor. Patient has multiple skin tears and EMS placed a c-collar on her because she said her neck hurts. Unknown whether patient lost consciousness. Patient said she hallucinated or had a dream that her was in bed with her as startled her so she rolled away from him. Related Data Home Medications Medication Instructions Recorded Confirmed cholecalciferol (vitamin D3) 50 50 mcg PO DAILY@09/16/21 12/25/23 mcg (2,000 unit) capsule allopurinol 100 mg tablet 100 mg PO DAILY@01/19/23 12/25/23 levothyroxine 75 mcg tablet 75 mcg PO QAM 07/05/23 12/25/23 acetaminophen 325 mg tablet 650 mg PO Q6H PRN Pain 12/25/23 12/25/23 (Tylenol) aspirin 81 mg tablet,delayed 81 mg PO DAILY@12/25/23 12/25/23 release atorvastatin 40 mg tablet 40 mg PO DAILY@12/25/23 12/25/23 bisacodyl 10 mg rectal suppository 10 mg LA DAILY PRN Constipation 12/25/23 12/25/23 (Dulcolax (bisacodyl)) famotidine 20 mg tablet 20 mg PO DAILY 12/25/23 12/25/23 furosemide 20 mg tablet (Lasix) 20 mg PO DAILY PRN Edema 12/25/23 12/25/23 magnesium hydroxide 400 mg/5 mL 30 ml PO DAILY PRN Constipation 12/25/23 12/25/23 oral suspension (Milk of Magnesia) naloxone 2 mg/2 mL syringe kit See Rx Instructions .Route .COMPLEX 12/25/23 12/25/23 polyethylene glycol 3350 17 gram 17 g PO DAILY 12/25/23 12/25/23 oral powder packet (Miralax) vit no.95-ferrous 1 tab PO DAILY@12/25/23 12/25/23 fumarate 28 mg-folic acid 800 mcg tablet ( Multivitamins) Previous Rx's Medication Instructions Recorded potassium chloride 10 mEq 10 meq PO DAILY PRN Only with 07/09/23 tablet,extended release Lasix #20 tabs albuterol sulfate 2.5 mg/3 mL 2.5 mg (3 mL) inhalation TID PRN 12/30/23 (0.083 %) solution for nebulization wheezing #75 mL Allergies Allergy/AdvReac Type Severity Reaction Status Date / Time Penicillins Allergy Unknown unkown Verified 07/06/24 02:48 Sulfa (Sulfonamide Allergy Unknown unkown Verified 07/06/24 02:48 Antibiotics) Review of Systems General: Reports: 10 or more systems reviewed and unremarkable except in HPI and below PFSH ED PFSH: Medical History Acute kidney injury superimposed on chronic kidney disease Acute on chronic renal insufficiency Elevated troponin History of deep venous thrombosis (DVT) of distal vein of left lower extremity B12 deficiency Hypertension Hyperlipidemia Monoclonal gammopathy of unknown significance Bilateral lower extremity edema Hypothyroidism CKD (chronic kidney disease) Diastolic CHF Lymphedema Surgical History History of tonsillectomy and adenoidectomy 1942 History of cholecystectomy 2005 History of surgical removal of skin lesion Neck - 1969 Basal Cell of neck History of colonoscopy 2009 Family History Brother Chronic kidney disease (CKD) Other Cancer Diabetes Hyperlipidemia Hypertension Denies family history of CAD (coronary artery disease) Clotting disorder Dementia Psychiatric illness Suicide Anesthesia complication Bleeding disorder Lung disease Stroke Social History Smoking and tobacco/nicotine status: never used tobacco/nicotine Physical Exam Const: COMMON NORMALS: no acute distress, average body habitus, patient oriented x3, no limitations, healthy appearing, alert and well nourished HENMT: COMMON NORMALS: normocephalic, hearing grossly normal bilaterally, external ears normal, Normal external nose present and moist oral mucous membranes HEAD & SCALP: normocephalic NOSE: Normal external nose present EXTERNAL EAR: Yes external ears normal Eye: COMMON NORMALS: Equal, round and reactive pupils present, EOMs intact bilaterally, conjunctivae normal and no scleral icterus CONJUNCTIVA: Yes conjunctivae normal PUPIL: Yes Equal, round and reactive pupils present Neck/C-Spine: COMMON NORMALS: no JVD OTHER: C-collar in place Chest: COMMONS NORMALS: normal inspection of the chest and normal palpation of entire chest wall Resp: COMMON NORMALS: normal respiratory effort, No retractions, No use of accessory muscles and clear to auscultation bilaterally AUSCULTATION: clear to auscultation bilaterally Cardio: COMMON NORMALS: no JVD, regular rate, regular rhythm, S1 normal heart sound present, S2 normal heart sound present, No gallops present (Cardio), No clicks present (Cardio), No murmurs present (Cardio) and No rub (Cardio) RATE: regular rate RHYTHM: regular rhythm HEART SOUNDS: S1 normal heart sound present and S2 normal heart sound present GI: COMMON NORMALS: Normal to inspection, nondistended, normoactive bowel sounds present, Soft to palpation, non-tender, No hepatosplenomegaly present and no masses PALPATION: Yes Soft to palpation and Yes No hepatosplenomegaly present Extremity: NARRATIVE EXTREMITY EXAM: Tenderness with palpation over left forearm and humeral region. No obvious crepitus or deformity, Neuro: COMMON NORMALS: patient oriented x3 SENSORIUM/ORIENTATION: Yes alert Course Vital Signs: Vital signs: Vital Signs Temperature 98.0 F 07/06/24 02:40 Pulse Rate 87 07/06/24 05:33 Respiratory Rate 12 07/06/24 05:33 Blood Pressure 132/83 07/06/24 05:33 Pulse Oximetry 98 07/06/24 05:33 Oxygen Delivery Me thod Room Air 07/06/24 02:50 MDM - Fall Medical Decision Making Patient's cervical spine CT, head CT both negative, humerus x-ray was negative, forearm x-ray was suspicious for fracture of the distal radius, we will go and place patient in a sugar-tong splint and sling since she will have a cock-up wrist brace. Patient will be discharged back to her facility and case management will be consulted for an Ortho referral. Lab Data Radiology Impressions Cervical Spine CT 07/06/24 02:44 IMPRESSION: 1. Spondylosis. Forearm X-Ray 07/06/24 02:44 IMPRESSION: 1. Findings suspicious for a fracture involving the distal radius. Recommend clinical correlation and correlation with dedicated wrist radiographs. 2. Bony demineralization. Head CT 07/06/24 02:44 IMPRESSION: 1. Atrophy with small-vessel ischemic change. Humerus X-Ray 07/06/24 02:44 IMPRESSION: 1. No fracture identified. All radiology interpretation(s) finalized by discharge Discharge Plan Discharge Patient Disposition: Home Clinical Impression: Fracture of wrist Qualifiers: Encounter type: initial encounter Fracture type: closed Laterality: left Qualified Code(s): S62.102A - Fracture of unspecified carpal bone, left wrist, initial encounter for closed fracture Fall Qualifiers: Encounter type: initial encounter Qualified Code(s): W19.XXXA - Unspecified fall, initial encounter Condition: Stable Prescriptions: No Action cholecalciferol (vitamin D3) 50 mcg (2,000 unit) capsule 50 mcg PO DAILY@07 allopurinol 100 mg tablet 100 mg PO DAILY@07 levothyroxine 75 mcg tablet 75 mcg PO QAM potassium chloride 10 mEq tablet extended release 10 meq PO DAILY PRN (Reason: Only with Lasix) Qty: 20 0RF famotidine 20 mg tablet 20 mg PO DAILY Tylenol 325 mg Tablet 650 mg PO Q6H PRN (Reason: Pain) Miralax 17 gram Powder In Packet 17 g PO DAILY Milk of Magnesia 400 mg/5 mL Suspension 30 ml PO DAILY PRN (Reason: Constipation) Dulcolax (bisacodyl) 10 mg Suppository 10 mg LA DAILY PRN (Reason: Constipation) Lasix 20 mg Tablet 20 mg PO DAILY PRN (Reason: Edema) Multivitamins 28 mg iron- 800 mcg Tablet 1 tab PO DAILY@07 naloxone 2 mg/2 mL Syringe Kit See Rx Instructions .ROUTE .COMPLEX Rx Instructions: inject 2mg im prn oproid overdose atorvastatin 40 mg tablet 40 mg PO DAILY@20 aspirin 81 mg tablet,delayed release (DR/EC) 81 mg PO DAILY@07 albuterol sulfate 2.5 mg /3 mL (0.083 %) solution for nebulization 2.5 mg inhalation TID PRN (Reason: wheezing) Qty: 75 0RF Discharge Orders: Discharge ED (Routine); Ordered 07/06/24 Ordered By: Jesse Ridley Referrals: Kavin Quick [Primary Care Provider] - 1 week Patient Instructions: Wrist Fracture in Adults (ED), Suspected Fracture (ED) Activity Restrictions/Additional Instructions: Please wear your sling and your brace until seen by orthopedics. You have been referred to case management for an appointment for orthopedics due to your probable broken left wrist. Please continue to take Tylenol as directed as needed for pain. Thank you for choosing [facility] for your healthcare needs today. Please realize that you were seen in the emergency department and that we are providing you with an emergency medical screening exam and this may not be a complete and all exclusive of all testing and/or medical workup we may need to determine your element or severity of your illness. It is very important that you follow-up as instructed with your primary care provider or specialist for the additional evaluation and to discuss your medical treatment plan. You may return to the emergency department should you have concerns or if your condition changes or worsens in any way. Coding Level of Care Code ED Quarter Lining Smoother for Glen Lopez
--- NOTE | 2024-07-06 07:23 | PC.NURSE ---
[facility] to unit to take pt back approx @0723. assisted [facility] staff with transfer of pt to wheelchair, no further questions at end of report. pt left facility @0725 approx
--- NOTE | 2024-07-06 08:53 | DCPLANNER ---
Message sent to Ortho LT distal radius fx
== END 2024-07-06 07:27 | disposition home or self-care (01) ==
PROVIDERS: Emergency Provider Emergency Medicine; PCP Family Medicine
DX: S52.502A Unspecified fracture of the lower end of left radius, initial encounter for closed fracture (principal); Z79.82 Long term (current) use of aspirin; I13.0 Hypertensive heart and chronic kidney disease with heart failure and stage 1 through stage 4 chronic kidney disease, or unspecified chronic kidney disease; N18.9 Chronic kidney disease, unspecified; I50.30 Unspecified diastolic (congestive) heart failure; E78.5 Hyperlipidemia, unspecified; W06.XXXA Fall from bed, initial encounter; Y92.129 Unspecified place in nursing home as the place of occurrence of the external cause
CPT/HCPCS: 29125; 70450; 72125; 73060; 73090; 99284

== ENCOUNTER → 2024-07-20 08:59 | Outpatient (BNVA) | payer MEDICARE, OTHER, MEDICAID, SELFPAY | PROVIDERS: PCP Family Medicine; Visit Provider Nurse Practitioner | DX: S52.522A Torus fracture of lower end of left radius, initial encounter for closed fracture; W18.39XA Other fall on same level, initial encounter; Z46.89 Encounter for fitting and adjustment of other specified devices; S52.502D Unspecified fracture of the lower end of left radius, subsequent encounter for closed fracture with routine healing; X58.XXXD Exposure to other specified factors, subsequent encounter | CPT/HCPCS: 73030; 73110 ==

== ENCOUNTER 2024-07-20 11:23 | Outpatient (CLI) | payer MEDICARE, OTHER, MEDICAID, SELFPAY | END 2024-07-20 11:24 | disposition home or self-care (01) | LOC: SPT 11:32 | PROVIDERS: PCP Family Medicine; Visit Provider Nurse Practitioner | DX: Z46.89 Encounter for fitting and adjustment of other specified devices (principal); S52.502D Unspecified fracture of the lower end of left radius, subsequent encounter for closed fracture with routine healing; X58.XXXD Exposure to other specified factors, subsequent encounter | CPT/HCPCS: L3908 ==

== ENCOUNTER → 2024-08-15 08:56 | Outpatient (BNVA) | payer MEDICARE, OTHER, MEDICAID, SELFPAY | PROVIDERS: PCP Family Medicine; Visit Provider Nurse Practitioner | DX: S52.522A Torus fracture of lower end of left radius, initial encounter for closed fracture (principal); X58.XXXA Exposure to other specified factors, initial encounter | CPT/HCPCS: 73110; 99024 ==

== ENCOUNTER 2024-08-28 21:27 | Inpatient (IN) | payer MEDICARE, OTHER, MEDICAID, SELFPAY ==
[2024-08-28] VITALS (31 sets, daily range): BP systolic 99–138; BP diastolic 58–100; PULSE 102–163; RESP 9–31; TEMP 37.2; O2SAT 75–100; BMI 23.2
--- NOTE | 2024-08-28 22:07 | ECG_ITS ---
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 Measurements Intervals Colo Rate: 140 P: 0 WV: 0 QRS: -10 QRSD: 89 T: 54 QT: 289 QTc: 442 Interpretive Statements ATRIAL FIBRILLATION WITH RAPID VENTRICULAR RESPONSE LOW QRS VOLTAGE IN EXTREMITY LEADS [QRS DEFLECTION < 0.5 mV IN LIMB LEADS] ABNORMAL RHYTHM ECG Compared to ECG 12/25/2023 14:58:50 Low QRS voltage now present Sinus rhythm no longer present Electronically Signed On 08-30-2024 21:45:45 SADDLE STITCHING MACHINE OPERATOR by Lakhwinder Mcneal M.D. [email or web address]
--- NOTE | 2024-08-28 23:57 | P.HP_ITS ---
Providers/Chief Complaint Admitting Physician: Sundar Junior MD Primary Care Provider: Kavin Quick Chief Complaint: CHF UroSepsis History of Present Illness Tonia Potts is a 89 year old female, longstanding custodial resident, nonambulatory over baseline, history of chronic lower extremity ulcerations. 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 It is unknown when she had the DVT. She is transferred today from [facility]. She presented there with chief complaints of right and left lower extremity erythema and swelling with clinical concern for cellulitis. Once there she was found to have A-fib with RVR and a UTI. She has therefore been transferred to us for an inpatient admission. It appears she has a history of A-fib, not on any anticoagulation. Did not see any rate limiting medications on her list currently. Patient is unable to contribute significantly to her history but says that she may have had a fever and has been feeling poorly the last couple of days. There is no cough. She denies any pain at this time. Significant labs from outside hospital include leukocytosis with WBC at 20,000, COLLEEN on CKD with creatinine at 2.03, elevated D-dimer of 5, UA with multiple WBCs, positive leukocyte esterase and nitrite. Chest x-ray was negative for any acute infiltrates. Ureña catheter was placed, appears to be pyuria. Currently her rhythm is A-fib with RVR with heart rate ranging between 130 to 140 bpm. Not on any current medications for this. Heparin drip was started at outside hospital due to high suspicion for PE, this is being continued here. Review of Systems General: Reports: ROS unobtainable due to medical condition (Dementia) Medications/Allergies Home Medications Medication Instructions Recorded Confirmed Last Taken Type cholecalciferol (vitamin D3) 50 50 mcg PO DAILY@09/16/21 08/28/24 07/04/23 History mcg (2,000 unit) capsule allopurinol 100 mg tablet 100 mg PO DAILY@01/19/23 08/28/24 07/04/23 History acetaminophen 325 mg tablet 650 mg PO Q6H PRN Pain 12/25/23 08/28/24 Unknown History (Tylenol) aspirin 81 mg tablet,delayed 81 mg PO DAILY@12/25/23 08/28/24 Unknown History release atorvastatin 40 mg tablet 40 mg PO DAILY@20 12/25/23 08/28/24 Unknown History bisacodyl 10 mg rectal suppository 10 mg LA DAILY PRN Constipation 12/25/23 08/28/24 Unknown History (Dulcolax (bisacodyl)) famotidine 20 mg tablet 20 mg PO DAILY 12/25/23 08/28/24 Unknown History magnesium hydroxide 400 mg/5 mL 30 ml PO DAILY PRN Constipation 12/25/23 08/28/24 Unknown History oral suspension (Milk of Magnesia) naloxone 2 mg/2 mL syringe kit See Rx Instructions .Route .COMPLEX 12/25/23 08/28/24 Unknown History polyethylene glycol 3350 17 gram 17 g PO DAILY 12/25/23 08/28/24 Unknown History oral powder packet (Miralax) vit no.95-ferrous 1 tab PO DAILY@07 12/25/23 08/28/24 Unknown History fumarate 28 mg-folic acid 800 mcg tablet ( Multivitamins) albuterol sulfate 2.5 mg/3 mL 2.5 mg (3 mL) inhalation TID PRN 12/30/23 08/28/24 Unknown Rx (0.083 %) solution for nebulization wheezing #75 mL velcro cock-up splint #1 ea 07/20/24 08/15/24 Unknown Rx mirtazapine 15 mg tablet 7.5 mg PO DAILY 08/15/24 08/28/24 Unknown History levothyroxine 88 mcg tablet 88 mcg PO DAILY 08/28/24 08/28/24 Unknown History Allergies Allergy/AdvReac Type Severity Reaction Status Date / Time Penicillins Allergy Unknown unkown Verified 08/28/24 22:25 Sulfa (Sulfonamide Allergy Unknown unkown Verified 08/28/24 22:25 Antibiotics) PFSH Acute PFSH: Medical History (Updated 08/29/24 @ 00:04 by Marybeth Mata MD) Acute kidney injury superimposed on chronic kidney disease Acute on chronic renal insufficiency Elevated troponin History of deep venous thrombosis (DVT) of distal vein of left lower extremity B12 deficiency Hypertension Hyperlipidemia Monoclonal gammopathy of unknown significance Bilateral lower extremity edema Hypothyroidism CKD (chronic kidney disease) Diastolic CHF Lymphedema Surgical History History of tonsillectomy and adenoidectomy 1943 History of cholecystectomy 2005 History of surgical removal of skin lesion Neck - 1970 Basal Cell of neck History of colonoscopy 2009 Family History Brother Chronic kidney disease (CKD) Other Cancer Diabetes Hyperlipidemia Hypertension Denies family history of CAD (coronary artery disease) Clotting disorder Dementia Psychiatric illness Suicide Anesthesia complication Bleeding disorder Lung disease Stroke Social History Smoking and tobacco/nicotine status: never used tobacco/nicotine Vitals/I&O/Wt Last Vital Signs Pulse 140 H 08/28/24 21:54 Weight last 48 hrs Weight 61.371 kg Physical Exam Narrative: General: No acute distress, AO x1 HEENT: PERRLA, pupils bilaterally equal and reactive, pallors not present Chest: Normal vesicular breath sounds, no added sounds, equal good air entry bilaterally CVS: S1-S2 irregular, tachycardia present Abdomen: Soft, mildly tender to palpation in the left lower quadrant and suprapubic areas. No organomegaly Neuro: It appears patient is nonambulatory at baseline. She has bilateral foot drop. Extremities: History of scarring over posterior aspect of the right calf. Shallow ulcerations noted over the posterior aspect. Stasis dermatitis bilaterally. Along the left upper and tarot lateral thigh, there is erythema and warmth concerning for cellulitis. A&P Assessment and plan (1) Atrial fibrillation: Patient presented to outside hospital with concern for UTI and cellulitis was found to be in A-fib with RVR. It appears patient has a history of A-fib, however does not appear to be on anticoagulation or other related rate limiting medication for the same. Currently blood pressure maintained, however was noted to be borderline low at the outside facility. Therefore we will start amiodarone 150 mg over 10 minutes followed by amiodarone infusion per protocol. Likely A-fib triggered by acute infection currently. (2) Elevated d-dimer: Elevated D-dimer at outside facility at 5.0. Started on presumptive anticoagulation with heparin drip due to concern for PE given history of chronic DVT. We will continue the same. Unable to get a CTA due to COLLEEN. Will check lower extremity Doppler to see if lower extremity DVT is still present. Uncertain why patient is not on anticoagulation, this may be related to history of falls. Patient currently has brace over her right forearm and elbow. Per custodial this has been on since June due to fracture. Will obtain x-ray of the right elbow and forearm (3) UTI (urinary tract infection): Urinary tract infection as evidenced by positive UA, likely acute cystitis, suprapubic tenderness present on exam. Start presumptive treatment with cefepime 1 g IV every 24 hours which is renally dosed for creatinine clearance of 18. Obtain urine culture and blood culture (4) Cellulitis: Left thigh cellulitis History of being MRSA screen positive in the past. Add linezolid 600 mg p.o. twice daily to cefepime as above. (5) Acute kidney injury superimposed on chronic kidney disease: COLLEEN on CKD Baseline creatinine ranges between 1.1-1.5. Patient currently has a Ureña catheter placed at the outside hospital for accurate urine output monitoring. Check renal imaging to assess for any obstruction. Encourage p.o. fluid intake. (6) Failure to thrive: Longstanding, poor functional status Plan DVT prophylaxis: Currently on a heparin drip presumptively DNR/DNI Attestations Medical Necessity Statement*: Greater than 2 midnight stay is anticipated for IV antibiotics, amiodarone drip, heparin drip, further diagnostics as noted above Coding Level of Care Code Acute Code for Chg Fwd High MDM includes number and complexity of problems actively addressed during encounter, amount and/or complexity of data reviewed/ordered and described risk of complication, morbidity or mortality of management as documented Diagnoses Atrial fibrillation I48.91 Elevated d-dimer R79.89 UTI (urinary tract infection) N39.0 Cellulitis L03.90 Acute kidney injury superimposed on chronic kidney disease N17.9; N18.9 Failure to thrive
[2024-08-29] VITALS (248 sets, daily range): BP systolic 80–120; BP diastolic 45–70; PULSE 58–129; RESP 15–32; TEMP 36.7–37.9; O2SAT 88–100
--- NOTE | 2024-08-29 00:07 | XR_ITS ---
WS: [id number] XR elbow RT 2V [id number] REASON FOR EXAM: assess for fracture FINDINGS: No acute fracture or other focal bone abnormality. The joint spaces of the elbow are intact with mild narrowing and subchondral sclerosis of the ulnohum eral joint. No soft tissue abnormality. XR/XR elbow RT 2V [id number] IMPRESSION: No acute abnormality. Mild osteoarthritis.
--- NOTE | 2024-08-29 00:12 | USCV_ITS ---
Tonia Potts Age: 89 Gender: F : 1935 Exam Date: 08/29/2024 16:31 Ordering Phys: Marybeth Mata MD Technologist: CT [place]am [place] [facility] Indication: PROCEDURES: The venous duplex Doppler examination of both lower extremities was performed in the standard fashion. Bilaterally, the common femoral, superficial femoral, profunda femoral, popliteal, posterior tibial, greater saphenous veins, and the peroneal trunk were identified and interrogated in the standard fashion. These veins were found to be easily compressible with spontaneous blood flow. No evidence of insufficiency or thrombus noted. CONCLUSIONS No evidence of right lower extremity DVT. No evidence of left lower extremity DVT. David Terrell MD (Electronically Signed) Final Date: 29 August 2024 17:48 S
[2024-08-29] MEDS: heparin 5,000 unit/mL INJ 1 mL IVP (00:22)
[2024-08-29] MEDS: amiodarone 150 MG/100 ML PREMIX 400 MG IV (00:23)
[2024-08-29] MEDS: heparin drip 25,000 UNIT/500 ML PREMIX 17 UNIT IV (00:23)
[2024-08-29] MEDS: linezolid 600 mg Tablet PO ×3 (00:24→23:48)
[2024-08-29] MEDS: norepinephrine 4 MG/250 ML BAG 7.5 MG IV (01:19)
--- NOTE | 2024-08-29 03:31 | PC.NURSE ---
Admission 2122: Pt direct admit from [facility], arrived via [facility]. Alert and oriented to self only, gross confusion, denies any discomfort, soft cast in place to right arm, soft boot in place to right foot. Upon arrival, IV heparin running, no present order so med disconnected. Heart rate variable between 120-160, a fib with RVR. Reported arrival to Dr. Mata, stated she would be putting in orders after seeing pt. 0030: Dr. Mata on unit, new orders received, Heparin and Amiodarone drips started. VSS at this time. 0130: Blood pressures trending down, maps consistently in high 50's. Reported to Dr. Mata, new order received for Levophed.
[2024-08-29 05:08] LABS: Basophils # 0.1 10^3/uL (0.0-0.1); Basophils % 0.3 %; Hematocrit 27.5 % (36-47); Lymphocytes # 1.5 10^3/uL (0.8-4.8); Lymphocytes % 6.4 %; Mean Corpuscular HGB Conc 31.3 g/dL (30-55); Mean Corpuscular Hemoglobin 32.6 pg (27-33); Mean Corpuscular Volume 104.2 fl (85-98); Monocytes # 0.8 10^3/uL (0.2-0.9); Monocytes % 3.2 %; Neutrophils # 21.08 10^3/uL (1.8-7.7); Neutrophils % 88.9 %; Nucleated Red Blood Cells % 0 %; Platelet Count 342 10^3/cmm (157-399); Red Blood Count 2.64 10^6/uL (3.85-5.65); Red Cell Distribution Width 15.8 % (12.1-15.1); White Blood Count 23.68 10^3/uL (3.29-11.43)
[2024-08-29 05:25] LABS: Alanine Aminotransferase 9 U/L (0-33); Albumin Level 2.2 g/dL (3.5-5.2); Alkaline Phosphatase 129 U/L (35-105); Anion Gap 15.6 (5-19); Aspartate Amino Transferase 24 U/L (0-32); Blood Urea Nitrogen 42 mg/dL (8-23); Calcium 8.7 mg/dL (8.5-10.5); Carbon Dioxide 19 mmol/L (22-29); Chloride 107 mmol/L (98-107); Creatinine Clr Calc Pharmacy 19.1892; D Dimer 2.15 ug/mLFEU (0-0.59); Glucose 102 mg/dL (65-115); Magnesium 1.7 mg/dL (1.7-2.3); Osmolality Calculated 297 mOsm/kg (285-295); Phosphorus 3.8 mg/dL (2.5-4.5); Potassium 3.6 mmol/L (3.5-5.1); Sodium 138 mmol/L (136-145); Total Bilirubin 0.5 mg/dL (0.15-1.2); Total Protein 5.2 g/dL (6.6-8.7)
[2024-08-29 05:30] LABS: Lactate (Lactic Acid level) 0.9 mmol/L (0.5-2.2)
[2024-08-29 05:47] LABS: Troponin T (5th) Once 137 ng/L (0-10)
[2024-08-29 05:57] LABS: NT Pro B Type Natriuretic Pept 13187 pg/mL (0-450)
[2024-08-29] MEDS: aspirin 81 mg EC Tablet PO (06:18)
[2024-08-29] MEDS: allopurinol 100 mg Tablet PO (06:18)
[2024-08-29 07:37] LABS: Partial Thromboplastin Time 168.6 SECONDS (23.9-36.7)
[2024-08-29] MEDS: cefepime 1,000 MG in sodium chloride 0.9% (plus) 50 ML 100 MG IV (07:44)
[2024-08-29] MEDS: mirtazapine 15 mg Tablet 7.5 MG PO (08:08)
[2024-08-29] MEDS: pantoprazole DR 40 mg Tablet PO (08:08)
[2024-08-29] MEDS: levothyroxine 88 mcg Tablet PO (08:09)
--- NOTE | 2024-08-29 08:17 | ECG_ITS ---
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 Measurements Intervals [place] Rate: 77 P: 77 HI: 173 QRS: -7 QRSD: 93 T: 32 QT: 391 QTc: 445 Interpretive Statements SINUS RHYTHM Compared to ECG 08/28/2024 22:07:26 Atrial fibrillation no longer present Electronically Signed On 08-30-2024 21:44:02 CASEWORK MANAGER by Lakhwinder Mcneal M.D. [id number]
[2024-08-29 09:48] LABS: Troponin(5th) Baseline 149 ng/L (0-10)
--- NOTE | 2024-08-29 10:00 | CTR_ITS ---
PROCEDURE INFORMATION: Exam: CT Abdomen And Pelvis Without Contrast Exam date and time: 08/29/2024 5:03 PM Age: 89 years old Clinical indication: Other: ? Of obstruction; Additional info: Assess for obstruction TECHNIQUE: Imaging protocol: Computed tomography of the abdomen and pelvis without contrast. Radiation optimization: All CT scans at this facility use at least one of these dose optimization techniques: automated exposure control; mA and/or kV adjustment per patient size (includes targeted exams where dose is matched to clinical indication); or iterative reconstruction. COMPARISON: CR XR hip RT 2-3V wo/w pel* [id number] 07/05/2023 11:26 AM RADIATION DOSE METRICS: Total DLP (mGy-cm): 552.03 FINDINGS: Tubes, catheters and devices: Catheter is identified within the urinary bladder. Lungs: Bilateral pulmonary linear interstitial opacities identified within lower lungs. Alveolar density within the posterior lower lobe bases bilaterally, worse on the right side. Pleural spaces: Small to moderate volume bilateral pleural effusions. Pleural effusion appears larger on the right side. Heart: Cardiac silhouette appears mildly enlarged. Coronary arteries: Coronary arterial calcifications are demonstrated. Liver: Liver appears heterogeneous with irregular border. Possible hepatic parenchymal disease. Gallbladder and biliary ducts: The gallbladder has been surgically removed. Surgical clips identified in the gallbladder fossa. Post cholecystectomy common biliary duct ectasia. If clinically indicated, consider correlation with liver function tests. Pancreas: Unremarkable. Spleen: Incidental calcifications noted within the spleen, compatible with old granulomatous disease. Adrenal glands: Normal. No mass. Kidneys and ureters: Small heterogeneous, irregular, atrophic kidneys bilaterally and symmetrically, suggesting chronic renal disease. No visualized renal hydronephrosis. No visible renal calculi. Stomach and bowel: Prominent fluid identified within the bowel, colon, suggesting diarrheal state. Findings compatible with infectious or inflammatory gastroenteritis, colitis. Prominent gastric wall thickening with hypodensity and adjacent edema is demonstrated. Slightly prominent small bowel loops with fluid throughout the abdomen and pelvis bilaterally. Colonic wall thickening involving the distal colon and rectum. Most prominent colonic wall thickening and edema involving the rectum with adjacent perirectal edema, presacral edema. No evidence for bowel obstruction. Colonic diverticulosis is noted, with greatest involvement of the sigmoid colon region. No definite visible evidence for focal acute diverticulitis. No evidence for pneumatosis intestinalis. Appendix: The visualized appendix appears unremarkable. Intraperitoneal space: Diffuse [id number] generalized abdominal pelvic mesenteric edema. Minimal volume of intraperitoneal fluid identified in the bilateral abdomen and pelvis. Vasculature: Aortic and mitral valve calcification demonstrated. Calcifications in the pelvis, most compatible with phleboliths. Moderate to severe atherosclerotic calcification demonstrated within the aorta. Moderate to severe diffuse atherosclerotic arterial vascular wall calcifications are demonstrated. No portal venous air identified. Lymph nodes: No enlarged lymph nodes. Urinary bladder: Urinary bladder appears small in size, limiting further assessment. Reproductive: Unremarkable as visualized. Bones/joints: Pectus excavatum deformity is demonstrated. Diffusely severely decreased bone density. Limited sensitivity to detect acute abnormalities. Levoscoliosis of the thoracolumbar spine is demonstrated. Moderate to severe generalized bony degenerative changes. Multilevel disc and osteophyte complexes with moderate to severe central canal and foraminal narrowing. Bony structures appear otherwise unremarkable. Soft tissues: Moderate to severe diffuse generalized anasarca. Other findings: Limited study with artifact created by extremities overlying the area of imaging. CT/CT kidney stone [id number] IMPRESSION: 1. Findings compatible with diarrheal state, infectious or inflammatory gastroenteritis and proctocolitis. 2. Small to moderate bilateral pleural effusions. Pulmonary atelectasis or acute infiltrates within lower chest bilaterally. 3. Mild enlarged cardiac silhouette. Coronary arterial and cardiac valvular calcifications. 4. Nonspecific heterogeneous and irregular appearance of the liver. Recommend correlation with liver function tests. 5. Colonic diverticulosis. 6. Generalized anasarca. 7. Chronic findings.
--- NOTE | 2024-08-29 10:17 | ECG_ITS ---
[facility] Date: 2024-08-29 Pat Name: Tonia Potts Department: Room: [facility] Gender: Female Philosophy Faculty: : 1935 Requested By: Marybeth Mata Order Number: [id number] Abel MD: Lakhwinder Mcneal M.D. Measurements Intervals [place] Rate: 75 P: 80 IN: 179 QRS: -9 QRSD: 90 T: 31 QT: 392 QTc: 438 Interpretive Statements SINUS RHYTHM WITH MARKED SINUS ARRHYTHMIA Compared to ECG 08/29/2024 08:41:23 No significant changes Electronically Signed On 08-30-2024 22:00:29 SHIP OFFICER by Lakhwinder Mcneal M.D. [id number]
[2024-08-29 11:49] LABS: Partial Thromboplastin Time 48.2 SECONDS (23.9-36.7)
[2024-08-29 12:38] LABS: Troponin 5 2HR 143.9 ng/L (0-10); Troponin 5 2HR Delta -5.1 ABS# (0-10)
--- NOTE | 2024-08-29 13:38 | P.PN_ITS ---
Subjective 2 Subjective: Seen this morning. Patient is confused. Alert oriented to self only. Mostly drowsy however does arouse and states why we are bothering her and we should stop touching her. Did not let me examine her. However I was able to auscultate and palpate abdomen Vitals/I&O/Wt Last Vital Signs Temp 99.7 F H 08/29/24 07:55 Pulse 72 08/29/24 12:30 Resp 21 H 08/29/24 12:30 BP 99/58 08/29/24 12:30 Pulse Ox 97 08/29/24 12:30 O2 Del Method Room Air 08/29/24 08:53 08/28/24 08/29/24 08/29/24 22:59 06:59 14:59 Intake Total 120 / 120 296.625 / 416.625 375.233 / 375.233 Output Total 150 / 150 Balance 120 / 120 146.625 / 266.625 375.233 / 375.233 Weight last 48 hrs Weight 61.235 kg Weight 61.371 kg Physical Exam 2 Narrative: General: No acute distress, AO x1 HEENT: PERRLA, pupils bilaterally equal and reactive, pallors not present Chest: Normal vesicular breath sounds, no added sounds, equal good air entry bilaterally CVS: S1-S2 irregular, tachycardia present Abdomen: Soft, mildly tender to palpation in the left lower quadrant and suprapubic areas. No organomegaly Neuro: It appears patient is nonambulatory at baseline. She has bilateral foot drop. Extremities: History of scarring over posterior aspect of the right calf. Shallow ulcerations noted over the posterior aspect. Stasis dermatitis bilaterally. Along the left upper and tarot lateral thigh, there is erythema and warmth concerning for cellulitis. Data 08/29/24 04:06 08/29/24 04:06 Micro: Microbiology 08/29/24 04:12 Blood Culture - Preliminary Blood SPECIMEN COLLECTED 08/29/24 04:06 Blood Culture - Preliminary Blood SPECIMEN COLLECTED A&P Assessment and plan (1) Atrial fibrillation: Patient presented to outside hospital with concern for UTI and cellulitis was found to be in A-fib with RVR. It appears patient has a history of A-fib, however does not appear to be on anticoagulation or other related rate limiting medication for the same. Currently blood pressure maintained, however was noted to be borderline low at the outside facility. Therefore we will start amiodarone 150 mg over 10 minutes followed by amiodarone infusion per protocol. Likely A-fib triggered by acute infection currently. (2) Elevated d-dimer: Elevated D-dimer at outside facility at 5.0. Started on presumptive anticoagulation with heparin drip due to concern for PE given history of chronic DVT. We will continue the same. Unable to get a CTA due to COLLEEN. Will check lower extremity Doppler to see if lower extremity DVT is still present. Uncertain why patient is not on anticoagulation, this may be related to history of falls. Patient currently has brace over her right forearm and elbow. Per senior care this has been on since June due to fracture. Will obtain x-ray of the right elbow and forearm (3) UTI (urinary tract infection): Urinary tract infection as evidenced by positive UA, likely acute cystitis, suprapubic tenderness present on exam. Start presumptive treatment with cefepime 1 g IV every 24 hours which is renally dosed for creatinine clearance of 18. Obtain urine culture and blood culture (4) Cellulitis: Left thigh cellulitis History of being MRSA screen positive in the past. Add linezolid 600 mg p.o. twice daily to cefepime as above. (5) Acute kidney injury superimposed on chronic kidney disease: COLLEEN on CKD Baseline creatinine ranges between 1.1-1.5. Patient currently has a Ureña catheter placed at the outside hospital for accurate urine output monitoring. Check renal imaging to assess for any obstruction. Encourage p.o. fluid intake. (6) Failure to thrive: Longstanding, poor functional status Plan DVT prophylaxis: Currently on a heparin drip presumptively DNR/DNI 08/29/2024 -Check sputum culture Gram stain ? Blood cultures, urine culture ? Continue amiodarone drip, cefepime, Zyvox ? Continue heparin drip ? CT kidney stone pending at this time ? Continue management as per H&P. Attestations 2 Medical Necessity Statement*: Patient requiring Levophed and requires ICU stay at this time. Diagnoses Atrial fibrillation I48.91 Elevated d-dimer R79.89 UTI (urinary tract infection) N39.0 Cellulitis L03.90 Acute kidney injury superimposed on chronic kidney disease N17.9; N18.9 Failure to thrive
[2024-08-29 16:11] LABS: Troponin 5 6HR Delta -22.7 ng/L (0-12)
[2024-08-29 16:12] LABS: Troponin 5 6HR 126.3 ng/L (0-10)
[2024-08-29] MEDS: norepinephrine 4 MG/250 ML BAG 15 MG IV (17:30)
[2024-08-29] MEDS: acetaminophen 325 mg Tablet 650 MG PO (18:21)
[2024-08-29] MEDS: amiodarone 200 mg Tablet 400 MG PO (23:48)
[2024-08-30] VITALS (195 sets, daily range): BP systolic 80–120; BP diastolic 46–67; PULSE 62–90; RESP 14–32; TEMP 36.7–37.2; O2SAT 88–100
[2024-08-30 04:18] LABS: Platelet Count 313 10^3/cmm (157-399)
[2024-08-30 04:56] LABS: Partial Thromboplastin Time 73.9 SECONDS (23.9-36.7)
[2024-08-30] MEDS: mirtazapine 15 mg Tablet 7.5 MG PO (08:16)
[2024-08-30] MEDS: pantoprazole DR 40 mg Tablet PO (08:17)
[2024-08-30] MEDS: aspirin 81 mg EC Tablet PO (08:17)
[2024-08-30] MEDS: levothyroxine 88 mcg Tablet PO (08:17)
[2024-08-30] MEDS: amiodarone 200 mg Tablet 400 MG PO ×2 (08:17→18:20)
[2024-08-30] MEDS: allopurinol 100 mg Tablet PO (08:17)
[2024-08-30] MEDS: cefepime 1,000 MG in sodium chloride 0.9% (plus) 50 ML 100 MG IV (08:17)
[2024-08-30] MEDS: sodium chloride 0.9% 1,000 ML 75 ML IV ×2 (08:55→22:16)
[2024-08-30 09:06] LABS: Basophils % 0.3 %; Eosinophils # 0.3 10^3/uL (0.0-0.8); Eosinophils % 1.9 %; Hematocrit 27.6 % (36-47); Lymphocytes # 1.3 10^3/uL (0.8-4.8); Lymphocytes % 9.6 %; Mean Corpuscular HGB Conc 29.7 g/dL (30-55); Mean Corpuscular Hemoglobin 32.3 pg (27-33); Mean Corpuscular Volume 108.7 fl (85-98); Mean Platelet Volume 9.6 fL (7.4-10.4); Monocytes # 0.6 10^3/uL (0.2-0.9); Monocytes % 4.2 %; Neutrophils # 11.51 10^3/uL (1.8-7.7); Neutrophils % 83.5 %; Nucleated Red Blood Cells % 0 %; Platelet Count 319 10^3/cmm (157-399); Red Blood Count 2.54 10^6/uL (3.85-5.65); Red Cell Distribution Width 15.8 % (12.1-15.1); White Blood Count 13.78 10^3/uL (3.29-11.43)
[2024-08-30 09:47] LABS: Alanine Aminotransferase 9 U/L (0-33); Albumin Level 1.9 g/dL (3.5-5.2); Alkaline Phosphatase 108 U/L (35-105); Aspartate Amino Transferase 24 U/L (0-32); Blood Urea Nitrogen 44 mg/dL (8-23); Calcium 8.6 mg/dL (8.5-10.5); Carbon Dioxide 19 mmol/L (22-29); Chloride 108 mmol/L (98-107); Creatinine Clr Calc Pharmacy 18.8372; Globulin 2.4 g/dL (1.3-4.6); Glucose 82 mg/dL (65-115); Osmolality Calculated 296 mOsm/kg (285-295); Sodium 138 mmol/L (136-145); Total Bilirubin 0.2 mg/dL (0.15-1.2); Total Protein 4.3 g/dL (6.6-8.7)
[2024-08-30 10:58] LABS: Partial Thromboplastin Time 68.7 SECONDS (23.9-36.7)
--- NOTE | 2024-08-30 11:38 | P.PN_ITS ---
Subjective 2 Subjective: Seen this morning. Patient still requiring Levophed. Blood pressure soft. Alert oriented x 2 today. More coherent compared to yesterday. White count 13,000. Creatinine 1.8. Vitals/I&O/Wt Last Vital Signs Temp 98.9 F 08/30/24 04:00 Pulse 76 08/30/24 10:08 Resp 18 08/30/24 10:08 BP 90/53 08/30/24 08:55 Pulse Ox 99 08/30/24 10:08 O2 Del Method Room Air 08/30/24 10:08 08/29/24 08/30/24 08/30/24 22:59 06:59 14:59 Intake Total 766.220 / 1141.453 245.80 / 1387.253 321.25 / 321.25 Output Total 400 / 400 325 / 725 Balance 366.220 / 741.453 -79.20 / 662.253 321.25 / 321.25 Weight last 48 hrs Weight 58.74 kg Weight 61.235 kg Weight 61.371 kg Physical Exam 2 Narrative: General: No acute distress, AO x2 HEENT: PERRLA, pupils bilaterally equal and reactive, pallors not present Chest: Normal vesicular breath sounds, no added sounds, equal good air entry bilaterally CVS: S1-S2 irregular, tachycardia present Abdomen: Soft, nontender Neuro: It appears patient is nonambulatory at baseline. She has bilateral foot drop. Extremities: History of scarring over posterior aspect of the right calf. Shallow ulcerations noted over the posterior aspect. Stasis dermatitis bilaterally. Along the left upper and lateral thigh, there is erythema and warmth concerning for cellulitis. Data 08/30/24 04:01 08/30/24 04:01 Micro: Microbiology 08/29/24 00:11 Urine Culture - Preliminary Urine Catheterized 08/29/24 04:12 Blood Culture - Preliminary Blood NEGATIVE TO DATE 08/29/24 04:06 Blood Culture - Preliminary Blood NEGATIVE TO DATE A&P Assessment and plan (1) Atrial fibrillation: Patient presented to outside hospital with concern for UTI and cellulitis was found to be in A-fib with RVR. It appears patient has a history of A-fib, however does not appear to be on anticoagulation or other related rate limiting medication for the same. Currently blood pressure maintained, however was noted to be borderline low at the outside facility. Therefore we will start amiodarone 150 mg over 10 minutes followed by amiodarone infusion per protocol. Likely A-fib triggered by acute infection currently. (2) Elevated d-dimer: Elevated D-dimer at outside facility at 5.0. Started on presumptive anticoagulation with heparin drip due to concern for PE given history of chronic DVT. We will continue the same. Unable to get a CTA due to COLLEEN. Will check lower extremity Doppler to see if lower extremity DVT is still present. Uncertain why patient is not on anticoagulation, this may be related to history of falls. Patient currently has brace over her right forearm and elbow. Per [facility] this has been on since June due to fracture. Will obtain x-ray of the right elbow and forearm (3) UTI (urinary tract infection): Urinary tract infection as evidenced by positive UA, likely acute cystitis, suprapubic tenderness present on exam. Start presumptive treatment with cefepime 1 g IV every 24 hours which is renally dosed for creatinine clearance of 18. Obtain urine culture and blood culture (4) Cellulitis: Left thigh cellulitis History of being MRSA screen positive in the past. Add linezolid 600 mg p.o. twice daily to cefepime as above. (5) Acute kidney injury superimposed on chronic kidney disease: COLLEEN on CKD Baseline creatinine ranges between 1.1-1.5. Patient currently has a Ureña catheter placed at the outside hospital for accurate urine output monitoring. Check renal imaging to assess for any obstruction. Encourage p.o. fluid intake. (6) Failure to thrive: Longstanding, poor functional status Plan DVT prophylaxis: Currently on a heparin drip presumptively DNR/DNI 08/30/2024 -Pending sputum culture Gram stain ? Blood cultures, urine culture, pending ? Amiodarone drip has been turned off. Placed on amiodarone 400 mg oral twice daily. Continue, cefepime, Zyvox ? Continue heparin drip ? CT abdomen pelvis completed. Findings compatible with diarrheal state infectious or inflammatory gastroenteritis, proctocolitis. Small to moderate bilateral pleural effusions, pulmonary atelectasis or acute infiltrates within lower chest bilaterally. Mild enlarged cardiac silhouette. Coronary arterial and cardiac vascular calcifications. Nonspecific heterogeneous and irregular appearance of the liver. Colonic diverticulosis, generalized anasarca, chronic findings. Blahnik wall thickening involving distal colon and rectum. Perirectal edema, presacral edema present. No evidence of bowel obstruction. ? Continue management as per H&P. -Continue to wean off vasopressors. ? Continue broad-spectrum antibiotics at this time. WBC count has improved to 13,000. Attestations 2 Medical Necessity Statement*: Patient requiring Levophed and requires ICU stay at this time. Diagnoses Atrial fibrillation I48.91 Elevated d-dimer R79.89 UTI (urinary tract infection) N39.0 Cellulitis L03.90 Acute kidney injury superimposed on chronic kidney disease N17.9; N18.9 Failure to thrive
[2024-08-30] MEDS: linezolid 600 mg Tablet PO (12:51)
[2024-08-30] MEDS: heparin drip 25,000 UNIT/500 ML PREMIX 13 UNIT IV (14:48)
[2024-08-30 16:19] LABS: Partial Thromboplastin Time 70.4 SECONDS (23.9-36.7)
[2024-08-30 22:40] LABS: Partial Thromboplastin Time 57.6 SECONDS (23.9-36.7)
[2024-08-31] VITALS (152 sets, daily range): BP systolic 80–119; BP diastolic 46–69; PULSE 72–125; RESP 13–28; TEMP 36.6–37; O2SAT 78–100
[2024-08-31] MEDS: linezolid 600 mg Tablet PO ×3 (00:23→22:28)
[2024-08-31 05:12] LABS: Basophils % 0.3 %; Eosinophils # 0.2 10^3/uL (0.0-0.8); Eosinophils % 1.4 %; Hematocrit 25.8 % (36-47); Lymphocytes # 1.2 10^3/uL (0.8-4.8); Lymphocytes % 8.4 %; Mean Corpuscular HGB Conc 30.6 g/dL (30-55); Mean Corpuscular Hemoglobin 31.7 pg (27-33); Mean Corpuscular Volume 103.6 fl (85-98); Mean Platelet Volume 9.9 fL (7.4-10.4); Monocytes # 0.5 10^3/uL (0.2-0.9); Monocytes % 3.4 %; Neutrophils # 12.07 10^3/uL (1.8-7.7); Neutrophils % 86.1 %; Nucleated Red Blood Cells % 0 %; Platelet Count 316 10^3/cmm (157-399); Red Blood Count 2.49 10^6/uL (3.85-5.65); Red Cell Distribution Width 15.7 % (12.1-15.1); White Blood Count 14.01 10^3/uL (3.29-11.43)
[2024-08-31 05:14] LABS: Partial Thromboplastin Time 65.4 SECONDS (23.9-36.7)
[2024-08-31 05:47] LABS: Alanine Aminotransferase 8 U/L (0-33); Albumin Level 1.9 g/dL (3.5-5.2); Alkaline Phosphatase 106 U/L (35-105); Anion Gap 15.7 (5-19); Aspartate Amino Transferase 17 U/L (0-32); Blood Urea Nitrogen 44 mg/dL (8-23); Calcium 8.6 mg/dL (8.5-10.5); Carbon Dioxide 17 mmol/L (22-29); Chloride 109 mmol/L (98-107); Creatinine Clr Calc Pharmacy 18.8372; Globulin 2.9 g/dL (1.3-4.6); Glucose 69 mg/dL (65-115); Osmolality Calculated 296 mOsm/kg (285-295); Phosphorus 4.3 mg/dL (2.5-4.5); Potassium 3.7 mmol/L (3.5-5.1); Sodium 138 mmol/L (136-145); Total Bilirubin 0.2 mg/dL (0.15-1.2); Total Protein 4.8 g/dL (6.6-8.7)
[2024-08-31] MEDS: aspirin 81 mg EC Tablet PO (08:34)
[2024-08-31] MEDS: amiodarone 200 mg Tablet 400 MG PO (08:34)
[2024-08-31] MEDS: mirtazapine 15 mg Tablet 7.5 MG PO (08:34)
[2024-08-31] MEDS: cefepime 1,000 MG in sodium chloride 0.9% (plus) 50 ML 100 MG IV (08:34)
[2024-08-31] MEDS: pantoprazole DR 40 mg Tablet PO (08:34)
[2024-08-31] MEDS: levothyroxine 88 mcg Tablet PO (08:34)
[2024-08-31] MEDS: allopurinol 100 mg Tablet PO (08:34)
[2024-08-31] MEDS: pantoprazole 40 mg SDV IVP ×2 (08:47→22:27)
[2024-08-31 09:05] LABS: D Dimer 1.59 ug/mLFEU (0-0.59)
[2024-08-31] MEDS: sodium chloride 0.9% 1,000 ML 75 ML IV (10:55)
[2024-08-31 11:15] LABS: Basophils % 0.2 %; Eosinophils # 0.2 10^3/uL (0.0-0.8); Eosinophils % 1.3 %; Hematocrit 26.6 % (36-47); Lymphocytes # 1.1 10^3/uL (0.8-4.8); Lymphocytes % 7.5 %; Mean Corpuscular HGB Conc 30.5 g/dL (30-55); Mean Corpuscular Hemoglobin 31.6 pg (27-33); Mean Corpuscular Volume 103.9 fl (85-98); Mean Platelet Volume 9.1 fL (7.4-10.4); Monocytes # 0.6 10^3/uL (0.2-0.9); Monocytes % 4.2 %; Neutrophils # 12.46 10^3/uL (1.8-7.7); Neutrophils % 86.3 %; Nucleated Red Blood Cells % 0 %; Platelet Count 308 10^3/cmm (157-399); Red Blood Count 2.56 10^6/uL (3.85-5.65); Red Cell Distribution Width 15.9 % (12.1-15.1); White Blood Count 14.44 10^3/uL (3.29-11.43)
--- NOTE | 2024-08-31 12:48 | P.PN_ITS ---
Subjective 2 Subjective: Globin 7.9 this morning. Patient had had a history of acute anemia in the past where she required a blood transfusion. Currently on a heparin drip. WBC 14,000. Cellulitis improving. Creatinine 1.8. She is much more coherent and mentally back to her baseline. I have seen her before and taking care of her in the past. Patient is mainly bedbound. Heart rate controlled. Pulse 77-80 range. Afebrile. Saturating 98% on room air. D-dimer 1.59 this morning. Age-adjusted, VTE unlikely. Vitals/I&O/Wt Last Vital Signs Temp 98.6 F 08/31/24 01:00 Pulse 77 08/31/24 12:10 Resp 22 H 08/31/24 12:10 BP 100/53 08/31/24 12:10 Pulse Ox 98 08/31/24 12:10 O2 Del Method Room Air 08/31/24 09:46 08/30/24 08/31/24 08/31/24 22:59 06:59 14:59 Intake Total 1381.570 / 1821.120 83.417 / 2865.031 2745.50 / 1326.50 Output Total 450 / 450 Balance 1381.570 / 1821.120 -366.583 / 5497.201 0548.50 / 1326.50 Weight last 48 hrs Weight 61.008 kg Weight 58.74 kg Physical Exam 2 Narrative: General: No acute distress, AO x3 HEENT: PERRLA, pupils bilaterally equal and reactive, pallors not present Chest: Normal vesicular breath sounds, no added sounds, equal good air entry bilaterally CVS: S1-S2 irregular, rate controlled Abdomen: Soft, nontender Neuro: It appears patient is nonambulatory at baseline. She has bilateral foot drop. Extremities: History of scarring over posterior aspect of the right calf. Shallow ulcerations noted over the posterior aspect. Stasis dermatitis bilaterally. Along the left upper and lateral thigh, there is erythema and warmth concerning for cellulitis which is significantly improved at this point.. Data 08/31/24 10:36 08/31/24 04:31 Micro: Microbiology 08/29/24 00:11 Urine Culture - Preliminary Urine Catheterized Strep agalactiae - (group b) Gram Negative Rods A&P Assessment and plan (1) Atrial fibrillation: Patient presented to outside hospital with concern for UTI and cellulitis was found to be in A-fib with RVR. It appears patient has a history of A-fib, however does not appear to be on anticoagulation or other related rate limiting medication for the same. Currently blood pressure maintained, however was noted to be borderline low at the outside facility. Therefore we will start amiodarone 150 mg over 10 minutes followed by amiodarone infusion per protocol. Likely A-fib triggered by acute infection currently. (2) Elevated d-dimer: Elevated D-dimer at outside facility at 5.0. Started on presumptive anticoagulation with heparin drip due to concern for PE given history of chronic DVT. We will continue the same. Unable to get a CTA due to COLLEEN. Will check lower extremity Doppler to see if lower extremity DVT is still present. Uncertain why patient is not on anticoagulation, this may be related to history of falls. Patient currently has brace over her right forearm and elbow. Per shelter this has been on since June due to fracture. Will obtain x-ray of the right elbow and forearm (3) UTI (urinary tract infection): Urinary tract infection as evidenced by positive UA, likely acute cystitis, suprapubic tenderness present on exam. Start presumptive treatment with cefepime 1 g IV every 24 hours which is renally dosed for creatinine clearance of 18. Obtain urine culture and blood culture (4) Cellulitis: Left thigh cellulitis History of being MRSA screen positive in the past. Add linezolid 600 mg p.o. twice daily to cefepime as above. (5) Acute kidney injury superimposed on chronic kidney disease: COLLEEN on CKD Baseline creatinine ranges between 1.1-1.5. Patient currently has a Ureña catheter placed at the outside hospital for accurate urine output monitoring. Check renal imaging to assess for any obstruction. Encourage p.o. fluid intake. (6) Failure to thrive: Longstanding, poor functional status Plan DVT prophylaxis: Currently on a heparin drip presumptively DNR/DNI 08/30/2024 -Pending sputum culture Gram stain ? Blood cultures, urine culture, pending ? Amiodarone drip has been turned off. Placed on amiodarone 400 mg oral twice daily. Continue, cefepime, Zyvox ? Continue heparin drip ? CT abdomen pelvis completed. Findings compatible with diarrheal state infectious or inflammatory gastroenteritis, proctocolitis. Small to moderate bilateral pleural effusions, pulmonary atelectasis or acute infiltrates within lower chest bilaterally. Mild enlarged cardiac silhouette. Coronary arterial and cardiac vascular calcifications. Nonspecific heterogeneous and irregular appearance of the liver. Colonic diverticulosis, generalized anasarca, chronic findings. Blahnik wall thickening involving distal colon and rectum. Perirectal edema, presacral edema present. No evidence of bowel obstruction. ? Continue management as per H&P. -Continue to wean off vasopressors. ? Continue broad-spectrum antibiotics at this time. WBC count has improved to 13,000. 08/31/2024 -I will de-escalate antibiotics to doxycycline and levofloxacin at discharge. Will complete a total 7-day course. Stop cefepime and linezolid at discharge. ? Reduce amiodarone down to 200 twice daily given patient's weight of 61 kg. After 7 days we will reduce to 200 mg daily. ? Ideally patient should be on anticoagulation for stroke prevention and there was also suspicion of PE at an outside facility and patient is on a heparin drip. Patient's hemoglobin has steadily trended downwards since admission down to 7.9 this morning. She has required a blood transfusion in the past. As per previous documentation family not interested in aggressive measures of pursuing endoscopy colonoscopy. I will go ahead and place patient on Protonix 40 twice daily. Will repeat a CBC this morning. I will stop heparin drip at this time. D-dimer 1.59. PTE unlikely as age-adjusted D-dimer does not meet criteria. She is on room air saturating 98%. Lower extremity Dopplers negative for DVT as well. Creatinine 1.8 therefore CTA chest cannot be pursued. ? Patient may transfer to cardiac stepdown unit today. ? If blood pressure continues to remain stable in next 24 hours we will consider discharging patient from the hospital. Will call family to update today. ? Continue aspirin atorvastatin levothyroxine mirtazapine. ? Patient eating dysphagia level 4 diet. She is tolerating that well. ? Urine culture pending. Attestations 2 Medical Necessity Statement*: Transfer to floor today. Discharge to nursing facility once urine culture results and if patient's hemoglobin, vitals remained stable over a 24-hour period. Diagnoses Atrial fibrillation I48.91 Elevated d-dimer R79.89 UTI (urinary tract infection) N39.0 Cellulitis L03.90 Acute kidney injury superimposed on chronic kidney disease N17.9; N18.9 Failure to thrive
--- NOTE | 2024-08-31 14:07 | PC.SOCIAL ---
IMM Updated Updated pt on IMM. No questions voiced. Provided pt a copy. Initialed, dated, & timed a copy & placed in chart.
[2024-08-31] MEDS: amiodarone 200 mg Tablet PO (17:34)
[2024-09-01] VITALS: BP 96/54; PULSE 77; RESP 20; TEMP 36.9; O2SAT 96
[2024-09-01] MEDS: sodium chloride 0.9% 1,000 ML 75 ML IV (00:55)
[2024-09-01 03:42] LABS: Basophils % 0.4 %; Eosinophils # 0.2 10^3/uL (0.0-0.8); Eosinophils % 2.3 %; Hematocrit 24.9 % (36-47); Lymphocytes # 1.2 10^3/uL (0.8-4.8); Lymphocytes % 11.5 %; Mean Corpuscular HGB Conc 31.3 g/dL (30-55); Mean Corpuscular Hemoglobin 32.1 pg (27-33); Mean Corpuscular Volume 102.5 fl (85-98); Mean Platelet Volume 8.9 fL (7.4-10.4); Monocytes # 0.5 10^3/uL (0.2-0.9); Monocytes % 5.1 %; Neutrophils # 8.38 10^3/uL (1.8-7.7); Neutrophils % 79.8 %; Nucleated Red Blood Cells % 0 %; Platelet Count 263 10^3/cmm (157-399); Red Blood Count 2.43 10^6/uL (3.85-5.65); Red Cell Distribution Width 15.9 % (12.1-15.1); White Blood Count 10.49 10^3/uL (3.29-11.43)
[2024-09-01 04:00] VITALS: BP 104/57; PULSE 77; RESP 21; TEMP 36.9; O2SAT 99
[2024-09-01 04:04] LABS: Anion Gap 12.7 (5-19); Blood Urea Nitrogen 45 mg/dL (8-23); Calcium 8.4 mg/dL (8.5-10.5); Carbon Dioxide 18 mmol/L (22-29); Chloride 114 mmol/L (98-107); Creatinine Clr Calc Pharmacy 18.1332; Glucose 87 mg/dL (65-115); Magnesium 1.9 mg/dL (1.7-2.3); Osmolality Calculated 303 mOsm/kg (285-295); Potassium 3.7 mmol/L (3.5-5.1); Sodium 141 mmol/L (136-145)
[2024-09-01 06:00] VITALS: PULSE 77
[2024-09-01] MEDS: allopurinol 100 mg Tablet PO (07:02)
[2024-09-01] MEDS: aspirin 81 mg EC Tablet PO (07:02)
[2024-09-01 07:18] VITALS: BP 107/56; PULSE 93; RESP 20; TEMP 36.7; O2SAT 99
[2024-09-01] MEDS: acetaminophen 325 mg Tablet 650 MG PO (08:33)
[2024-09-01] MEDS: mirtazapine 15 mg Tablet 7.5 MG PO (08:35)
[2024-09-01] MEDS: cefepime 1,000 MG in sodium chloride 0.9% (plus) 50 ML 100 MG IV (08:35)
[2024-09-01] MEDS: levothyroxine 88 mcg Tablet PO (08:35)
[2024-09-01] MEDS: amiodarone 200 mg Tablet PO (08:35)
[2024-09-01] MEDS: pantoprazole 40 mg SDV IVP (08:39)
[2024-09-01 09:46] VITALS: PULSE 75; RESP 18; O2SAT 97
[2024-09-01 11:04] LABS: Basophils % 0.3 %; Eosinophils # 0.2 10^3/uL (0.0-0.8); Eosinophils % 2.1 %; Hematocrit 24.7 % (36-47); Lymphocytes % 10.4 %; Mean Corpuscular HGB Conc 31.2 g/dL (30-55); Mean Corpuscular Hemoglobin 32.4 pg (27-33); Mean Corpuscular Volume 103.8 fl (85-98); Mean Platelet Volume 9.2 fL (7.4-10.4); Monocytes # 0.5 10^3/uL (0.2-0.9); Monocytes % 4.6 %; Neutrophils % 81.7 %; Nucleated Red Blood Cells % 0 %; Platelet Count 273 10^3/cmm (157-399); Red Blood Count 2.38 10^6/uL (3.85-5.65); Red Cell Distribution Width 16.1 % (12.1-15.1); White Blood Count 9.92 10^3/uL (3.29-11.43)
--- NOTE | 2024-09-01 11:35 | P.DS_ITS ---
Discharge Providers Date of Admission: 08/28/24 21:27 Date of Discharge: September 01, 2024 Attending Provider at Admission: Sundar Junior MD Attending Provider at Discharge: Sandra Gomes MD Primary Care Provider: Kavin Quick Diagnoses at Discharge Discharge Diagnosis (1) Atrial fibrillation: Status: Acute (2) Elevated d-dimer: Status: Acute (3) UTI (urinary tract infection): Status: Acute (4) Cellulitis: Status: Acute (5) Acute kidney injury superimposed on chronic kidney disease: Status: Acute (6) Failure to thrive: Status: Acute Reason for Visit Reason for Visit: CHF UroSepsis Hospital Course Hospital Course Patient initially presented with UTI cellulitis and required Levophed. She also had A-fib with RVR. She was kept on amiodarone drip and transition to oral amiodarone eventually. D-dimer elevated at outside facility. Was on heparin drip for concern for PE given history of chronic DVT. Venous Dopplers ruled out DVT. CTA chest unable to be done due to elevated creatinine. Patient is mainly bedbound. In the past she has had anemia requiring blood transfusion and, has not wanted aggressive testing such as endoscopy colonoscopy. Globin has remained stable on heparin drip however she has anemia with hemoglobin in range of 7 today. I repeated hemoglobin at this still 7.7. With values like these I am hesitant to place patient on Eliquis. I believe it would do more harm than good. She is bedbound. Does have a history of A-fib and now on amiodarone. Heparin drip was stopped. D-dimer was repeated. 1.59. Pulmonary embolism unlikely as age-adjusted D-dimer does not meet criteria for it. She is saturating on room air 98%. I would continue aspirin atorvastatin levothyroxine mirtazapine continue dysphagia diet. Urine culture resulted and she was placed on doxycycline, cefdinir and Levaquin at discharge to cover for cellulitis and UTI for another 5 days. Patient mental status is back to baseline. She may go back to residential today. Patient looking forward to leaving the hospital. Physical Exam Narrative: General: No acute distress, AO x3 HEENT: PERRLA, pupils bilaterally equal and reactive, pallors not present Chest: Normal vesicular breath sounds, no added sounds, equal good air entry bilaterally CVS: S1-S2 irregular, rate controlled Abdomen: Soft, nontender Neuro: It appears patient is nonambulatory at baseline. She has bilateral foot drop. Extremities: History of scarring over posterior aspect of the right calf. Shallow ulcerations noted over the posterior aspect. Stasis dermatitis bilaterally. Along the left upper and lateral thigh, there is erythema and warmth concerning for cellulitis which is significantly improved at this point.. Discharge Data Studies Completed and Pending Completed Studies During Hospitalization Category Date Time Status CT kidney stone [id number] Routine Cat Scan 08/29/24 10:00 Completed XR elbow RT 2V [id number] Routine Exams 08/29/24 00:07 [place] [id number] Routine Ultrasound 08/29/24 00:12 Completed Pending at discharge Category Date Time Status Blood Culture AM LABS Lab 08/29/24 04:12 Results Sputum Culture and Gram Stain Stat Lab 08/29/24 13:38 Uncollected Urine Culture Stat Lab 08/28/24 23:19 Results Radiology Impressions Elbow X-Ray 08/29/24 00:07 IMPRESSION: No acute abnormality. Mild osteoarthritis. Abdomen/Pelvis CT 08/29/24 10:00 IMPRESSION: 1. Findings compatible with diarrheal state, infectious or inflammatory gastroenteritis and proctocolitis. 2. Small to moderate bilateral pleural effusions. Pulmonary atelectasis or acute infiltrates within lower chest bilaterally. 3. Mild enlarged cardiac silhouette. Coronary arterial and cardiac valvular calcifications. 4. Nonspecific heterogeneous and irregular appearance of the liver. Recommend correlation with liver function tests. 5. Colonic diverticulosis. 6. Generalized anasarca. 7. Chronic findings. Laboratory Results WBC 9.92 10^3/uL (3.29-11.43) 09/01/24 10:47 RBC 2.38 10^6/uL (3.85-5.65) L 09/01/24 10:47 Hgb 7.70 g/dL (11.27-16.99) L 09/01/24 10:47 Hct 24.7 % (36-47) L 09/01/24 10:47 MCV 103.8 fl (85-98) H 09/01/24 10:47 MCH 32.4 pg (27-33) 09/01/24 10:47 MCHC 31.2 g/dL (30-55) 09/01/24 10:47 RDW 16.1 % (12.1-15.1) H 09/01/24 10:47 Plt Count 273 10^3/cmm (157-399) 09/01/24 10:47 MPV 9.2 fL (7.4-10.4) 09/01/24 10:47 Neut % (Auto) 81.7 % 09/01/24 10:47 Lymph % (Auto) 10.4 % 09/01/24 10:47 Davidson % (Auto) 4.6 % 09/01/24 10:47 Eos % (Auto) 2.1 % 09/01/24 10:47 Baso % (Auto) 0.3 % 09/01/24 10:47 Neut # (Auto) 8.10 10^3/uL (1.8-7.7) H 09/01/24 10:47 Lymph # (Auto) 1.0 10^3/uL (0.8-4.8) 09/01/24 10:47 Davidson # (Auto) 0.5 10^3/uL (0.2-0.9) 09/01/24 10:47 Eos # (Auto) 0.2 10^3/uL (0.0-0.8) 09/01/24 10:47 Baso # (Auto) 0.0 10^3/uL (0.0-0.1) 09/01/24 10:47 Nucleated RBC % (auto) 0 % 09/01/24 10:47 Nucleated RBCs # 0.0 /100WBC 09/01/24 10:47 APTT 52.0 SECONDS (23.9-36.7) H 08/31/24 10:36 D-Dimer 1.59 ug/mLFEU (0-0.59) H 08/31/24 04:30 Sodium 141 mmol/L (136-145) 09/01/24 03:22 Potassium 3.7 mmol/L (3.5-5.1) 09/01/24 03:22 Chloride 114 mmol/L (98-107) H 09/01/24 03:22 Carbon Dioxide 18 mmol/L (22-29) L 09/01/24 03:22 Anion Gap 12.7 (5-19) 09/01/24 03:22 BUN 45 mg/dL (8-23) H 09/01/24 03:22 Creatinine 1.9 mg/dL (0.5-0.9) H 09/01/24 03:22 GFR Calculation Not Reportable 09/01/24 03:22 Glucose 87 mg/dL (65-115) 09/01/24 03:22 Calculated Osmolality 303 mOsm/kg (285-295) H 09/01/24 03:22 Lactate 0.9 mmol/L (0.5-2.2) 08/29/24 04:06 Calcium 8.4 mg/dL (8.5-10.5) L 09/01/24 03:22 Phosphorus 4.3 mg/dL (2.5-4.5) 08/31/24 04:31 Magnesium 1.9 mg/dL (1.7-2.3) 09/01/24 03:22 Total Bilirubin 0.2 mg/dL (0.15-1.2) 08/31/24 04:31 AST 17 U/L (0-32) 08/31/24 04:31 ALT 8 U/L (0-33) 08/31/24 04:31 Alkaline Phosphatase 106 U/L (35-105) H 08/31/24 04:31 Troponin T 5th Gen ng/L 137 ng/L (0-10) H* 08/29/24 04:06 Troponin T Baseline 149 ng/L (0-10) H* 08/29/24 08:56 Troponin T 120 Minute 143.9 ng/L (0-10) H 08/29/24 11:36 Delta Troponin T -5.1 ABS# (0-10) L 08/29/24 11:36 Troponin T Hi Sens 6Hr 126.3 ng/L (0-10) H 08/29/24 15:15 Troponin T Hi Sens 6Hr Delta -22.7 ng/L (0-12) L 08/29/24 15:15 NT-Pro-B Natriuret Pep 95961 pg/mL (0-450) H 08/29/24 04:06 Total Protein 4.8 g/dL (6.6-8.7) L 08/31/24 04:31 Albumin 1.9 g/dL (3.5-5.2) L 08/31/24 04:31 Globulin 2.9 g/dL (1.3-4.6) 08/31/24 04:31 Vitals Last Vital Signs Temp 98.0 F 09/01/24 07:18 Pulse 75 09/01/24 09:46 Resp 18 09/01/24 09:46 BP 107/56 09/01/24 07:18 Pulse Ox 97 09/01/24 09:46 O2 Del Method Room Air 09/01/24 09:46 Discharge Plan Discharge Patient Disposition: Xfer SNF Condition: Stable Prescriptions: New amiodarone [Pacerone] 200 mg Tablet See Rx Instructions .ROUTE .COMPLEX Qty: 30 0RF Rx Instructions: 200 mg twice a day x 4 days then reduce dose to 200 mg daily. levofloxacin 500 mg tablet 500 mg PO DAILY 5 Days Qty: 5 0RF doxycycline hyclate 100 mg capsule 100 mg PO BID 5 Days Qty: 10 0RF cefdinir 300 mg capsule 300 mg PO BID 5 Days Qty: 10 0RF Continued cholecalciferol (vitamin D3) 50 mcg (2,000 unit) capsule 50 mcg PO DAILY@07 allopurinol 100 mg tablet 100 mg PO DAILY@07 (DME) velcro cock-up splint See Rx Instructions .Route .MEDSUPPLY Qty: 1 0RF Rx Instructions: As directed mirtazapine 15 mg tablet 7.5 mg PO DAILY famotidine 20 mg tablet 20 mg PO DAILY acetaminophen [Tylenol] 325 mg Tablet 650 mg PO Q6H PRN (Reason: Pain) polyethylene glycol 3350 [Miralax] 17 gram Powder In Packet 17 g PO DAILY magnesium hydroxide [Milk of Magnesia] 400 mg/5 mL Suspension 30 ml PO DAILY PRN (Reason: Constipation) bisacodyl [Dulcolax (bisacodyl)] 10 mg Suppository 10 mg [facility] DAILY PRN (Reason: Constipation) PNV cmb#95-ferrous fumarate-FA [ Multivitamins] 28 mg iron- 800 mcg Tablet 1 tab PO DAILY@07 naloxone 2 mg/2 mL Syringe Kit See Rx Instructions .ROUTE .COMPLEX Rx Instructions: inject 2mg im prn oproid overdose atorvastatin 40 mg tablet 40 mg PO DAILY@20 aspirin 81 mg tablet,delayed release (DR/EC) 81 mg PO DAILY@07 albuterol sulfate 2.5 mg /3 mL (0.083 %) solution for nebulization 2.5 mg inhalation TID PRN (Reason: wheezing) Qty: 75 0RF levothyroxine 88 mcg tablet 88 mcg PO DAILY Discharge Orders: Discharge Order (Routine); Ordered 09/01/24 Ordered By: Sandra Gomes Other Ambulatory Orders: Complete Blood Count w/Auto (Q7D) Timeframe: 20240904 Location: Determined by Patient Ordered By: Sandra Gomes Referrals: [facility] [Outside] Discharge Diet: As Directed Discharge Activity: Resume usual activity Patient Instructions: Doxycycline (By mouth), Amiodarone (By mouth), Levofloxacin (By mouth), A-fib (Atrial Fibrillation) (DC), Urinary Tract Infection in Women (DC) Discharge Attestations 2 Time Spent in Discharge Care*: greater than 30 min Quality Metrics Clinical Quality Measures [ No reported AMI, CVA or VTE this stay] Coding Level of Care Code Acute Code for Chg Fwd Diagnoses Atrial fibrillation I48.91 Elevated d-dimer R79.89 UTI (urinary tract infection) N39.0 Cellulitis L03.90 Acute kidney injury superimposed on chronic kidney disease N17.9; N18.9 Failure to thrive
[2024-09-01 12:00] VITALS: BP 103/61; PULSE 73; RESP 16; TEMP 36.2; O2SAT 93
--- NOTE | 2024-09-01 12:26 | PC.NURSE ---
Patient to be discharged to [facility]. Report called to ERNESTO Maya. Patient to be transported by stretcher.
== END 2024-09-01 15:15 | disposition intermediate care facility (04) | DRG 603 ==
LOC: ICU 08-30 01:19 → CSU 08-31 12:33
PROVIDERS: Internal Medicine; Student in an Organized Health Care Education/Training Program; Admitting Provider Student in an Organized Health Care Education/Training Program; PCP Family Medicine; Visit Provider Internal Medicine
DX: L03.116 Cellulitis of left lower limb (principal); N17.9 Acute kidney failure, unspecified; I48.91 Unspecified atrial fibrillation; N30.90 Cystitis, unspecified without hematuria; N18.9 Chronic kidney disease, unspecified; R62.7 Adult failure to thrive; Z68.23 Body mass index [BMI] 23.0-23.9, adult; D64.9 Anemia, unspecified; Z66 Do not resuscitate; E78.5 Hyperlipidemia, unspecified; E03.9 Hypothyroidism, unspecified; Z74.01 Bed confinement status; Z86.718 Personal history of other venous thrombosis and embolism; Z86.14 Personal history of Methicillin resistant Staphylococcus aureus infection; Z79.82 Long term (current) use of aspirin
CPT/HCPCS: 36415; 51798; 73070; 74176; 80048; 80053; 83605; 83735; 83880; 84100; 84484; 85025; 85049; 85378; 85730; 87040; 87077; 87086; 87186; 93005; 93970; J0283; J0692; J1644; J2470; J7030